=== PATIENT | female | born 1940 | race Caucasian/White ===

== ENCOUNTER 2017-11-27 08:20 | Day surgery (SDC) | payer MEDICARE, OTHER, SELFPAY ==
[2017-11-27 09:03] VITALS: BP 125/68; PULSE 68; RESP 16; TEMP 36.3; O2SAT 97
[2017-11-27] MEDS: PROPARACAINE 0.5% OPHTH SOL 2 DROPS EYE-OP (09:10)
[2017-11-27] MEDS: CATARACT EYE COMPOUND (10 DROPS/SYRINGE) 3 DROPS EYE-OP (09:11)
[2017-11-27 09:17] VITALS: BMI 23.1
--- NOTE | 2017-11-27 10:09 | PM.PREOP ---
Pre-operative Note Interval Note Pre-op Check: History & Physical Reviewed by Physician
[2017-11-27] MEDS: TRIAMCINOLONE 50 MG/5 ML VIAL INJ (10:21)
[2017-11-27] MEDS: CHONDROIDTIN/SOD HYALURONATE 1.05 ML SYRINGE INTRAOCULA (10:21)
[2017-11-27] MEDS: MOXIFLOXACIN OPHTH DROPS 3 ML BOTTLE 2 DROPS INJ (10:21)
[2017-11-27] MEDS: TETRACAINE 0.5% OPHTH DROPS 15 ML 2 DROPS EYE-LEFT (10:22)
[2017-11-27] MEDS: PHENYLEPHRINE/LIDOCAINE 3ML VIAL (OR) EYE-OP (10:23)
[2017-11-27] MEDS: LIDOCAINE JELLY 2% 5 ML 1 APPLIC TOP (10:23)
[2017-11-27] MEDS: BALANCED SALT IRRIG SOLN NO.2 500 ML, EPINEPHrine 1 MG IRR (10:24)
--- NOTE | 2017-11-27 10:30 | P.OP_ITS ---
Operative Date/Time/Diagnoses - Pre-op diagnosis: Cataract Left eye Post-op diagnosis: same Procedure & Clinicians Surgeon: Emir Michelle Anesthesia Type: MAC +/- and Sedation Operative Notes Procedure in detail: Patient brought to the operating suite. Tetracaine drops placed in the left eye. Patient was prepped and draped in sterile manner. Wire lid speculum was placed in the eye. Betadine drops were placed on the eye. This was irrigated. Lidocaine jelly was placed on the eye. A paracentesis port was created with a side-port blade. 0.1 mL 1% preservative free lidocaine was injected into the anterior chamber. The anterior chamber was deepened with viscoelastic. 2.6 mm keratome was used to create a temporal clear corneal incision. Cystotome and Utrata forceps were used to create continuous tear capsulorrhexis. Balanced salt solution was used to hydro dissect the nucleus. The phacoemulsification handpiece was inserted and the nucleus was removed using the stop and chop technique. The irrigation aspiration handpiece was inserted and the remaining cortex was removed. Anterior chamber was deepened with viscoelastic. An Wiely ZCB00 intraocular lens with a power of 18.0 was injected into the capsular bag. Irrigation aspiration handpiece was inserted and the remaining viscoelastic was removed. Incision was hydrated with balanced salt solution and found to be leak free with pressure with Weck- Teri sponges. 0.1 mL Vigamox injected anterior chamber. 0.3 mL Kenalog 10 mg was injected subconjunctivally. Lid speculum was removed. The patient left the operating room in excellent condition. Complications: none Condition: stable Disposition: same day surgery
[2017-11-27 10:42] VITALS: BP 125/68; PULSE 68; RESP 16; TEMP 36.3; O2SAT 98
--- NOTE | 2017-11-27 10:47 | SUR.PHASEII ---
pt very sleepy, moved to stretcher, friend at bedside.
[2017-11-27 11:02] VITALS: BP 141/78; PULSE 64; RESP 16; TEMP 36.7; O2SAT 97
--- NOTE | 2017-11-27 11:03 | SUR.PHASEII ---
pt more awake, conversing with friend at bedside. d/c instructions discussed,voiced being ready to go home.
== END 2017-11-27 11:16 | disposition home or self-care (01) ==
PROVIDERS: Family Provider Internal Medicine; PCP Internal Medicine; Visit Provider Ophthalmology
DX: H25.12 Age-related nuclear cataract, left eye (principal); F41.9 Anxiety disorder, unspecified
CPT/HCPCS: J0171; J2250; J3010; J3301

== ENCOUNTER 2018-02-12 09:49 | Day surgery (SDC) | payer MEDICARE, OTHER, SELFPAY ==
[2018-02-12 10:46] VITALS: BP 119/69; PULSE 69; RESP 16; TEMP 36.6; O2SAT 100; O2SAT 95; BMI 22.6; BMI 22.7
[2018-02-12] MEDS: PROPARACAINE 0.5% OPHTH SOL 2 DROPS EYE-RIGHT (10:55)
[2018-02-12] MEDS: CATARACT EYE COMPOUND (10 DROPS/SYRINGE) 3 DROPS EYE-OP (11:00)
--- NOTE | 2018-02-12 11:53 | P.OP.PRE_ITS ---
Pre-operative Note Interval Note Changes: No
--- NOTE | 2018-02-12 11:54 | P.OP_ITS ---
Operative Date/Time/Diagnoses Pre-op diagnosis: Cataract Right eye Post-op diagnosis: same Procedure & Clinicians Procedure: Cataract Surgery Same procedure as scheduled: Yes Surgeon: Emir Michelle Anesthesia Type: MAC +/- and Sedation Operative Notes Procedure in detail: Patient brought to the operating suite. Tetracaine drops placed in the right eye. Patient was prepped and draped in sterile manner. Wire lid speculum was placed in the eye. Betadine drops were placed on the eye. This was irrigated. Lidocaine jelly was placed on the eye. A paracentesis port was created with a side-port blade. 0.1 mL 1% preservative free lidocaine was injected into the anterior chamber. The anterior chamber was deepened with viscoelastic. 2.6 mm keratome was used to create a temporal clear corneal incision. Cystotome and Utrata forceps were used to create continuous tear capsulorrhexis. Balanced salt solution was used to hydro dissect the nucleus. The phacoemulsification handpiece was inserted and the nucleus was removed using the stop and chop technique. The irrigation aspiration handpiece was inserted and the remaining cortex was removed. Anterior chamber was deepened with viscoelastic. An Wiley ZCB00 intraocular lens with a power of 19.0 was injected into the capsular bag. Irrigation aspiration handpiece was inserted and the remaining viscoelastic was removed. Incision was hydrated with balanced salt solution and found to be leak free with pressure with Weck- Teri sponges. 0.1 mL Vigamox injected anterior chamber. 0.3 mL Kenalog 10 mg was injected subconjunctivally. Lid speculum was removed. The patient left the operating room in excellent condition. Complications: none Condition: stable Disposition: same day surgery
[2018-02-12] MEDS: LIDOCAINE JELLY 2% 5 ML 1 APPLIC TOP (12:12)
[2018-02-12] MEDS: MOXIFLOXACIN OPHTH DROPS 3 ML BOTTLE 2 DROPS INJ (12:12)
[2018-02-12] MEDS: CHONDROIDTIN/SOD HYALURONATE 1.05 ML SYRINGE INTRAOCULA (12:12)
[2018-02-12] MEDS: PHENYLEPHRINE/LIDOCAINE VIAL (OR) 0.2 ML EYE-OP (12:12)
[2018-02-12] MEDS: TRIAMCINOLONE 50 MG/5 ML VIAL INJ (12:13)
[2018-02-12] MEDS: TETRACAINE 0.5% OPHTH DROPS 15 ML 2 DROPS EYE-RIGHT (12:13)
[2018-02-12] MEDS: BALANCED SALT IRRIG SOLN NO.2 500 ML, EPINEPHrine 1 MG IRR (12:13)
[2018-02-12 12:25] VITALS: BP 101/60; PULSE 65; RESP 18; TEMP 36.4; O2SAT 97
== END 2018-02-12 12:40 | disposition home or self-care (01) ==
PROVIDERS: PCP Internal Medicine; Visit Provider Ophthalmology
DX: H25.11 Age-related nuclear cataract, right eye (principal); F41.9 Anxiety disorder, unspecified
CPT/HCPCS: J0171; J2250; J3010; J3301

== ENCOUNTER → 2018-04-30 14:06 | Outpatient (CLI) | payer MEDICARE, OTHER, SELFPAY ==
--- NOTE | 2018-04-30 | DI.RAD.S_ITS ---
PROCEDURE: XR LUMBAR SPINE 2-3V INDICATIONS: Low back pain TECHNIQUE: 3 views of the lumbar spine were acquired. COMPARISON: [facility], CT, ABDOMEN/PELVIS WITH CONTRAST, 07/14/2016, 9:09. [facility], MR, L-SPINE WITHOUT CONTRAST, 01/24/2012, 17:51. FINDINGS: Bones: 5 ary-bic-zsoqydd vertebrae are present. There is dextroconvex scoliotic curvature with apex at L2-3. There is trace retrolisthesis of L1 on L2, L2-L3, L3 on L4. Superior endplate deformity is present at L1, unchanged compared to 2017. Multilevel moderate disc space narrowing is present. Foraminal narrowing is noted throughout the lumbar spine most significant at L5-S1. No vertebral body compression fractures. No suspicious bony lesions. Soft tissues: Overlying bowel gas pattern is normal. No suspicious soft tissue calcifications. IMPRESSION: Multilevel degenerative changes as above most severe at L5-S1. Dictated by: Susan Khan M.D. on 04/30/2018 at 16:07 Approved by: Susan Khan M.D. on 04/30/2018 at 16:08
== END ==
PROVIDERS: PCP Internal Medicine; Visit Provider Internal Medicine
DX: M54.5 Low back pain (principal); M51.36 Other intervertebral disc degeneration, lumbar region; M51.37 Other intervertebral disc degeneration, lumbosacral region
CPT/HCPCS: 72100

== ENCOUNTER → 2018-05-29 10:27 | Outpatient (CLI) | payer MEDICARE, OTHER, SELFPAY ==
--- NOTE | 2018-05-29 | DI.MG.S_ITS ---
BILATERAL DIGITAL SCREENING MAMMOGRAM 3D/2D WITH CAD: 05/29/2018 CLINICAL: Routine screening. Comparison is made to exams dated: 05/01/2016 mammogram, 12/08/2014 mammogram, and 10/28/2012 mammogram - [facility]. The tissue of both breasts is heterogeneously dense. This may lower the sensitivity of mammography. Current study was also evaluated with a Computer Aided Detection (CAD) system. No significant masses, calcifications, or other findings are seen in either breast. There has been no significant interval change. IMPRESSION: NEGATIVE There is no mammographic evidence of malignancy. A 1 year screening mammogram is recommended. This exam was interpreted at Station ID: [id number]. NOTE: For mammograms, a report in lay terms will be sent to the patient. Approximately 15% of breast malignancies will not be visualized mammographically. In the management of a palpable breast mass, a negative mammogram must not discourage biopsy of a clinically suspicious lesion. Electronically Signed By: Verónica nova/rodrick:05/29/2018 16:38:35 letter sent: Normal Exam ACR BI-RADS Category 1: Negative [id number]
== END ==
PROVIDERS: PCP Internal Medicine; Visit Provider Internal Medicine
DX: Z12.31 Encounter for screening mammogram for malignant neoplasm of breast (principal)
CPT/HCPCS: 77063; 77067

== ENCOUNTER → 2018-07-10 07:46 | Outpatient (CLI) | payer MEDICARE, BC, SELFPAY ==
--- NOTE | 2018-07-10 | DI.MRI.S_ITS ---
PROCEDURE: MR ELBOW RT WO CON INDICATIONS: FLUID IN RIGHT ELBOW TECHNIQUE: Noncontrast coronal proton density fast spin echo and T2 fast spin echo with fat saturation, axial and sagittal T1 spin echo and T2 fast spin echo with fat saturation through the elbow. COMPARISON: None. FINDINGS: Image quality: Diagnostic. Lateral structures: The lateral ulnar collateral ligament and radial collateral ligament both appear intact. The annular ligament also appears intact. The overlying common extensor tendon demonstrates tendinopathy proximally but appears intact. Medial structures: The ulnar collateral ligament appears intact. The overlying common flexor tendon demonstrates tendinopathy proximally with peritendinous edema and minimal partial tearing at its origin. The ulnar nerve appears normal in size and signal within the cubital tunnel. Anterior structures: The biceps and brachialis tendons both appear intact as they insert onto the proximal radius and ulna, respectively. No bicipitoradial bursal fluid. The median and radial neurovascular bundles appear normal; no focal muscle atrophy to suggest nerve impingement. Posterior structures: The conjoint triceps tendon from the long and lateral heads appears intact. The medial head of the triceps tendon also appears normal, with direct muscle insertion onto the olecranon. No olecranon bursal fluid. Bone and cartilage: No bone marrow contusions or fractures. No osteochondral injuries. No elbow joint effusion. IMPRESSION: 1. Tendinopathy of the common flexor tendon with peritendinous edema and minimal partial tearing at its origin. Findings are compatible with medial epicondylitis. 2. Mild tendinopathy of the common extensor tendon laterally. Dictated by: Ilia Mac M.D. on 07/10/2018 at 11:03 Approved by: Ilia Mac M.D. on 07/10/2018 at 11:10
== END ==
PROVIDERS: PCP Internal Medicine; Visit Provider Internal Medicine
DX: M25.521 Pain in right elbow (principal); M77.01 Medial epicondylitis, right elbow
CPT/HCPCS: 73221

== ENCOUNTER 2018-11-16 06:42 | Inpatient (IN) | payer MEDICARE, BC, SELFPAY ==
[2018-11-16] VITALS (8 sets, daily range): BP systolic 125–175; BP diastolic 59–79; PULSE 67–83; RESP 16–27; TEMP 36.1–36.8; O2SAT 95–97; BMI 23.9
--- NOTE | 2018-11-16 | DI.RAD.S_ITS ---
PROCEDURE: XR ABDOMEN MIN 2V INDICATIONS: Small bowel obstruction TECHNIQUE: 2 views of the abdomen were acquired. COMPARISON: [facility], CT, CT ABDOMEN PELVIS W CON, 11/16/2018, 7:44. [facility], CR, XR LUMBAR SPINE 2-3V, 04/30/2018, 14:14. [facility], CT, ABDOMEN/PELVIS WITH CONTRAST, 07/14/2016, 9:09. FINDINGS: Surgical changes and devices: None. Bowel: Dilated loops of small bowel are again seen, which measure up to 3.2 cm. Moderate stool can be seen within the colon. On the upright image, no pathologic air-fluid levels are seen. Soft tissues: No masses; visualized solid organ contours appear normal in size. No suspicious abdominal calcifications. Excreting contrast can be seen within the renal collecting systems and within the bladder. Bones: No suspicious bony abnormalities. Mild dextroconvex scoliotic curvature is seen. Age-appropriate bony degenerative changes are seen. IMPRESSION: Dilated loops of small bowel are again seen. While small bowel obstruction is possible, the recent CT appearance is most consistent with ileus and constipation. Please consider a followup CT with oral contrast, with a long dwell time. Dictated by: Abhay Joseph M.D. on 11/16/2018 at 9:39 Approved by: Abhay Joseph M.D. on 11/16/2018 at 9:41
--- NOTE | 2018-11-16 06:51 | DI.CT.S_ITS ---
PROCEDURE: CT ABDOMEN PELVIS W CON INDICATIONS: Generalized abdominal pain TECHNIQUE: After the administration of intravenous contrast, 5 mm thick sections acquired from the diaphragm to the symphysis. 5 mm coronal and sagittal reformats were acquired. For radiation dose reduction, the following was used: automated exposure control, adjustment of mA and/or kV according to patient size. COMPARISON: [facility], CT, ABDOMEN/PELVIS WITH CONTRAST, 08/23/2008, 16:07. [facility], CT, ABDOMEN/PELVIS WITH CONTRAST, 12/16/2010, 8:52. [facility], CT, ABDOMEN/PELVIS WITH CONTRAST, 01/11/2015, 12:25. [facility], CT, ABDOMEN/PELVIS WITH CONTRAST, 07/14/2016, 9:09. FINDINGS: Image quality: Excellent. ABDOMEN: Lung bases: Mild dependent atelectasis versus scarring can be seen. A 4 mm subpleural left lower lobe nodule is again seen, as on series 3 image 5. Heart size is normal. A small hiatal hernia is incidentally noted. Solid organs: Liver is normal in size and enhancement. A subcentimeter right inferior liver cyst versus hemangioma can again be seen. Gallbladder wall is not thickened. Biliary system is non dilated. Pancreas enhances normally. Spleen is normal in size and enhancement. No adrenal nodules. Kidneys demonstrate normal size and enhancement, without hydronephrosis. Peritoneum and bowel: Abnormally prominent fluid filled loops of small bowel are seen, which measure up to 3 cm. There is abnormal fluid seen along the leaves of the mesentery within the right lower quadrant. The prominent loops of bowel are seen within the mid to distal small bowel, with the proximal small bowel loops demonstrate normal caliber. The distal most small bowel loops demonstrate normal caliber, although they demonstrate forming stool within them. A rectal anastomotic staple line can be seen. There is a moderate amount of stool seen within the colon. No free air is seen. No loculated abscess collection can be seen. Nodes and vessels: No retroperitoneal or mesenteric adenopathy by size criteria. Aorta and inferior vena cava are normal in size. Atherosclerotic calcification is noted. Miscellaneous: No ventral hernias. PELVIS: Genitourinary: Bladder wall thickness is normal. A mildly hyperenhancing uterine fibroid can be seen. Miscellaneous: No inguinal hernias or adenopathy. Bones: No suspicious bony lesions. No vertebral body compression fractures. Moderate dextroconvex scoliotic curvature is seen. Age-appropriate bony degenerative changes are seen. IMPRESSION: Abnormal bowel pattern, with mid to distal small bowel loops abnormally prominent and fluid-filled. The distal most small bowel loops demonstrate normal caliber, yet they demonstrate forming stool within them. There is a moderate amount of stool within the colon, which is attributed to constipation. The overall appearance is most consistent with poor mobility/ileus. If clinically appropriate, a repeat examination with oral contrast with a long dwell time could be considered for further evaluation. 4 mm left lower lobe pulmonary nodule. Given its stability, this is regarded to be benign. Incidental note is made of: Small hiatal hernia Moderate dextroconvex scoliosis Enhancing uterine fibroid Dictated by: Abhay Joseph M.D. on 11/16/2018 at 7:48 Approved by: Abhay Joseph M.D. on 11/16/2018 at 8:00
[2018-11-16] MEDS: ONDANSETRON 4 MG/2 ML INJ IV ×2 (07:07→12:14)
[2018-11-16] MEDS: SODIUM CHLORIDE 0.9% 1,000 ML 1000 ML IV (07:07)
[2018-11-16] MEDS: MORPHINE 4 MG/ML INJ IV (07:07)
[2018-11-16 07:12] LABS: Add Manual Diff / Slide Review NO; Basophils Absolute Auto 0 /uL (0-100); Basophils Percent Auto 0.5 % (0-2); Eosinophils Absolute Auto 100 /uL (0-450); Eosinophils Percent Auto 1.3 % (2-4); Hematocrit 43.3 % (36-46); Hemoglobin 14.5 g/dL (12.0-16.0); Lymphocytes Absolute Auto 1500 /uL (1100-4500); Lymphocytes Percent Auto 21.1 % (25-40); Mean Corpuscular HGB Conc 33.5 % (30-36); Mean Corpuscular Hemoglobin 31.6 PG (26-34); Mean Corpuscular Volume 94.5 fL (80-100); Monocytes Absolute Auto 400 /uL (0-900); Monocytes Percent Auto 5.8 % (3-14); Neutrophils Absolute Auto 5100 /uL (1500-7000); Neutrophils Percent Auto 71.3 % (50-75); Platelet Count 184 X10^3/uL (150-400); Red Blood Cell Count 4.58 X10^6/uL (4.0-5.2); Red Cell Distribution Width 13.1 % (11.6-14.8); White Blood Cell Count 7.1 X10^3/uL (4.5-11.0)
[2018-11-16 07:14] LABS: Lactate (Lactic Acid) 1.5 mmol/L (0.7-2.1)
[2018-11-16 07:15] LABS: Alanine Aminotransferase 22 IU/L (9-52); Albumin 4.1 g/dL (3.5-5.0); Albumin Globulin Ratio 1.6 (1.0-2.8); Alkaline Phosphatase 59 U/L (38-126); Aspartate Aminotransferase 24 IU/L (14-36); BUN Creatinine Ratio 16.3 (6-22); Bilirubin Total 0.2 mg/dL (0.2-1.3); Blood Urea Nitrogen 13 mg/dL (7-17); Calcium 9.7 mg/dL (8.4-10.2); Carbon Dioxide 29 mmol/L (22-32); Chloride 103 mmol/L (98-107); Estimated Glomerular Filt Rate > 60.0 mL/min (>60); Globulin 2.6 g/dL (1.7-4.1); Glucose 118 mg/dL (80-110); HEMOLYSIS < 15 (0-50); Lipase 40 U/L (23-300); Sodium 139 mmol/L (137-145); Total Protein 6.7 g/dL (6.3-8.2)
--- NOTE | 2018-11-16 07:58 | ED_ITS ---
HPI - Abdominal Pain General Chief Complaint: Abdominal Pain Stated Complaint: abdominal pain Time Seen by Provider: 11/16/18 06:45 Source: patient and family Mode of arrival: ambulatory Limitations: no limitations History of Present Illness HPI narrative: 78-year-old female nonsmoker with history of high cholesterol presents with a chief complaint of severe epigastric abdominal pain which is radiating down. She denies much in the way of provocation or palliation. She has associated nausea but no vomiting. She denies fever or chills. She denies chest pain or shortness of breath. She is not dizzy nor weak or lightheaded. She denies any history of the same. She does have a surgical history including bowel resection many years ago. She has been NPO since dinnertime last night MD complaint: abdominal pain Onset (ago): minute(s) Pain Consistency: intermittent Location: epigastric Severity: severe Quality: cramping and sharp Radiation: RLQ and suprapubic Relieving factors: nothing Exacerbating factors: nothing Associated symptoms: nausea Related Data Home Medications Medication Instructions Recorded Confirmed alprazolam 0.5 mg PO PRN PRN #0 07/14/16 11/16/18 pravastatin 40 mg PO DAILY 11/16/18 11/16/18 Allergies Allergy/AdvReac Type Severity Reaction Status Date / Time No Known Drug Allergies Allergy Verified 02/14/18 10:20 Review of Systems Constitutional Denies chills, Denies fever(s), Denies lethargy and Denies weakness Eyes Denies change in vision, Denies eye discharge, Denies irritation and Denies loss of vision ENT Ears, Nose, Mouth, and Throat: Denies change in voice, Denies neck pain and Denies sore throat Cardiovascular Denies chest pain, Denies irregular heart rhythm, Denies lightheadedness, Denies palpitations, Denies dyspnea, Denies dyspnea on exertion and Denies orthopnea Respiratory Denies cough, Denies dyspnea, Denies dyspnea on exertion and Denies wheezing Gastrointestinal Gastrointestinal: Reports abdominal pain, Denies change in bowel habits, Denies diarrhea, Reports nausea and Denies vomiting Genitourinary Denies hematuria, Denies flank pain, Denies urinary incontinence and Denies urinary urgency Musculoskeletal Denies neck pain Integumentary/Breasts Denies pruritus, Denies erythema, Denies rash and Denies wounds Neurologic Denies confusion, Denies loss of vision and Denies weakness Psychiatric Denies anxiety, Denies confusion, Denies depression, Denies homicidal ideation and Denies suicidal ideation Endocrine Denies palpitations Hematologic/Lymphatic Denies easy bruising Allergic/Immunologic Denies wheezing [facility] Surgical History Status post surgery (09/28/08) Social History (System 02/14/18 @ 10:20 by Milton Mcfadden) household members: none Smoking Status: Never smoker Social History household members: none Smoking Status: Never smoker Exam Narrative Exam Narrative: GENERAL: 78-year-old female, appears stated age, clearly uncomfortable, massaging her abdomen holding an emesis bag HEAD: Atraumatic. Normocephalic. No temporal or scalp tenderness. EYES: Pupils equal round and reactive. Extraocular motions intact. No scleral icterus. No injection or drainage. ENT: Nose without bleeding, purulent drainage or septal hematoma. Throat without erythema, tonsillar hypertrophy or exudate. Uvula midline. Airway patent. NECK: Trachea midline. No JVD or lymphadenopathy. Supple, nontender, no meningeal signs. CARDIOVASCULAR: Regular rate and rhythm without murmurs, gallops, or rubs. RESPIRATORY: Clear to auscultation. Breath sounds equal bilaterally. No wheezes, rales, or rhonchi. GASTROINTESTINAL: Abdomen soft, generally tender, though more in the RLQ. Decreased bowel sounds EXTREMITIES: No clubbing, cyanosis, or edema. No joint tenderness, effusion, or edema noted. BACK: Nontender without deformity or crepitance. No flank tenderness. NEURO: AOx3. SKIN: No rash or erythema. Initial Vital Signs Initial Vital Signs: Vital Signs Temperature 97.9 F 11/16/18 06:49 Pulse Rate 67 11/16/18 06:49 Respiratory Rate 18 11/16/18 06:49 Blood Pressure 155/67 H 11/16/18 06:49 Pulse Oximetry 96 11/16/18 06:49 Course Orders Ordered: ED Orders 11/16/18 06:45 Complete Blood Count AUTO DIFF Stat Comprehensive Metabolic Panel Stat Lactate (Lactic Acid) Stat Lipase Stat 11/16/18 06:51 CT abdomen pelvis w con Stat 11/17/18 05:00 Complete Blood Count AUTO DIFF Routine Comprehensive Metabolic Panel Routine Discontinued Medications Sodium Chloride (Normal Saline 0.9%) 1,000 mls @ 1,000 mls/hr IV BOLUS ONE Stop: 11/16/18 07:49 Last Infusion: 11/16/18 08:11 Dose: 0 mls/hr Admin: 11/16/18 07:07 Dose: 1,000 mls/hr Morphine Sulfate (Morphine) 4 mg IV NOW ONE Stop: 11/16/18 06:51 Last Admin: 11/16/18 07:07 Dose: 4 mg Morphine Sulfate (Morphine) 2 mg IV NOW ONE Stop: 11/16/18 07:44 Last Admin: 11/16/18 08:02 Dose: 2 mg Ondansetron HCl (Zofran) 4 mg IV NOW ONE Stop: 11/16/18 06:46 Last Admin: 11/16/18 07:07 Dose: 4 mg Vital Signs - 8 hr 11/16/18 06:49 11/16/18 07:30 11/16/18 09:19 Temperature 97.9 F Pulse Rate 67 74 74 Respiratory Rate 18 27 H 19 Blood Pressure 155/67 H Blood Pressure [Left Arm] 175/74 H 144/65 H Pulse Oximetry 96 97 95 MDM - Abdominal Pain Medical Records Attestation: I reviewed the patient's medical records. Lab Data Attestation: I reviewed the patient's lab results. Result diagrams: 11/16/18 06:45 11/16/18 06:45 Lab Results 11/16/18 11/16/18 11/16/18 Range/Units 06:45 06:45 06:45 WBC 7.1 (4.5-11.0) X10^3/uL RBC 4.58 (4.0-5.2) X10^6/uL Hgb 14.5 (12.0-16.0) g/dL Hct 43.3 (36-46) % MCV 94.5 (80-100) fL MCH 31.6 (26-34) PG MCHC 33.5 (30-36) % RDW 13.1 (11.6-14.8) % Plt Count 184 (150-400) X10^3/uL Neut % (Auto) 71.3 (50-75) % Lymph % (Auto) 21.1 L (25-40) % [place] % (Auto) 5.8 (3-14) % Eos % (Auto) 1.3 L (2-4) % Baso % (Auto) 0.5 (0-2) % Neut # (Auto) 5100 (3508-8812) /uL Lymph # (Auto) 1500 (7381-5758) /uL [place] # (Auto) 400 (0-900) /uL Eos # (Auto) 100 (0-450) /uL Baso # (Auto) 0 (0-100) /uL Sodium 139 (137-145) mmol/L Potassium 4.0 (3.4-5.1) mmol/L Chloride 103 (98-107) mmol/L Carbon Dioxide 29 (22-32) mmol/L BUN 13 (7-17) mg/dL Creatinine 0.80 (0.52-1.04) mg/dL Estimated GFR > 60.0 (>60) mL/min BUN/Creatinine Ratio 16.3 (6-22) Glucose 118 H (80-110) mg/dL Lactate 1.5 (0.7-2.1) mmol/L Calcium 9.7 (8.4-10.2) mg/dL Total Bilirubin 0.2 (0.2-1.3) mg/dL AST 24 (14-36) IU/L ALT 22 (9-52) IU/L Alkaline Phosphatase 59 (38-126) U/L Total Protein 6.7 (6.3-8.2) g/dL Albumin 4.1 (3.5-5.0) g/dL Globulin 2.6 (1.7-4.1) g/dL Albumin/Globulin Ratio 1.6 (1.0-2.8) Lipase 40 (23-300) U/L Point of care testing: Urine Dip Bedside Urine Glucose Negative Bedside Urine Bilirubin - Negative Bedside Urine Ketone - Negative Urine Specific [place] 1.015 Bedside Urine Occult Blood - Negative Bedside Urine pH 7.0 Bedside Urine Protein - Negative Bedside Urine Urobilinogen - Negative Bedside Urine Nitrite - Negative Bedside Urine Leukocytes - Negative Esterase Imaging Data CT scan - abdomen: Radiologist's impression: [address] [address] [address] Scan Report Signed Patient: Greta Hernandez LMR#: [id number] : [id number]:[id number] Age/Sex: 78 / FDate of Service: 11/16/18 Loc: ED Accession Number: [id number] Procedure: CT abdomen pelvis w con Ordering Provider: Tra Varner D.O. PROCEDURE: CT ABDOMEN PELVIS W CON INDICATIONS: Generalized abdominal pain TECHNIQUE: After the administration of intravenous contrast, 5 mm thick sections acquired from the diaphragm to the symphysis. 5 mm coronal and sagittal reformats were acquired. For radiation dose reduction, the following was used: automated exposure control, adjustment of mA and/or kV according to patient size. COMPARISON: [facility], CT, ABDOMEN/PELVIS WITH CONTRAST, 08/23/2008, 16:07. [facility], CT, ABDOMEN/PELVIS WITH CONTRAST, 12/16/2010, 8:52. [facility], CT, ABDOMEN/PELVIS WITH CONTRAST, 01/11/2015, 12:25. [facility], CT, ABDOMEN/PELVIS WITH CONTRAST, 07/14/2016, 9:09. FINDINGS: Image quality: Excellent. ABDOMEN: Lung bases: Mild dependent atelectasis versus scarring can be seen. A 4 mm subpleural left lower lobe nodule is again seen, as on series 3 image 5. Heart size is normal. A small hiatal hernia is incidentally noted. Solid organs: Liver is normal in size and enhancement. A subcentimeter right inferior liver cyst versus hemangioma can again be seen. Gallbladder wall is not thickened. Biliary system is non dilated. Pancreas enhances normally. Spleen is normal in size and enhancement. No adrenal nodules. Kidneys demonstrate normal size and enhancement, without hydronephrosis. Peritoneum and bowel: Abnormally prominent fluid filled loops of small bowel are seen, which measure up to 3 cm. There is abnormal fluid seen along the leaves of the mesentery within the right lower quadrant. The prominent loops of bowel are seen within the mid to distal small bowel, with the proximal small bowel loops demonstrate normal caliber. The distal most small bowel loops demonstrate normal caliber, although they demonstrate forming stool within them. A rectal anastomotic staple line can be seen. There is a moderate amount of stool seen within the colon. No free air is seen. No loculated abscess collection can be seen. Nodes and vessels: No retroperitoneal or mesenteric adenopathy by size criteria. Aorta and inferior vena cava are normal in size. Atherosclerotic calcification is noted. Miscellaneous: No ventral hernias. PELVIS: Genitourinary: Bladder wall thickness is normal. A mildly hyperenhancing uterine fibroid can be seen. Miscellaneous: No inguinal hernias or adenopathy. Bones: No suspicious bony lesions. No vertebral body compression fractures. Moderate dextroconvex scoliotic curvature is seen. Age-appropriate bony degenerative changes are seen. IMPRESSION: Abnormal bowel pattern, with mid to distal small bowel loops abnormally prominent and fluid-filled. The distal most small bowel loops demonstrate normal caliber, yet they demonstrate forming stool within them. There is a moderate amount of stool within the colon, which is attributed to constipation. The overall appearance is most consistent with poor mobility/ileus. If clinically appropriate, a repeat examination with oral contrast with a long dwell time could be considered for further evaluation. 4 mm left lower lobe pulmonary nodule. Given its stability, this is regarded to be benign. Incidental note is made of: Small hiatal hernia Moderate dextroconvex scoliosis Enhancing uterine fibroid Dictated by: Abhay Joseph M.D. on 11/16/2018 at 7:48 Approved by: Abhay Joseph M.D. on 11/16/2018 at 8:00 MDM Narrative Medical decision making narrative: 78F with gradually worsening, severe abdominal pain and nausea. No fever or chills. Hx of diverticulits and subseque nt resection. Decreased BM. Requires multiple doses of pain meds and antiemetics. CT notes fluid levels in multiple bowel loops but no obvious obstruction. No cardiac history, normal lactate/WBC, considered ischemia but thought unlikely. Suspect early SBO. Call to Gen Surg, he is happy to consult [facility] requests admit to hospitalist Discharge Plan Departure Patient Disposition: Admitted as Observation Clinical Impression: Adynamic ileus Abdominal pain Qualifiers: Abdominal location: generalized Qualified Code(s): R10.84 - Generalized abdominal pain Referrals: Daysi Baltazar MD [Primary Care Provider] - Admit Date/Time: 11/16/18 10:03 Admit Provider: Ian Gonzales
[2018-11-16] MEDS: MORPHINE 2 MG/ML INJ IV (08:02)
--- NOTE | 2018-11-16 10:12 | PC.NURSE ---
Takes a medication from [place] called Salpride. Its a dont yell at your family medication
--- NOTE | 2018-11-16 10:17 | P.HP_ITS ---
History of Present Illness Date Patient Seen: 11/16/18 Time Patient Seen: 10:16 Chief complaint: abdominal pain Narrative: This is a 78-year-old female with no prior history of bowel obstruct ion who presents with sudden onset of epigastric pain at 3:15 a.m. today. This pain woke her up and produced dry retching/nausea but no vomiting. She had no diarrhea, fever, chest pain, coughing, shortness of breath. She drinks 2 glasses of wine per day. She has had prior abdominal surgery for an ectopic . Her lipase and liver enzymes are normal. On my exam she is tender over the right upper quadrant. A gallbladder ultrasound will be added at this time. Her CT scan shows evidence of air-fluid levels suggestive of ileus or early small bowel obstruction. This was discussed with General surgery and a bowel rest admission with IV fluid support was recommended and accepted by the patient. The CT report is: IMPRESSION: Abnormal bowel pattern, with mid to distal small bowel loops abnormally prominent and fluid-filled. The distal most small bowel loops demonstrate normal caliber, yet they demonstrate forming stool within them. There is a moderate amount of stool within the colon, which is attributed to constipation. The overall appearance is most consistent with poor mobility/ileus.If clinically appropriate, a repeat examination with oral cont rast with a long dwell time could be considered for further evaluation. 4 mm left lower lobe pulmonary nodule. Given its stability, this is regarded to be benign. Incidental note is made of: Small hiatal hernia Moderate dextroconvex scoliosis Enhancing uterine fibroid Patient History Medical History (Updated 11/16/18 @ 11:51 by Ian Gonzales MD) History of ectopic (Acute) Hyperlipidemia (Acute) Surgical History (Updated 11/16/18 @ 11:48 by Ian Gonzales MD) History of laparotomy (Acute) Status post surgery (09/28/08) Family History (Updated 11/16/18 @ 11:50 by Ian Gonzales MD) Father MVA (motor vehicle accident) Mother Congestive heart failure Social History household members: significant other Smoking Status: Never smoker Family & Social History Family History (Updated 11/16/18 @ 11:50 by Ian Gonzales MD) Father MVA (motor vehicle accident) Mother Congestive heart failure Social History: household members none Tobacco & Substance use: Smoking Status Never smoker Substance Use Type does not use Comment: Her backup decision maker is her daughter Mikael Carvajal She lives in [place] is in her own home with her partner, who is with her today. She drinks 2 glasses of wine per day. She denies drugs, THC, smoking. Meds Home Medications Medication Instructions Recorded Confirmed Type alprazolam 0.5 mg PO PRN PRN #0 07/14/16 11/16/18 History pravastatin 40 mg PO DAILY 11/16/18 11/16/18 History Allergies Allergy/AdvReac Type Severity Reaction Status Date / Time No Known Drug Allergies Allergy Verified 02/14/18 10:20 Review of Systems Review of Systems Positive for nausea, dry retching, abdominal pain. Negative for fevers, chills, sweats, coughing, chest pain, palpitations, bleeding, rash, diarrhea, joint pain, seizures, new allergies, difficulty walking, difficulty talking, hearing loss. All systems reviewed & are unremarkable except as noted in HPI and below Exam Vital Signs (past 8 hours): - 11/16/18 06:49 11/16/18 07:30 11/16/18 09:19 Temperature 97.9 F Pulse Rate 67 74 74 Respiratory Rate 18 27 H 19 Blood Pressure 155/67 H Blood Pressure [Left Arm] 175/74 H 144/65 H Pulse Oximetry 96 97 95 Oxygen Delivery Method Room Air Narrative Exam Narrative: Alert and oriented x3. No apparent distress. Pupils are equally round and reactive to light and accommodation. Extraocular muscles are intact. Sclera are pink and not icteric. No lymph nodes are felt head, neck, supraclavicular area. There is no thyromegaly. JVD is less than 6 cm. No carotid bruits are heard. Heart is regular rate and rhythm without murmur. Lungs are clear to auscultation bilaterally. Abdomen is soft, no organomegaly, bowel sounds active, with significant right upper quadrant tenderness. Extremities have no ankle edema. Neuro exam. Cranial nerves 2-12 tested intact. Motor function is 5/5 throughout. DTR is symmetric. Balance is adequate. Skin has no rash or jaundice. Objective Labs Result Diagrams: 11/16/18 06:45 11/16/18 06:45 Labs: Laboratory Results - last 24 hr 11/16/18 11/16/18 11/16/18 06:45 06:45 06:45 WBC 7.1 RBC 4.58 Hgb 14.5 Hct 43.3 MCV 94.5 MCH 31.6 MCHC 33.5 RDW 13.1 Plt Count 184 Neut % (Auto) 71.3 Lymph % (Auto) 21.1 L [place] % (Auto) 5.8 Eos % (Auto) 1.3 L Baso % (Auto) 0.5 Neut # (Auto) 5100 Lymph # (Auto) 1500 [place] # (Auto) 400 Eos # (Auto) 100 Baso # (Auto) 0 Sodium 139 Potassium 4.0 Chloride 103 Carbon Dioxide 29 BUN 13 Creatinine 0.80 Estimated GFR > 60.0 BUN/Creatinine Ratio 16.3 Glucose 118 H Lactate 1.5 Calcium 9.7 Total Bilirubin 0.2 AST 24 ALT 22 Alkaline Phosphatase 59 Total Protein 6.7 Albumin 4.1 Globulin 2.6 Albumin/Globulin Ratio 1.6 Lipase 40 Assessment & Plan Assessment & Plan narrative: Abdominal pain -abdominal ultrasound ordered due to tenderness localizing to the right upper quadrant. -pancreatitis ruled out with normal CT pancreas appearance and normal lipase. -begin IV Pepcid for possible gastritis/duodenitis. -bowel rest, IV fluids, IV Dilaudid for probable early bowel obstruction. -general surgery is aware of her admission and is available if her conditions change or she does not improve. -consider repeat imaging tomorrow. -EKG pending Early bowel obstruction -general surgery is aware of her admission and is available if her conditions change or she does not improve -consider repeat imaging tomorrow -continue bowel rest and IV fluid support Hyperlipidemia -hold pravastatin while NPO
[2018-11-16] MEDS: DEXTROSE 5%-0.9% NS 1,000 ML 100 ML IV ×3 (10:52→21:08)
--- NOTE | 2018-11-16 11:47 | DI.US.S_ITS ---
PROCEDURE: US ABDOMEN LIMITED INDICATIONS: RIGHT UPPER QUADRANT TENDERNESS TECHNIQUE: Real-time focused scanning was performed of the abdomen, with image documentation. COMPARISON: [facility], CR, XR ABDOMEN MIN 2V, 11/16/2018, 10:24. [facility], CT, CT ABDOMEN PELVIS W CON, 11/16/2018, 7:44. FINDINGS: The liver demonstrates normal size and demonstrates no focal ultrasound abnormality. The visualized pancreas is unremarkable. No findings of gallstones or sludge are seen. The gallbladder wall is not thickened, measuring 3 mm or less. No specific pericholecystic fluid is seen. The sonographic Ramos sign is negative. There is no biliary dilatation, the common bile duct measures 6 mm. IMPRESSION: The gallbladder demonstrates a normal sonographic appearance. No biliary dilatation is seen. Dictated by: Abhay Joseph M.D. on 11/16/2018 at 12:37 Approved by: Abhay Joseph M.D. on 11/16/2018 at 12:38
[2018-11-16] MEDS: HYDROMORPHONE 1 MG INJ IV ×5 (12:06→23:23)
[2018-11-16] MEDS: FAMOTIDINE 20 MG/50 ML PIGGYBACK 200 MG IV (12:42)
[2018-11-17] VITALS (17 sets, daily range): BP systolic 99–157; BP diastolic 45–93; PULSE 66–89; RESP 11–49; TEMP 36.2–37.7; O2SAT 91–98
[2018-11-17] MEDS: HYDROMORPHONE 1 MG INJ IV ×3 (01:16→05:26)
[2018-11-17] MEDS: ONDANSETRON 4 MG/2 ML INJ IV ×2 (03:15→13:12)
[2018-11-17] MEDS: DEXTROSE 5%-0.9% NS 1,000 ML 100 ML IV (05:26)
[2018-11-17 06:03] LABS: Add Manual Diff / Slide Review NO; Basophils Absolute Auto 0 /uL (0-100); Basophils Percent Auto 0.2 % (0-2); Eosinophils Absolute Auto 0 /uL (0-450); Eosinophils Percent Auto 0.1 % (2-4); Hematocrit 43.9 % (36-46); Hemoglobin 14.4 g/dL (12.0-16.0); Lymphocytes Absolute Auto 900 /uL (1100-4500); Lymphocytes Percent Auto 9.6 % (25-40); Mean Corpuscular HGB Conc 32.9 % (30-36); Mean Corpuscular Hemoglobin 31.2 PG (26-34); Monocytes Absolute Auto 600 /uL (0-900); Monocytes Percent Auto 5.8 % (3-14); Neutrophils Absolute Auto 8000 /uL (1500-7000); Neutrophils Percent Auto 84.3 % (50-75); Platelet Count 175 X10^3/uL (150-400); Red Blood Cell Count 4.62 X10^6/uL (4.0-5.2); Red Cell Distribution Width 13.7 % (11.6-14.8); White Blood Cell Count 9.5 X10^3/uL (4.5-11.0)
[2018-11-17 06:06] LABS: Alanine Aminotransferase 20 IU/L (9-52); Albumin 3.6 g/dL (3.5-5.0); Albumin Globulin Ratio 1.3 (1.0-2.8); Alkaline Phosphatase 55 U/L (38-126); Aspartate Aminotransferase 18 IU/L (14-36); BUN Creatinine Ratio 13.3 (6-22); Bilirubin Total 0.3 mg/dL (0.2-1.3); Blood Urea Nitrogen 8 mg/dL (7-17); Calcium 8.6 mg/dL (8.4-10.2); Carbon Dioxide 26 mmol/L (22-32); Chloride 108 mmol/L (98-107); Estimated Glomerular Filt Rate > 60.0 mL/min (>60); Globulin 2.7 g/dL (1.7-4.1); Glucose 150 mg/dL (80-110); HEMOLYSIS < 15 (0-50); Potassium 4.1 mmol/L (3.4-5.1); Sodium 139 mmol/L (137-145); Total Protein 6.3 g/dL (6.3-8.2)
[2018-11-17] MEDS: KETOROLAC 30 MG/ML VIAL IV (07:01)
--- NOTE | 2018-11-17 07:12 | DI.CT.S_ITS ---
PROCEDURE: CT ABDOMEN PELVIS W CON INDICATIONS: worsening abd pain, nausea, illeus vs ischemia TECHNIQUE: After the administration of intravenous contrast, 5 mm thick sections acquired from the diaphragm to the symphysis. 5 mm coronal and sagittal reformats were acquired. For radiation dose reduction, the following was used: automated exposure control, adjustment of mA and/or kV according to patient size. COMPARISON: [facility], CT, ABDOMEN/PELVIS WITH CONTRAST, 01/11/2015, 12:25. [facility], CT, ABDOMEN/PELVIS WITH CONTRAST, 07/14/2016, 9:09. [facility], CT, CT ABDOMEN PELVIS W CON, 11/16/2018, 7:44. FINDINGS: Image quality: Excellent. ABDOMEN: Lung bases: There is a small right effusion, which is new. There are bibasilar atelectasis. 4 mm left lower lobe nodule is unchanged. Mild right basilar infiltrate may be present. Heart size is normal. Solid organs: A 6 mm indeterminate hepatic hypodensity in the right hepatic lobe appears unchanged. Liver is normal in size and enhancement. Gallbladder contains excreted IV contrast from prior contrast enhanced CT study. Biliary system is non dilated. Pancreas enhances normally. Spleen is normal in size and enhancement. No adrenal nodules. Kidneys demonstrate normal size and enhancement, without hydronephrosis. Peritoneum and bowel: Stomach is nondistended. There are fluid-filled distended small bowel loops in the mid to lower abdomen measuring up to 4.1 cm in diameter, which is increased compared to the last exam. Proximal and distal small bowels are decompressed. The findings are concerning for closed loop small bowel obstruction. There is short segment thickening of small bowel in the right lower quadrant. There is a small moderate amount of free fluid, which is new. No free air. There is moderate amount of stool in colon. A few colonic diverticula are present, but no active diverticulitis. Nodes and vessels: No retroperitoneal or mesenteric adenopathy by size criteria. Aorta and inferior vena cava are normal in size. Moderate atherosclerosis. Miscellaneous: No ventral hernias. PELVIS: Genitourinary: Bladder wall thickness is normal. There is a hazy nodular uterus consistent with a uterine fibroid. A small amount of free fluid is present in the cul-de-sac. Miscellaneous: No inguinal hernias or adenopathy. Bones: No suspicious bony lesions. Mild vertebral body compression fracture of L1. Degenerative changes in lumbar spine. IMPRESSION: 1. There are fluid-filled, distended small bowel loops in the mid to lower abdomen measuring up to 4.1 cm in diameter, which is increased compared to the last exam. Proximal and distal small bowels are decompressed. The findings are suspicious for closed loop small bowel obstruction. There is short segment thickening of small bowel in the right lower quadrant, which may be secondary to infection/inflammation, ischemia or neoplasm. Recommend clinical and imaging followup. 2. Small to moderate amount of free fluid in peritoneal cavity, which is new. 3. Small new right pleural effusion with right basilar atelectasis. Result was discussed with Dr. Gonzales on 11/17/2018 at 0758 hours. Dictated by: Josh Thomas M.D. on 11/17/2018 at 8:03 Approved by: Josh Thomas M.D. on 11/17/2018 at 8:34
--- NOTE | 2018-11-17 09:12 | P.PN_ITS ---
Subjective Date Patient Seen: 11/17/18 Time Patient Seen: 09:12 Interval history: She is seen in her room today to follow-up her bowel obstruction and related symptoms. Overnight she became more uncomfortable, experiencing more pain and so a repeat CT scan was arranged that shows a closed loop obstruction with new intra-abdominal ascites. There is also suggestion of atelectasis. General surgery has been consulted and will be operating on her today. Exam Vital Signs (past 8 hours): - 11/17/18 03:19 11/17/18 07:49 Temperature 97.8 F 98.6 F Pulse Rate 82 83 Respiratory Rate 18 16 Blood Pressure 149/72 H 157/93 H Pulse Oximetry 93 93 Oxygen Delivery Method Room Air Oxygen Flow Rate 0 Narrative Exam Narrative: Alert and oriented x3. She appears to be in moderate abdominal pain distress. Heart is regular rate and rhythm without murmur. Lungs are clear to auscultation bilaterally. Abdomen is diffusely tender and mildly distended. Bowel sounds are not heard. Extremities have no ankle edema. Objective Labs Result Diagrams: 11/17/18 05:50 11/17/18 05:50 Labs: Laboratory Results - last 24 hr 11/17/18 11/17/18 05:50 05:50 WBC 9.5 RBC 4.62 Hgb 14.4 Hct 43.9 MCV 95.0 MCH 31.2 MCHC 32.9 RDW 13.7 Plt Count 175 Neut % (Auto) 84.3 H Lymph % (Auto) 9.6 L [place] % (Auto) 5.8 Eos % (Auto) 0.1 L Baso % (Auto) 0.2 Neut # (Auto) 8000 H Lymph # (Auto) 900 L [place] # (Auto) 600 Eos # (Auto) 0 Baso # (Auto) 0 Sodium 139 Potassium 4.1 Chloride 108 H Carbon Dioxide 26 BUN 8 Creatinine 0.60 Estimated GFR > 60.0 BUN/Creatinine Ratio 13.3 Glucose 150 H Calcium 8.6 Total Bilirubin 0.3 AST 18 ALT 20 Alkaline Phosphatase 55 Total Protein 6.3 Albumin 3.6 Globulin 2.7 Albumin/Globulin Ratio 1.3 Assessment & Plan Assessment & Plan narrative: Abdominal pain -abdominal ultrasound showed a normal gallbladder and liver -pancreatitis ruled out with normal CT pancreas appearance and normal lipase. -IV Pepcid for possible gastritis/duodenitis. -bowel rest, IV fluids, IV Dilaudid used overnight until the pain worsened and CT shows an acute emergency abdomen. -general surgery is notified of the CT scan results and will be taking her for surgery immediately. Closed loop bowel obstruction -she remains NPO and will be going for surgery today. Hyperlipidemia -hold pravastatin while NPO Right Pleural Effusion/Atelectasis -this appears to be reactive, related to the abdominal condition. -no signs of pneumonia. White blood count is normal at 9.5. Hyperglycemia -blood sugar has risen to 150. This will need to be followed postoperatively.
--- NOTE | 2018-11-17 09:15 | PM.CN ---
History of Present Illness Date Patient Seen: 11/17/18 Time Patient Seen: 09:18 Chief complaint: abdominal pain Reason for consult: Closed loop small bowel obstruction Narrative: 78-year-old white female patient comes to the hospital yesterday with sudden onset of mid abdominal pain nausea but no vomiting came the emergency room where she had a normal white count normal lactic acid of 1.5 CT scan of the abdomen revealing what appeared to be an adynamic ileus. Pain has increased overnight with no vomiting she is not able to pass flatus or stool. Repeat CT scan of the abdomen now reveals what appears to be a closed loop small-bowel obstruction. this is a surgical emergency which I have explained to the patient and her significant other and we will proceed with urgent exploratory laparotomy. [facility] Medical History History of ectopic (Acute) Hyperlipidemia (Acute) Surgical History (Updated 11/16/18 @ 11:48 by Ian Gonzales MD) History of laparotomy (Acute) Status post surgery (09/28/08) Family History (Updated 11/16/18 @ 11:50 by Ian Gonzales MD) Father MVA (motor vehicle accident) Mother Congestive heart failure Social History household members: significant other Smoking Status: Never smoker Social History household members: significant other Smoking Status: Never smoker Meds Home Medications Medication Instructions Recorded Confirmed Type alprazolam 0.5 mg PO PRN PRN #0 07/14/16 11/16/18 History pravastatin 40 mg PO DAILY 11/16/18 11/16/18 History Allergies Allergy/AdvReac Type Severity Reaction Status Date / Time No Known Drug Allergies Allergy Verified 02/14/18 10:20 Review of Systems Review of Systems All systems reviewed & are unremarkable except as noted in HPI and below Exam Vital Signs (past 8 hours): - 11/17/18 03:19 11/17/18 07:49 Temperature 97.8 F 98.6 F Pulse Rate 82 83 Respiratory Rate 18 16 Blood Pressure 149/72 H 157/93 H Pulse Oximetry 93 93 Oxygen Delivery Method Room Air Oxygen Flow Rate 0 Narrative Exam Narrative: Patient is alert and oriented she is afebrile She is not complaining of vomiting but she is quite nauseated. She has had considerable mid abdominal pain this morning. Lungs are clear with no rales or wheezes Heart regular rhythm no murmur Abdomen is distended tympanitic and tender in all 4 quadrants. I do not palpate any masses nor do I identify any hernias. Objective Labs Result Diagrams: 11/17/18 05:50 11/17/18 05:50 Labs: Laboratory Results - last 24 hr 11/17/18 11/17/18 05:50 05:50 WBC 9.5 RBC 4.62 Hgb 14.4 Hct 43.9 MCV 95.0 MCH 31.2 MCHC 32.9 RDW 13.7 Plt Count 175 Neut % (Auto) 84.3 H Lymph % (Auto) 9.6 L [place] % (Auto) 5.8 Eos % (Auto) 0.1 L Baso % (Auto) 0.2 Neut # (Auto) 8000 H Lymph # (Auto) 900 L [place] # (Auto) 600 Eos # (Auto) 0 Baso # (Auto) 0 Sodium 139 Potassium 4.1 Chloride 108 H Carbon Dioxide 26 BUN 8 Creatinine 0.60 Estimated GFR > 60.0 BUN/Creatinine Ratio 13.3 Glucose 150 H Calcium 8.6 Total Bilirubin 0.3 AST 18 ALT 20 Alkaline Phosphatase 55 Total Protein 6.3 Albumin 3.6 Globulin 2.7 Albumin/Globulin Ratio 1.3 Assessment & Plan Assessment & Plan narrative: Patient has a small-bowel obstruction which may well be a closed loop obstruction. as this represents a surgical emergency she is prepared for urgent laparotomy. Patient understands the nature of the problem and the solution with urgent surgery and agrees and has no further questions
--- NOTE | 2018-11-17 09:22 | P.CONS_ITS ---
History of Present Illness Date Patient Seen: 11/17/18 Time Patient Seen: 09:18 Chief complaint: abdominal pain Reason for consult: Closed loop small bowel obstruction Narrative: 78-year-old white female patient comes to the hospital yesterday with sudden onset of mid abdominal pain nausea but no vomiting came the emergency room where she had a normal white count normal lactic acid of 1.5 CT scan of the abdomen revealing what appeared to be an adynamic ileus. Pain has increased overnight with no vomiting she is not able to pass flatus or stool. Repeat CT scan of the abdomen now reveals what appears to be a closed loop small-bowel obstruction. this is a surgical emergency which I have explained to the patient and her significant other and we will proceed with urgent exploratory laparotomy. [facility] Medical History History of ectopic (Acute) Hyperlipidemia (Acute) Surgical History (Updated 11/16/18 @ 11:48 by Ian Gonzales MD) History of laparotomy (Acute) Status post surgery (09/28/08) Family History (Updated 11/16/18 @ 11:50 by Ian Gonzales MD) Father MVA (motor vehicle accident) Mother Congestive heart failure Social History household members: significant other Smoking Status: Never smoker Social History household members: significant other Smoking Status: Never smoker Meds Home Medications Medication Instructions Recorded Confirmed Type alprazolam 0.5 mg PO PRN PRN #0 07/14/16 11/16/18 History pravastatin 40 mg PO DAILY 11/16/18 11/16/18 History Allergies Allergy/AdvReac Type Severity Reaction Status Date / Time No Known Drug Allergies Allergy Verified 02/14/18 10:20 Review of Systems Review of Systems All systems reviewed & are unremarkable except as noted in HPI and below Exam Vital Signs (past 8 hours): - 11/17/18 03:19 11/17/18 07:49 Temperature 97.8 F 98.6 F Pulse Rate 82 83 Respiratory Rate 18 16 Blood Pressure 149/72 H 157/93 H Pulse Oximetry 93 93 Oxygen Delivery Method Room Air Oxygen Flow Rate 0 Narrative Exam Narrative: Patient is alert and oriented she is afebrile She is not complaining of vomiting but she is quite nauseated. She has had considerable mid abdominal pain this morning. Lungs are clear with no rales or wheezes Heart regular rhythm no murmur Abdomen is distended tympanitic and tender in all 4 quadrants. I do not palpate any masses nor do I identify any hernias. Objective Labs Result Diagrams: 11/17/18 05:50 11/17/18 05:50 Labs: Laboratory Results - last 24 hr 11/17/18 11/17/18 05:50 05:50 WBC 9.5 RBC 4.62 Hgb 14.4 Hct 43.9 MCV 95.0 MCH 31.2 MCHC 32.9 RDW 13.7 Plt Count 175 Neut % (Auto) 84.3 H Lymph % (Auto) 9.6 L [place] % (Auto) 5.8 Eos % (Auto) 0.1 L Baso % (Auto) 0.2 Neut # (Auto) 8000 H Lymph # (Auto) 900 L [place] # (Auto) 600 Eos # (Auto) 0 Baso # (Auto) 0 Sodium 139 Potassium 4.1 Chloride 108 H Carbon Dioxide 26 BUN 8 Creatinine 0.60 Estimated GFR > 60.0 BUN/Creatinine Ratio 13.3 Glucose 150 H Calcium 8.6 Total Bilirubin 0.3 AST 18 ALT 20 Alkaline Phosphatase 55 Total Protein 6.3 Albumin 3.6 Globulin 2.7 Albumin/Globulin Ratio 1.3 Assessment & Plan Assessment & Plan narrative: Patient has a small-bowel obstruction which may well be a closed loop obstruction. as this represents a surgical emergency she is prepared for urgent laparotomy. Patient understands the nature of the problem and the solution with urgent surgery and agrees and has no further questions
[2018-11-17] MEDS: CEFOTETAN 1 GM/50 ML PIGGYBACK IV (09:33)
[2018-11-17] MEDS: BACITRACIN 50,000 UNIT VIAL 50000 UNIT IRR (10:33)
--- NOTE | 2018-11-17 10:51 | PM.OP.1 ---
Operative Date/Time/Diagnoses Date of procedure: 11/17/18 Time of procedure: 10:51 Pre-op diagnosis: Closed loop small bowel obstruction Post-op diagnosis: same Procedure & Clinicians Procedure: Exploratory laparotomy enterolysis release of closed loop small-bowel obstruction Same procedure as scheduled: Yes Indications: Small-bowel obstruction Surgeon: Arpit Richmond Click Yes if Unassisted: Yes Anesthesia Type: General and Epidural Operative Notes Findings: Patient had high-grade small-bowel obstruction closed loop with very ischemic small bowel. Closure Type: primary Applied: catheter Estimated Blood Loss (mL): 50 Blood products transfused: none Procedure in detail: The patient was properly identified during surgical pause prepped and draped in sterile fashion with exposure of the mid abdomen under general endotracheal anesthesia midline incisions made the abdomen explored patient had massive distention of the small bowel with a complete closed loop small bowel obstruction. identified the point of obstruction where there was a single adhesive band crossing the torsion of the mesentery. the bowel was very cyanotic. Upon dividing the adhesive band the bowel immediately was reperfused and became pink. I observed this segment of bowel for some time initially covering it with a warm saline soaked towel. On final inspection the bowel was well perfused and had peristalsis throughout the previously ischemic segment. The abdomen is irrigated with bacitracin saline aspirating the all the fluid. Bowel was returned to its anatomic position. I had completely inspected the bowel from ligament of Treitz to ileocecal valve finding no other abnormalities. fascia closed with 1. [place]. Subcu irrigated with bacitracin saline aspirated dry there was no bleeding skin korey sterile dressings applied procedure was very well tolerated. Patient had an epidural catheter placed prior to the institution of the procedure for postoperative pain control. Complications: none Condition: stable Disposition: ICU
--- NOTE | 2018-11-17 11:04 | PM.PROC.1 ---
Procedures Date/Time Date of procedure: 11/17/18 Time of procedure: 09:35 General Procedure description: Thoracic epidural for post ex-lap pain control. Risks and benefits of procedure were discussed with patient prior to surgery. Need for ICU bed post-op for epidural nursing management. Procedure performed in the OR in sitting position with ASA monitoring and sedation, 50mcg fentanyl and 2mg versed. Skin was prepped with chlorhexindine. 1% lidocaine used for skin anesthesia. Using an 18 ga Barb needle and ROSINA saline syringe, the T9-10 interspace was accessed. ROSINA occured at 6cm from skin. Epidural catheter was threaded to 11cm. After negative aspiration a 3ml test dose was given, 1.5% lidocaine with epinephrine. No test dose reaction. Dressing with large Tegaderm and medipore tape. Plan to order 0.125% bupivicaine + 2mcg/ml fentanyl solution to run at 7ml/hr for post-op pain control. Patient may have hydromorphone 0.2/6 standard dosing for breakthrough pain. No complications during epidural placement.
[2018-11-17] MEDS: DEXTROSE 5%-0.45% NS 1,000 ML 75 ML IV (14:52)
--- NOTE | 2018-11-17 14:53 | CM.DANOTE ---
Addendum entered by Sandra Ramos 11/19/18 15:35: Patient reports that she does reside with [facility] ph# [phone]. Original Note: DCP/Assessment: Reviewed chart. Patient is a 78yr old female admitted to [facility] with abdominal pain. PCP is Dr. Daysi Baltazar. Primary payor is 1)Medicare 2)[place]. Attempted to meet patient today. Unfortunately resting comfortably after surgery in room# 106. Spoke with RN whom reports patient currently with epidural. Met with patient's friend/significant other [facility] ph# [phone] at bedside. He reports that he and patient are very good friends. Per [facility], patient resides alone, completely I in ADL's. At this time d/c needs unknown? Name/number of CM team left on whiteboard plan to follow up when patient awake. P: CM team to follow closely for d/c planning needs. HUSSEIN Albert Discharge Planning/Care Management CM Discharge Assessment Start: 11/17/18 14:51 Freq: Status: Active Protocol: Document 11/17/18 14:51 KJS (Rec: 11/17/18 14:53 KJS [id number]) Discharge Planning Assessment Assigned Cyber Threat Analyst HUSSEIN Albert Contact Information Nile Alena (daughter) [phone] Advance Directives? No Advance Directives on File No History Provided By Patient Significant Other Prior Living Arrangements House Household Members none Type of transporation used prior to Drives own vehicle admit Independent with ADL's Yes Is patient alert and oriented? Yes Caregiver for Another No Comment Pending outcome of hospitalization. Discharge Plan Home Transportation Arrangement Family/friend to provide transport. Whiteboard Updated in Patient Room with Yes name and ext. # of Cyber Threat Analyst Review Status In Process Next Review Type Continued Stay Review
[2018-11-17] MEDS: FENT 2MCG/BUPIV 0.125% EPI 2 MCG/100 ML PLAST..BAG 7 MCG EPIDURAL (14:54)
[2018-11-17] MEDS: ACETAMINOPHEN 325 MG TABLET 650 MG PO (20:05)
[2018-11-18] VITALS (10 sets, daily range): BP systolic 111–145; BP diastolic 55–79; PULSE 71–82; RESP 15–18; TEMP 36.8–37.3; O2SAT 91–96
[2018-11-18] MEDS: FENT 2MCG/BUPIV 0.125% EPI 2 MCG/100 ML PLAST..BAG 7 MCG EPIDURAL ×2 (00:01→13:13)
[2018-11-18] MEDS: DEXTROSE 5%-0.45% NS 1,000 ML 75 ML IV ×2 (04:15→17:54)
[2018-11-18 05:18] LABS: Add Manual Diff / Slide Review NO; Basophils Absolute Auto 0 /uL (0-100); Basophils Percent Auto 0.1 % (0-2); Eosinophils Absolute Auto 0 /uL (0-450); Eosinophils Percent Auto 0.1 % (2-4); Hematocrit 37.5 % (36-46); Hemoglobin 12.5 g/dL (12.0-16.0); Lymphocytes Absolute Auto 800 /uL (1100-4500); Lymphocytes Percent Auto 11.5 % (25-40); Mean Corpuscular HGB Conc 33.2 % (30-36); Mean Corpuscular Hemoglobin 31.6 PG (26-34); Mean Corpuscular Volume 95.3 fL (80-100); Monocytes Absolute Auto 700 /uL (0-900); Monocytes Percent Auto 10.6 % (3-14); Neutrophils Absolute Auto 5200 /uL (1500-7000); Neutrophils Percent Auto 77.7 % (50-75); Platelet Count 151 X10^3/uL (150-400); Red Blood Cell Count 3.94 X10^6/uL (4.0-5.2); Red Cell Distribution Width 13.3 % (11.6-14.8); White Blood Cell Count 6.7 X10^3/uL (4.5-11.0)
[2018-11-18 06:25] LABS: BUN Creatinine Ratio 17.1 (6-22); Blood Urea Nitrogen 12 mg/dL (7-17); Calcium 8.7 mg/dL (8.4-10.2); Carbon Dioxide 27 mmol/L (22-32); Chloride 104 mmol/L (98-107); Estimated Glomerular Filt Rate > 60.0 mL/min (>60); Glucose 116 mg/dL (80-110); HEMOLYSIS 41 (0-50); Potassium 4.2 mmol/L (3.4-5.1); Sodium 135 mmol/L (137-145)
[2018-11-18 07:56] LABS: Magnesium 2.1 mg/dL (1.6-2.3)
--- NOTE | 2018-11-18 08:09 | P.PN_ITS ---
Subjective Date Patient Seen: 11/18/18 Time Patient Seen: 08:05 Interval history: Feeling well, no pain at all Not yet hungery, tolerating clears No flatus or BM In ICU for epidural Exam Vital Signs (past 8 hours): - 11/18/18 03:35 11/18/18 03:59 Temperature 98.4 F Pulse Rate 76 Respiratory Rate 18 Blood Pressure 121/79 Pulse Oximetry 92 92 Oxygen Delivery Method Room Air Oxygen Flow Rate 0 Narrative Exam Narrative: NAD, appears comfortable breathing easily on RA RRR strong radial pulse Abd - moderately distended, + tympanitic, dressings dry, minimally tender periphery warm Objective Labs Result Diagrams: 11/18/18 04:55 11/18/18 04:55 Labs: Laboratory Results - last 24 hr 11/17/18 11/18/18 11/18/18 11:15 04:55 04:55 WBC 6.7 RBC 3.94 L Hgb 12.5 Hct 37.5 MCV 95.3 MCH 31.6 MCHC 33.2 RDW 13.3 Plt Count 151 Neut % (Auto) 77.7 H Lymph % (Auto) 11.5 L [place] % (Auto) 10.6 Eos % (Auto) 0.1 L Baso % (Auto) 0.1 Neut # (Auto) 5200 Lymph # (Auto) 800 L [place] # (Auto) 700 Eos # (Auto) 0 Baso # (Auto) 0 Sodium 135 L Potassium 4.2 Chloride 104 Carbon Dioxide 27 BUN 12 Creatinine 0.70 Estimated GFR > 60.0 BUN/Creatinine Ratio 17.1 Glucose 116 H Calcium 8.7 Magnesium Nasal Screen MRSA (PCR) Negative for mrsa 11/18/18 04:55 WBC RBC Hgb Hct MCV MCH MCHC RDW Plt Count Neut % (Auto) Lymph % (Auto) [place] % (Auto) Eos % (Auto) Baso % (Auto) Neut # (Auto) Lymph # (Auto) [place] # (Auto) Eos # (Auto) Baso # (Auto) Sodium Potassium Chloride Carbon Dioxide BUN Creatinine Estimated GFR BUN/Creatinine Ratio Glucose Calcium Magnesium 2.1 Nasal Screen MRSA (PCR) Assessment & Plan Assessment & Plan narrative: 78 yo woman POD1 s/p exlap and ALDEN of single adhesive band for closed loop obstruction with large amount of compromised bowel - found to be viable after lysis. No resection. Now well with nml WBC. Has expected ileus. Plan: Pain control v effective with epidural - will continue today, APAP, gabapentin No further abx Ambulate Up in chair DVT proph switched to heparin SQ to facilitate epidural removal in day or two. Will keep mag above 2, K above 4
[2018-11-18] MEDS: POLYETHYLENE GLYCOL 3350 17 GM POWD.PACK PO ×2 (10:08→22:19)
--- NOTE | 2018-11-18 10:59 | PM.PN.1 ---
Subjective Date Patient Seen: 11/18/18 Interval history: Greta Hernandez is a 78-year-old female with a past medical history significant for hyperlipidemia who presented with abrupt onset epigastric pain and was found to have strangulated bowel now status post lysis of adhesion. The patient is resting in bed comfortably. She reports mild nausea this morning that is now resolved. She is advancing diet as tolerated. She has not had a bowel movement since her surgery but is passing flatus. She denies headache, shortness of breath, chest pain, abdominal pain, nausea, vomiting, fever, chills, diarrhea or constipation. She is voiding via burger catheter. She is in bed due to epidural in place. Exam Vital Signs (past 8 hours): - 11/18/18 03:35 11/18/18 03:59 11/18/18 08:00 Temperature 98.4 F 98.5 F Pulse Rate 76 81 Respiratory Rate 18 16 Blood Pressure 121/79 117/66 Pulse Oximetry 92 92 91 11/18/18 08:55 Temperature Pulse Rate Respiratory Rate Blood Pressure Pulse Oximetry 96 Oxygen Delivery Method Room Air Oxygen Flow Rate 0 Narrative Exam Narrative: General: Elderly female lying in bed and in no acute distress, appears comfortable, well-developed, well-nourished, appropriately interactive. HEENT: Normocephalic, atraumatic. External ears without defect. Pupils equal, round, and reactive to light. Anicteric sclerae, moist conjunctivae, and no lid lag. Neck: Supple with full range of motion. No lymphadenopathy or thyromegaly. Cardiovascular: Regular rate and rhythm without murmurs, rubs, or gallops appreciated Pulmonary: Clear to auscultation bilaterally without crackles, wheezes, or rhonchi. Normal respiratory effort with no use of accessory muscles. Abdomen: Soft, hypoactive bowel sounds, nontender, nondistended. Large abdominal dressing in place C/D/I. Extremities: No clubbing, cyanosis, or edema. Skin: Normal temperature, turgor, and texture; no rash, ulcers, or subcutaneous nodules appreciated. Epidural in place posterior spine. Neurological: Cranial nerves grossly intact. Psychiatric: Normal mood and affect. Alert and oriented to person, place, and time. Objective Labs Result Diagrams: 11/18/18 04:55 11/18/18 04:55 Labs: Laboratory Results - last 24 hr 11/17/18 11/18/18 11/18/18 11:15 04:55 04:55 WBC 6.7 RBC 3.94 L Hgb 12.5 Hct 37.5 MCV 95.3 MCH 31.6 MCHC 33.2 RDW 13.3 Plt Count 151 Neut % (Auto) 77.7 H Lymph % (Auto) 11.5 L [place] % (Auto) 10.6 Eos % (Auto) 0.1 L Baso % (Auto) 0.1 Neut # (Auto) 5200 Lymph # (Auto) 800 L [place] # (Auto) 700 Eos # (Auto) 0 Baso # (Auto) 0 Sodium 135 L Potassium 4.2 Chloride 104 Carbon Dioxide 27 BUN 12 Creatinine 0.70 Estimated GFR > 60.0 BUN/Creatinine Ratio 17.1 Glucose 116 H Calcium 8.7 Magnesium Nasal Screen MRSA (PCR) Negative for mrsa 11/18/18 04:55 WBC RBC Hgb Hct MCV MCH MCHC RDW Plt Count Neut % (Auto) Lymph % (Auto) [place] % (Auto) Eos % (Auto) Baso % (Auto) Neut # (Auto) Lymph # (Auto) [place] # (Auto) Eos # (Auto) Baso # (Auto) Sodium Potassium Chloride Carbon Dioxide BUN Creatinine Estimated GFR BUN/Creatinine Ratio Glucose Calcium Magnesium 2.1 Nasal Screen MRSA (PCR) Assessment & Plan Assessment & Plan narrative: Greta Hernandez is a 78-year-old female with a past medical history significant for hyperlipidemia who presented with abrupt onset epigastric pain and was found to have strangulated small bowel now status post lysis of adhesion. 1. Small bowel obstruction, status post lysis of adhesions, present on admission. Resolved. -Patient presented with abrupt onset epigastric abdominal pain with nausea and vomiting. -Abdominal ultrasound demonstrated normal gallbladder and liver. -Pancreatitis ruled out with normal appearance of pancreas on CT abdomen and pelvis with contrast and normal lipase. -Initial CT abdomen and pelvis with contrast demonstrated ileus. Repeat CT abdomen and pelvis demonstrated close loop small-bowel obstruction with possible ischemic changes. -General surgery was consulted and took the patient emergently to the OR and performed exploratory laparotomy with lysis of adhesions and resolution of small-bowel obstruction/ischemic small bowel. Continue postoperative in pain management per surgery. 2. Right pleural effusion and atelectasis, present on admission. Stable. -Likely reactive and related to the abdominal condition. -No signs of pneumonia. White blood count is normal at 9.5. 3. Acute hyperglycemia, likely reactive to SBO, present on admission. -Blood glucose elevated up to 150. Continue to monitor closely postoperatively. 4. Hyperlipidemia, chronic, present on admission. Stable. -Held pravastatin until diet is advanced and then may be restarted. Discussed patient with General surgery. Patient requiring little medical management and will sign off at this time. Please feel free to consult us if any further needs arise.
[2018-11-18] MEDS: HEPARIN 5,000 UNIT/ML VIAL 5000 UNIT SUBCUT ×2 (14:35→22:19)
[2018-11-18] MEDS: PRAVASTATIN 20 MG TABLET 40 MG PO (22:19)
--- NOTE | 2018-11-18 23:51 | PC.NURSE ---
shaun note up ambulating independently. Denies pain. Good sensation to legs.
[2018-11-19] VITALS (11 sets, daily range): BP systolic 130–157; BP diastolic 56–84; PULSE 76–82; RESP 15–18; TEMP 36.4–37.3; O2SAT 90–98
[2018-11-19] MEDS: FENT 2MCG/ML BUPIV 0.125% EPI 200 MCG/100 ML PLAST..BAG 7 MCG EPIDURAL (02:02)
[2018-11-19 05:58] LABS: BUN Creatinine Ratio 16.7 (6-22); Blood Urea Nitrogen 10 mg/dL (7-17); Calcium 8.2 mg/dL (8.4-10.2); Carbon Dioxide 30 mmol/L (22-32); Chloride 104 mmol/L (98-107); Estimated Glomerular Filt Rate > 60.0 mL/min (>60); Glucose 117 mg/dL (80-110); HEMOLYSIS < 15 (0-50); Potassium 3.4 mmol/L (3.4-5.1); Sodium 137 mmol/L (137-145)
[2018-11-19] MEDS: DEXTROSE 5%-0.45% NS 1,000 ML 75 ML IV (07:39)
[2018-11-19] MEDS: POLYETHYLENE GLYCOL 3350 17 GM POWD.PACK PO ×2 (07:41→21:21)
--- NOTE | 2018-11-19 08:51 | PC.NURSE ---
Addendum entered by Mine Carrera R.N. 11/19/18 15:44: Received this patient into room 210 from ICU. Report received from EGG BUYER Michael. Patient resting in bed, IVF per orders. Agrees to call with needs/concerns. Light in reach. Addendum entered by Michael Badillo R.N. 11/19/18 14:54: Pt transferred to acute care room 210 via w/c with all belongings. Report given to JAMAAL Blount. Pt states her s/o is on his way in and to direct him to 210 upon arrival. Declines any other family notification of room change. Addendum entered by Michael Badillo R.N. 11/19/18 09:37: Dr. Sherman rounded 0930. Clarification requested for heparin dosing with potential to pull epidural today. Reported 0600 heparin dosing held today. Reported next dose due at 1400. Dr. Sherman states ok to give heparin 5000 units sub cutaneously [address] removal. Dr. Sherman removed abd dsg and instructed to leave MOLDING FITTER/ok to shower tomorrow. Plan to continue clear liquid diet and potentially advance later on today. Original Note: Spoke with Dr. Chris via telephone. Discussed assessment findings- pt denies pain, SBA for mobility, not requiring PRN meds for pain, pt hopeful to have epidural removed today. TORB to stop epidural infusion, monitor pain level, and remove epidural at 1300 if pain is well controlled or restart epidural at current ordered dose/rate for uncontrolled pain. Updated pt on plan of care and stopped epidural infusion at 0850. Educated pt to pain scale/pain med regimen. Instructed pt to notify for increased pain level.
[2018-11-19] MEDS: GABAPENTIN 300 MG CAPSULE PO ×2 (09:34→21:19)
[2018-11-19] MEDS: METHOCARBAMOL 500 MG TABLET 750 MG PO ×2 (09:35→12:53)
[2018-11-19] MEDS: ACETAMINOPHEN 325 MG TABLET 650 MG PO ×2 (10:11→14:35)
[2018-11-19] MEDS: OXYCODONE IR 5 MG TABLET PO ×3 (10:58→21:19)
[2018-11-19] MEDS: POTASSIUM CHLORIDE 20 MEQ TAB 40 MEQ PO (12:52)
[2018-11-19] MEDS: HEPARIN 5,000 UNIT/ML VIAL 5000 UNIT SUBCUT ×2 (14:33→21:41)
--- NOTE | 2018-11-19 15:30 | CM.DPC ---
DCP/continued: Reviewed chart. Patient had epidural removed today and moved to room# 210. Met with patient explained CM/SW role. Patient much more alert today. First time LEAD PROJECT MANAGER saw patient it was day of surgery. Patient reports that she plans to d/c home when medically stable. Patient does report that Liban lives with her in [place]. He is retired physician. Patient feels that she will be in very capable hands. Patient has not been out of bed much due to epidural/surgery. Might be helpful to obtain PT evaluation prior to d/c to determine if there are any needs. P: CM team to follow closely. Recommend PT evaluation if patient not up on her own. Prior to admit patient was I in ADL's. HUSSEIN Albert
[2018-11-19] MEDS: OXYCODONE IR 5 MG TABLET 10 MG PO ×2 (15:38→18:13)
--- NOTE | 2018-11-19 19:55 | PC.NURSE ---
Addendum entered by Xiomy Mendoza R.N. 11/19/18 21:58: 2045- New orders from Dr Wilburn, oxycodone 5mg PO Q-2hr PRN, DC'd oxycodone 5mg Q-3hr PRN. Pt reports nausea, 10mg oxy too much. Ambulated in hallway. Original Note: Pt A/O x4, 92% RA, LS clear, denies SOB. Using I.S. to 1999. Midline incision well approximated with korey, no drainage noted, no S/SS infection, afebrile, 98.3. BT+, flatus+, mild distention, soft, tender. Encouraged to ambulate, but has not yet. tolerating fulls diet. LAC D5 1/2 NS @ 25. SBA FWW to BRP. Hx HTN. percolone 5-10mg for pain. Pt has refused all medications that are not perscribed by PCP; ie fish oil, melatonin... Bed alarm on for safety.
--- NOTE | 2018-11-19 20:07 | PM.PN.1 ---
Subjective Date Patient Seen: 11/19/18 Time Patient Seen: 09:00 Interval history: Well today Passing flatus, tolerating clears NO nausea epidural removed, transfered from ICU Exam Vital Signs (past 8 hours): - 11/19/18 12:27 11/19/18 14:51 11/19/18 15:51 Temperature 99.1 F 98.3 F Pulse Rate 80 78 78 Respiratory Rate 17 18 18 Blood Pressure 139/66 145/78 H 145/78 H Pulse Oximetry 92 91 91 11/19/18 16:00 Temperature Pulse Rate Respiratory Rate Blood Pressure Pulse Oximetry 92 Oxygen Delivery Method Room Air Oxygen Flow Rate 0 Narrative Exam Narrative: well breathing comfortably RRR abd soft minimally tender Wounds cdi periphery warm Objective Labs Result Diagrams: 11/18/18 04:55 11/19/18 04:59 Labs: Laboratory Results - last 24 hr 11/19/18 04:59 Sodium 137 Potassium 3.4 Chloride 104 Carbon Dioxide 30 BUN 10 Creatinine 0.60 Estimated GFR > 60.0 BUN/Creatinine Ratio 16.7 Glucose 117 H Calcium 8.2 L Magnesium 2.0 Assessment & Plan Assessment & Plan narrative: Assessment & Plan narrative: 78 yo woman POD2 s/p exlap and ALDEN of single adhesive band for closed loop obstruction with large amount of compromised bowel - found to be viable after lysis. No resection. Now recovering from expected ileus Plan: APAP, gabapentin, oxy No further abx Ambulate DVT proph heparin Awaiting return of bowel function
[2018-11-19] MEDS: PRAVASTATIN 20 MG TABLET 40 MG PO (21:22)
[2018-11-19] MEDS: ONDANSETRON 4 MG/2 ML INJ IV (21:36)
[2018-11-20] VITALS (7 sets, daily range): BP systolic 142–156; BP diastolic 70–87; PULSE 76–91; RESP 15–18; TEMP 36.3–37.4; O2SAT 91–95
--- NOTE | 2018-11-20 02:29 | PC.NURSE ---
Addendum entered and electronically signed by Nataly Hess R.N. 11/20/18 06:37: Pt feeling full, passing flatus, but no BM. Gave Pt GI coctail at 0600, Pt is requesting that we talk to the doctor today about the possibility for a suppository, Ibuprofen and shower. Original Note: Pt is AxOx3, VSS, except some low O2 in the shaun while sleeping, pt has been 92% w/ continual pulse ox on room air, lung sounds are clear bilaterally. Pt has soft, tender but distended abdomen. Midline incision intact w/ korey open to air, no signs of infection. Bowel tones positive in all quadrants, CMS intact. Pt is wearing SCD's.
[2018-11-20] MEDS: ACETAMINOPHEN 325 MG TABLET 650 MG PO (03:16)
[2018-11-20] MEDS: HEPARIN 5,000 UNIT/ML VIAL 5000 UNIT SUBCUT ×3 (05:38→20:42)
[2018-11-20 05:45] LABS: Blood Urea Nitrogen 6 mg/dL (7-17); Calcium 9.1 mg/dL (8.4-10.2); Carbon Dioxide 31 mmol/L (22-32); Chloride 103 mmol/L (98-107); Estimated Glomerular Filt Rate > 60.0 mL/min (>60); Glucose 111 mg/dL (80-110); HEMOLYSIS < 15 (0-50); Potassium 3.9 mmol/L (3.4-5.1); Sodium 136 mmol/L (137-145)
[2018-11-20] MEDS: POTASSIUM CHLORIDE 20 MEQ/15 ML UDC PO (09:02)
[2018-11-20] MEDS: GABAPENTIN 300 MG CAPSULE PO ×2 (09:03→20:41)
[2018-11-20] MEDS: METHOCARBAMOL 500 MG TABLET 750 MG PO ×4 (09:04→20:42)
[2018-11-20] MEDS: CELECOXIB 100 MG CAPSULE PO ×2 (09:16→20:41)
--- NOTE | 2018-11-20 11:26 | PC.NURSE ---
Addendum entered by Yuni Barnes R.N. 11/20/18 14:40: Pt given a suppository. She has not had a bowel movement yet. Pt showering now. Voices no complaints of pain. Original Note: Pts incision wnl and open to air. No redness noted around incision. Up ambulating in the halls several times this morning. BT+x4. Will give patient a suppository at her request. States that she did not eat much at breakfast. Pt is drinking some fluids, visiting with friend now.
[2018-11-20] MEDS: BISACODYL 10 MG SUPP PR (13:49)
--- NOTE | 2018-11-20 18:00 | PC.NURSE ---
Pt reports comfortable, midline incision SIERRA, well approximated with korey, no drainage noted, nos/ss infection noted, afebrile, 97.3. BT+, mild distention, soft, and tender, denies nausea. LAC D5 1/2 NS @ 25. 1PA FWW to ambulate in hallways and to BRP. 95%RA, LS clear denies SOB. Bed alarm on for safety.
[2018-11-20] MEDS: PRAVASTATIN 20 MG TABLET 40 MG PO (20:42)
[2018-11-21] VITALS (7 sets, daily range): BP systolic 128–151; BP diastolic 72–97; PULSE 78–94; RESP 16–18; TEMP 36.6–36.9; O2SAT 93–97
[2018-11-21] MEDS: PANTOPRAZOLE 40 MG VIAL IV (00:32)
[2018-11-21] MEDS: HEPARIN 5,000 UNIT/ML VIAL 5000 UNIT SUBCUT (06:17)
[2018-11-21] MEDS: GABAPENTIN 300 MG CAPSULE PO (09:07)
[2018-11-21] MEDS: METHOCARBAMOL 500 MG TABLET 750 MG PO ×3 (09:07→16:37)
[2018-11-21] MEDS: POLYETHYLENE GLYCOL 3350 17 GM POWD.PACK PO (09:07)
[2018-11-21] MEDS: CELECOXIB 100 MG CAPSULE PO (09:07)
--- NOTE | 2018-11-21 17:21 | PC.NURSE ---
1700-Patient is very unhappy at having to wait so long to be discharged. Patient is requesting that she be allowed to leave without the DrSuri discharge. Dr. Cowan is in procedure. The PACU nurse gave a message to him regarding the patient stating that she will leave AMA. Patient advised that leaving without official discharge can cause insurance problems. Patient verbalized understanding.
--- NOTE | 2018-11-21 17:32 | P.DS_ITS ---
History of Present Illness Date Patient Seen: 11/21/18 Time Patient Seen: 17:32 Chief complaint: abdominal pain Narrative: 78 yo woman presented with obstruction and abdominal pain. She was f ound to have large distended bowel and taken to the OR where a single adhesive band was lysed. the bowel was viable and no SBR occured. She went on to develop a somewhat prolonged ileus. This eventually resolved and pt was able to discharged home without pain, mobilizing well, and tolerating a regular diet. Discharge Providers Date of admission: 11/16/18 10:03 Discharge Date: 11/21/18 Primary care physician: Daysi Baltazar MD Consults: 11/17/18 08:17 Consult to General Surgery Routine Comment: Consulting Provider: Arpit Richmond Reason for consultation: Closed Loop Obstruction Has provider been notified: Yes 11/17/18 11:09 Consult to Discharge Planning Routine Comment: Discharge provider: Coleman Sherman Summary Discharge Diagnosis: Small bowel obstruction from adhessive disease Hospital Course: As above. Status at Discharge Cognitive/behavioral status at discharge: oriented Functional status at discharge: independent ambulation Overall status at discharge: patient is back to baseline Time Spent with Patient Less than 30 minutes Exam Vital Signs (past 8 hours): - 11/21/18 09:40 11/21/18 11:47 11/21/18 15:00 Temperature 98.4 F 98.0 F Pulse Rate 89 94 H Respiratory Rate 18 17 Blood Pressure 128/91 H 143/97 H Pulse Oximetry 94 95 94 11/21/18 16:00 Temperature Pulse Rate Respiratory Rate Blood Pressure Pulse Oximetry 93 Oxygen Delivery Method Room Air Oxygen Flow Rate 0 Const General: cooperative and healthy appearing Nutritional Appearance: well nourished Other: Well appering, abdomen soft, minimally tender, wound CDI Objective Labs Result Diagrams: 11/18/18 04:55 11/20/18 05:28 Discharge Plan Discharge Plan Patient Disposition: Home Discharge Med Rec/Prescriptions Prescriptions: New oxycodone 5 mg Tablet 5 mg PO .every 4hrs PRN (Reason: Pain, Moderate (4-6)) Qty: 10 RF: 0 acetaminophen 650 mg/20.3 mL solution 650 mg PO Q4HR PRN (Reason: As Needed For Fever/Mild Pain) Qty: 40 RF: 0 Continued alprazolam 0.5 MG tablet 0.5 mg PO PRN PRN (Reason: Sleep) Qty: 0 RF: 0 pravastatin 40 mg tablet 40 mg PO DAILY RF: 0 Follow up/Referrals: Coleman Sherman MD [Physician] - (call for follow up in 2 weeks) Daysi Baltazar MD [Primary Care Provider] - Provider Discharge Instructions Diet: Diet as Tolerated Activity: light activity for 1 week. No lifting over 15lbs for 6 weeks OK to shower, OK to bath in 2 weeks Skin/Wound/Dressing Care Report to your healthcare provider any signs of infection, such as:: chills, fever and increased pain Visit Report/Discharge Packet Stand Alone Forms: Surgery Discharge Discharge Data Primary Care Provider: Daysi Baltazar Attending Provider: Cloeman Sherman Admit Date/Time: 11/16/18 10:03 Discharges patient from system. Discharge Date/Time: 11/21/18 18:15
== END 2018-11-21 18:15 | disposition home or self-care (01) | DRG 336 ==
LOC: ED 09:35 → ICU 11-17 11:08 → AC 11-17 11:50
PROVIDERS: Emergency Medicine; Surgery; Admitting Provider Family Medicine; Emergency Provider Emergency Medicine; PCP Internal Medicine; Visit Provider Surgery
PROC: 0DN80ZZ Release Small Intestine, Open Approach (ICD-10-PCS; CPT 49000; principal; 2018-11-17 09:10)
DX: K56.50 Intestinal adhesions [bands], unspecified as to partial versus complete obstruction (principal); J90 Pleural effusion, not elsewhere classified; J98.11 Atelectasis; E78.5 Hyperlipidemia, unspecified; R73.9 Hyperglycemia, unspecified; K56.7 Ileus, unspecified
CPT/HCPCS: 36415; 36591; 44005; 74019; 74177; 76705; 80048; 80053; 81003; 83605; 83690; 83735; 85025; 87797; 93005; 96361; 96374; 96375; 96376; 99232; 99283; 99285; C9113; J0330; J1100; J1170; J1644; J1885; J2250; J2270; J2405; J2704; J3010; Q9967

== ENCOUNTER → 2018-12-13 12:10 | Outpatient (CLI) | payer MEDICARE, SELFPAY ==
[2018-11-16 10:39] VITALS: BMI 23.9
== END ==
PROVIDERS: PCP Internal Medicine; Visit Provider Internal Medicine Gastroenterology
DX: Z01.84 Encounter for antibody response examination (principal)
CPT/HCPCS: 86677

== ENCOUNTER → 2019-02-06 08:16 | Outpatient (CLI) | payer MEDICARE, SELFPAY ==
[2018-11-16 10:39] VITALS: BMI 23.9
[2019-02-06 09:56] LABS: Alanine Aminotransferase 16 IU/L (9-52); Aspartate Aminotransferase 20 IU/L (14-36); Cholesterol 195 mg/dL (140-199); HDL Cholesterol 48 mg/dL (40-60); LDL Cholesterol Calculated 125 mg/dL (<100); Triglycerides 109 mg/dL (35-150)
== END ==
PROVIDERS: PCP Internal Medicine; Visit Provider Internal Medicine
DX: E78.00 Pure hypercholesterolemia, unspecified (principal)
CPT/HCPCS: 36415; 80061; 84450; 84460

== ENCOUNTER → 2019-02-07 10:02 | Outpatient (CLI) | payer MEDICARE, OTHER, SELFPAY ==
[2018-11-16 10:39] VITALS: BMI 23.9
[2019-02-07 10:10] LABS: Bacteria Urine None Seen; RBC Urine None Seen (0-5/HPF); WBC Urine None Seen (0-5/HPF)
[2019-02-07 12:27] LABS: Appearance Urine UA CLEAR; Bilirubin Urine UA NEGATIVE (NEGATIVE); Color Urine UA YELLOW; Glucose Urine UA NEGATIVE (Negative); Ketones Urine UA NEGATIVE (NEGATIVE); Leukocyte Esterase Urine UA NEGATIVE (NEGATIVE); Nitrite Urine UA NEGATIVE (Negative); Occult Blood Urine UA NEGATIVE (Negative); Protein Urine UA NEGATIVE (Negative); Specific Gravity Urine UA 1.015 (1.000-1.035); Urobilinogen Urine UA 0.2 E.U./dL (0.2); pH Urine UA 6.5 (4.5-8.0)
[2019-02-07 12:30] LABS: Culture Indicated Urine Cult Not Indicated; Urine Comments Microscopic Normal
== END ==
PROVIDERS: PCP Internal Medicine; Visit Provider Internal Medicine
DX: R30.0 Dysuria (principal)
CPT/HCPCS: 81001; 87086

== ENCOUNTER → 2019-05-01 10:04 | Outpatient (CLI) | payer MEDICARE, OTHER, SELFPAY ==
[2018-11-16 10:39] VITALS: BMI 23.9
[2019-05-01 11:38] LABS: Alanine Aminotransferase 19 IU/L (<35); Aspartate Aminotransferase 20 IU/L (14-36); BUN Creatinine Ratio 23.8 (6-22); Blood Urea Nitrogen 19 mg/dL (7-17); Calcium 9.9 mg/dL (8.4-10.2); Carbon Dioxide 30 mmol/L (22-32); Chloride 104 mmol/L (98-107); Cholesterol 235 mg/dL (140-199); Estimated Glomerular Filt Rate > 60.0 mL/min (>60); Glucose 94 mg/dL (80-110); HDL Cholesterol 53 mg/dL (40-60); HEMOLYSIS < 15 (0-50); LDL Cholesterol Calculated 152 mg/dL (<100); Potassium 5.2 mmol/L (3.4-5.1); Sodium 138 mmol/L (137-145); Triglycerides 151 mg/dL (35-150)
== END ==
PROVIDERS: PCP Internal Medicine; Visit Provider Internal Medicine
DX: M81.0 Age-related osteoporosis without current pathological fracture (principal); E78.00 Pure hypercholesterolemia, unspecified
CPT/HCPCS: 36415; 80048; 80061; 82306; 84450; 84460

== ENCOUNTER 2019-07-18 09:48 | Day surgery (SDC) | payer MEDICARE, BC, SELFPAY ==
[2018-11-16 10:39] VITALS: BMI 23.9
[2019-07-18 10:00] VITALS: BP 126/72; PULSE 78; RESP 16; TEMP 36.2; O2SAT 97
[2019-07-18] MEDS: SODIUM CHLORIDE 0.9% 1,000 ML 200 ML IV (10:25)
--- NOTE | 2019-07-18 11:19 | PM.HP.1 ---
History of Present Illness History of Present Illness Date Patient Seen: 07/18/19 Time Patient Seen: 11:19 Chief complaint: [id number] Narrative: This is a 79-year-old woman with history of colon resection for diverticulitis, small bowel resection for obstruction 6 months ago, and no personal history of melena, hematochezia, or personal or family history of colon polyps or colon cancers. She has had chronic diarrhea since her small-bowel resection. And she feels that her abdominal core is weaker after having had her abdominal incision. She has also displeased with the appearance of the scar on her abdominal wall. Otherwise she is doing quite well. ROS: Positive for UTIs, and lower back pain, Thirteen system review is otherwise negative other than as mentioned below and in HPI. PE: GENERAL: Well groomed and cooperative. Appears stated age. Answers questions promptly and appropriately. Vital signs noted. HENT: Normocephalic, atraumatic. Hearing intact. Oral mucosa is pink and moist. EYES: Conjunctiva pink, sclera white, no periorbital swelling. CARDIOVASCULAR: Regular rate. No pedal edema. RESPIRATORY: Non-tachypneic, breathing comfortably on room air. GASTROINTESTINAL: Abdomen soft and non-distended, well-healed midline incisional scar GENITALURINARY: No flank tenderness. MUSCULOSKELETAL: Equal tone and mass bilaterally. SKIN: Warm, dry, soft, appropriate color for ethnicity. No other lesions, rashes, or wounds. NEURO: Alert and Oriented X 3. No gross sensory deficits, or cognitive issues. PSYCH: Appropriate affect and mood. Patient History Medical History H/O vaginal delivery (Acute) History of ectopic (Acute) Hyperlipidemia (Acute) Surgical History History of laparotomy (Acute) Status post surgery (09/28/08) Family & Social History Family History Father MVA (motor vehicle accident) Mother Congestive heart failure Social History: household members none Tobacco & Substance use: Smoking Status Never smoker alcohol intake never Substance Use Type does not use Meds Home Medications and Allergies Home Medications Medication Instructions Recorded Confirmed Type alprazolam 0.5 mg PO PRN PRN #0 07/14/16 06/24/19 History acetaminophen 650 mg PO Q4HR PRN #40 ml 11/21/18 06/24/19 Rx conjugated estrogens 0.625 mg 0.625 mg PO DAILY #8 tab 06/24/19 06/24/19 Rx tablet ranitidine HCl 150 mg capsule 150 mg PO DAILY 06/24/19 06/24/19 History atorvastatin 10 mg PO DAILY 07/18/19 07/18/19 History Allergies Allergy/AdvReac Type Severity Reaction Status Date / Time No Known Drug Allergies Allergy Verified 07/18/19 10:00 Exam Vital Signs (past 8 hours): - 07/18/19 10:00 Temperature 97.2 F L Pulse Rate 78 Respiratory Rate 16 Blood Pressure 126/72 Pulse Oximetry 97 Oxygen Delivery Method Room Air Assessment & Plan Assessment and plan (1) History of diverticulitis: Current visit: Yes Status: Acute (2) History of colon resection: Current visit: Yes Status: Acute (3) At average risk for colon cancer: Current visit: Yes Status: Acute Assessment & Plan narrative: Risks and benefits of screening colonoscopy and possible polypectomy were discussed with the patient including risk of bleeding, perforation, need for additional procedures, risks of anesthesia. The patient desires to proceed with the colonoscopy procedure. Time Spent With Patient Time with patient: 25 - 35 minutes Quality VTE Deep Vein Thrombosis/Pulmonary Embolism Present on Admission: No
--- NOTE | 2019-07-18 11:22 | PM.OP.ENDO ---
Operative Date/Time/Diagnoses Date of procedure: 07/18/19 Time of procedure: 11:38 Pre-op diagnosis: History of diverticulosis, history of colon resection for diverticulitis Post-op diagnosis: same Procedure & Clinicians Study performed: Screening colonoscopy Same procedure as scheduled: Yes Indications: History of diverticulosis, history of diverticulitis, no history of colon cancers or colon polyps Surgeon: Martina Davis Procedure Notes SCOAP/Timeout: Performed Procedure in detail: The patient was brought to the room and placed in left lateral decubitus position with all bony prominences padded. A time-out was performed and then the patient was given procedural sedation starting with 2 mg of Versed and [100] mcg of fentanyl. A total of 3 mg of Versed and 150 micro g of fentanyl were given for the entire procedure. Vitals were monitored throughout the procedure and remained stable. Once adequately sedated the procedure was begun. A rectal exam was performed revealing [no abnormalities]. The colonoscope was then introduced to the rectum and advanced to the cecum in the usual fashion. []The cecum was identified by the appendiceal orifice, the mucosal tri-fold, and the ileocecal valve. The scope was then retracted while rotating side to side and examining each mucosal fold. [] A few scattered diverticula were seen throughout the descending and sigmoid colon. The sigmoid anastomosis was widely patent without any stenosis. At the conclusion of the procedure retroflexion was performed and [small grade 1-2 internal hemorrhoids without stigmata of bleeding were seen]. The scope was then withdrawn from the rectum the procedure was concluded. The patient tolerated the procedure well and was transferred to the PACU in stable condition. Scope withdrawal time: 8 Sedation minutes: 14 Findings: diverticulosis Specimen(s): none sent Complications: none Impression: Low-grade diverticulosis Post-procedure Recommendations: Colonscopy in 10 years (If patient is healthy enough for colonoscopy at that time) and Other recommendation (Follow-up in the office to discuss other concerns such as abdominal wall discomfort, back pain, and core muscle laxity) Follow up: weeks Disposition: PACU
[2019-07-18] MEDS: MIDAZOLAM 5 MG/5 ML VIAL IV (11:40)
[2019-07-18] MEDS: fentaNYL 250 MCG/5 ML INJ IV (11:40)
[2019-07-18 11:45] VITALS: BP 104/55; PULSE 63; RESP 16; TEMP 36.6; O2SAT 97
[2019-07-18 11:50] VITALS: BP 106/53; PULSE 65; RESP 18; O2SAT 97
[2019-07-18 11:55] VITALS: BP 109/56; PULSE 63; RESP 18; O2SAT 98
[2019-07-18 12:00] VITALS: BP 140/72; PULSE 66; RESP 17; TEMP 36.6; O2SAT 97
[2019-07-18 12:50] VITALS: BP 136/70; PULSE 65; RESP 16; TEMP 36.2; O2SAT 99
== END 2019-07-18 12:50 | disposition home or self-care (01) ==
PROVIDERS: PCP Internal Medicine; Referring Provider Surgery; Visit Provider Surgery
PROC: 0DJD8ZZ Inspection of Lower Intestinal Tract, Via Natural or Artificial Opening Endoscopic (ICD-10-PCS; CPT 45378; principal; 2019-07-18 10:45)
DX: Z12.11 Encounter for screening for malignant neoplasm of colon (principal); Z90.49 Acquired absence of other specified parts of digestive tract; Z87.19 Personal history of other diseases of the digestive system; K57.30 Diverticulosis of large intestine without perforation or abscess without bleeding; K64.0 First degree hemorrhoids
CPT/HCPCS: G0105; 99152; J2250; J3010

== ENCOUNTER → 2019-08-25 09:12 | Outpatient (CLI) | payer MEDICARE, BC, SELFPAY ==
[2018-11-16 10:39] VITALS: BMI 23.9
[2019-08-25 10:02] LABS: Alanine Aminotransferase 21 IU/L (<35); Aspartate Aminotransferase 23 IU/L (14-36); Cholesterol 180 mg/dL (140-199); HDL Cholesterol 38 mg/dL (40-60); LDL Cholesterol Calculated 123 mg/dL (<100); Triglycerides 93 mg/dL (35-150)
== END ==
PROVIDERS: PCP Internal Medicine; Referring Provider Internal Medicine; Visit Provider Internal Medicine
DX: E78.00 Pure hypercholesterolemia, unspecified (principal)
CPT/HCPCS: 36415; 80061; 84450; 84460

== ENCOUNTER → 2019-11-20 11:47 | Outpatient (CLI) | payer MEDICARE, BC, SELFPAY ==
[2018-11-16 10:39] VITALS: BMI 23.9
--- NOTE | 2019-11-20 | DI.MRI.S_ITS ---
PROCEDURE: MR LUMBAR SPINE WO CON INDICATIONS: Spinal stenosis, lumbar region TECHNIQUE: Noncontrast sagittal T1 spin echo and T2 fast echo, sagittal STIR, axial T1 and T2 fast spin echo through the lumbar spine. In cases with scoliosis, additional coronal T2 fast spin echo may be performed. COMPARISON: [facility], MR, L-SPINE WITHOUT CONTRAST, 01/24/2012, 17:51. FINDINGS: Image quality: Excellent. Alignment and Curvature: Trace degenerative retrolisthesis of L2 on L3. Bone Marrow: Marrow is of normal overall signal. No acute vertebral body compression fractures. Chronic mild to moderate superior endplate L1 compression, not present in 2012. Spinal Cord: Conus medullaris terminates at the L1 level. Visualized cord demonstrates normal signal and size. Paraspinous Soft Tissues: No paravertebral masses. T11-T12: No canal stenosis or foraminal stenosis. T12-L1: No canal stenosis or foraminal stenosis. L1-L2: Minimal disc bulge. Mild facet hypertrophy. No canal stenosis. Mild bilateral foraminal stenosis. L2-L3: The development of [id number] disc height loss. Disc bulge and facet hypertrophy. Progression of canal stenosis, now moderate, underestimated on axial slice plane. Mild to moderate right foraminal stenosis. Moderate left foraminal stenosis with flattening deformity of the exiting left L2 nerve root. L3-L4: Disc bulge. Facet and ligament hypertrophy. Interval progression of canal stenosis, mild to moderate. Bilateral foraminal narrowing with mild flattening deformity in the exiting bilateral L3 nerve roots. L4-L5: Disc bulge, facet and ligament hypertrophy. Progression of canal stenosis, now moderate. Moderate bilateral foraminal narrowing with mild flattening deformity of the exiting bilateral L4 nerve roots. L5-S1: Disc bulge. Progression of facet and ligament hypertrophy. Mild canal stenosis. Mild bilateral foraminal stenosis. IMPRESSION: 1. Progressive multilevel canal stenosis, now moderate at L2-L3, [id number] at L3-L4, moderate at L4-L5, and mild at L5-S1. 2. Multilevel facet arthropathy. 3. Multilevel foraminal narrowing as described above. Dictated by: Lester Joshi M.D. on 11/20/2019 at 13:47 Approved by: Lester Joshi M.D. on 11/20/2019 at 13:59
== END ==
PROVIDERS: PCP Internal Medicine; Referring Provider Physical Medicine & Rehabilitation Pain Medicine; Visit Provider Physical Medicine & Rehabilitation Pain Medicine
DX: M48.062 Spinal stenosis, lumbar region with neurogenic claudication (principal); M48.07 Spinal stenosis, lumbosacral region; M47.816 Spondylosis without myelopathy or radiculopathy, lumbar region; M47.817 Spondylosis without myelopathy or radiculopathy, lumbosacral region
CPT/HCPCS: 72148

== ENCOUNTER 2020-03-02 17:55 | Emergency (ER) | payer MEDICARE, BC, SELFPAY ==
[2018-11-16 10:39] VITALS: BMI 23.9
[2020-03-02 18:00] VITALS: BP 175/77; PULSE 75; RESP 14; TEMP 36.6; O2SAT 98; BMI 23.1
--- NOTE | 2020-03-02 18:03 | DI.RAD.S_ITS ---
PROCEDURE: XR FINGER LT MIN 2V INDICATIONS: needle in finger TECHNIQUE: AP hand, 2 views of the left 2nd finger(s) acquired. COMPARISON: None. FINDINGS: Bones: No fractures or dislocations. No suspicious bony lesions. Soft tissues: No suspicious soft tissue calcifications. Metallic density medial imbedded in the soft tissues of the distal left finger. IMPRESSION: Metallic needle in the soft tissues of the distal left femur. No fracture identified. Dictated by: Chen Gibson MD, PhD on 03/02/2020 at 18:41 Approved by: Chen Gibson MD, PhD on 03/02/2020 at 18:42
--- NOTE | 2020-03-02 18:50 | ED.UPPEXIN ---
HPI - Extremity Injury (Upper) General Chief Complaint: Extremity Injury, Upper Stated Complaint: Needle Through Finger on Left Hand Time Seen by Provider: 03/02/20 18:05 Source: patient Mode of arrival: Ambulatory Limitations: no limitations History of Present Illness HPI narrative: 79F non smoker with non contributory medical history presents with friend and chief complaint of accidental puncture injury to left index finger. She was using a sewing machine when the needle punctured the finger nail of her left index finger and went through her finger. She denies other injury. She has pain and minimal bleeding. Her tetanus will need to be updated. She denies numbness, weakness, or tingling. complaint: injury to: left Onset (ago): minute(s) Other Extremity Injury: Left: fingers Other injuries: none Handedness: right Place: home Severity: moderate Relieving factors: rest Exacerbating factors: movement of extremity Context: other Associated symptoms: denies other symptoms Treatments prior to arrival: bandage Related Data Home Medications Medication Instructions Recorded Confirmed alprazolam 0.5 mg PO PRN PRN #0 07/14/16 08/15/19 ranitidine HCl 150 mg capsule 150 mg PO DAILY 06/24/19 08/15/19 atorvastatin 10 mg PO DAILY 07/18/19 08/15/19 Previous Rx's Medication Instructions Recorded acetaminophen 650 mg PO Q4HR PRN #40 ml 11/21/18 conjugated estrogens 0.625 mg 0.625 mg PO DAILY #8 tab 06/24/19 tablet cephalexin [Keflex] 500 mg PO QID 7 Days #28 cap 03/02/20 Allergies Allergy/AdvReac Type Severity Reaction Status Date / Time No Known Drug Allergies Allergy Verified 03/02/20 18:00 Review of Systems Constitutional Constitutional: Denies chills, Denies fatigue, Denies fever(s), Denies frequent falls, Denies lethargy and Denies weakness Eyes Eyes: Denies change in vision, Denies eye discharge, Denies irritation and Denies loss of vision ENT Ears, Nose, Mouth, and Throat: Denies change in voice, Denies dizziness, Denies neck pain, Denies sore throat and Denies throat swelling Cardiovascular Cardiovascular: Denies chest pain, Denies irregular heart rhythm, Denies lightheadedness, Denies palpitations, Denies dyspnea, Denies dyspnea on exertion and Denies orthopnea Respiratory Respiratory: Denies cough, Denies dyspnea, Denies dyspnea on exertion and Denies wheezing Gastrointestinal Gastrointestinal: Denies abdominal pain, Denies change in bowel habits, Denies diarrhea, Denies nausea and Denies vomiting Musculoskeletal Musculoskeletal: Denies neck pain and Denies numbness Integumentary/Breasts Skin/Breast: Denies pruritus, Denies erythema, Denies rash and Reports wounds Neurologic Neurologic: Denies behavioral changes, Denies confusion, Denies dizziness, Denies frequent falls, Denies loss of vision, Denies numbness and Denies weakness Psychiatric Psychiatric: Denies anxiety, Denies behavioral changes, Denies confusion, Denies depression, Denies homicidal ideation and Denies suicidal ideation Endocrine Endocrine: Denies fatigue, Denies flushing and Denies palpitations Hematologic/Lymphatic Hematologic/Lymphatic: Denies easy bruising Allergic/Immunologic Allergic/Immunologic: Denies urticaria, Denies throat swelling and Denies wheezing Patient History Medical History H/O vaginal delivery (Acute) History of ectopic (Acute) Hyperlipidemia (Acute) Surgical History History of laparotomy (Acute) Status post surgery (09/28/08) Family History Father MVA (motor vehicle accident) Mother Congestive heart failure Social History household members: none Smoking Status: Never smoker alcohol intake: never Smoking Status: Never smoker alcohol intake frequency: holidays/special occasions only Substance Use Type: does not use Exam Narrative Exam Narrative: GEN: AOx3 and in mild distress EYES: Pupils are equal, round, and reactive to light and accommodation. Extraoccular muscles are intact bilaterally. There is no subconjunctival hemorrhage or exudate. CHEST: Lungs are clear to auscultation bilaterally and free of wheezes, rales, or rhonchi. Heart rate is regular rhythm, there are no murmurs, clicks, rubs, or gallops. There is no chest wall tenderness. ABD: Abdomen is soft and nontender. There is no guarding or rebound. Bowel sounds are normal in all 4 quadrants. There is no mass or organomegaly. EXT: Sewing machine needle (with thread attached) punctured midline through finger nail of left index finger and out the other side. Minimal bleeding. Quite painful to palpate. SKIN: Warm, pink, and dry. No erythema or rash Initial Vital Signs Initial Vital Signs: Vital Signs Temperature 97.9 F 03/02/20 18:00 Pulse Rate 75 03/02/20 18:00 Respiratory Rate 14 03/02/20 18:00 Blood Pressure 175/77 H 03/02/20 18:00 Pulse Oximetry 98 03/02/20 18:00 Procedures Nerve Block Nerve Block 1: Time out performed: Yes Local Anesthetic: lidocaine 1% and with bicarb Amount of anesthesia used (mL): 4 Side: left Nerve Blocks: digital Procedure Successful: Yes Patient Tolerated Procedure: Well Complications: none Additional Comments: once adequate anesthesia needle grasped with pliers and removed easily, but required fair amount of force. Though Xray suggests no bony involvement, this would suggest otherwise. Course Orders Ordered: ED Orders 03/02/20 18:03 XR finger LT min 2V Stat Discontinued Medications Diphtheria/Tetanus/Acell Pertussis (Adacel) 0.5 ml IM .ONCE ONE Stop: 03/02/20 19:00 Last Admin: 03/02/20 19:20 Dose: 0.5 ml Documented by: CHAYITO Lidocaine/Sodium Bicarbonate (Buffered Lidocaine 10 Ml Syr) 10 ml INJ NOW ONE Stop: 03/02/20 19:00 Last Admin: 03/02/20 19:21 Dose: 10 ml Documented by: CHAYITO Consultations Consultation #1: call to discuss case with Dr. Riley (orthopedics) who agress with plan to soak in betadine, administer ABX, tube gauze and follow up with PCP. Vital Signs Vital signs: Vital Signs - 8 hr 03/02/20 18:00 03/02/20 20:12 Temperature 97.9 F Pulse Rate 75 66 Respiratory Rate 14 Blood Pressure 175/77 H 164/77 H Pulse Oximetry 98 97 MDM - Extremity Injury (Upper) Imaging Data Extremity x-ray #1: Radiologist's Impression: [address] [address] XRay Report Addendum Patient: Greta Hernandez LMR#: [id number] : 1940cct:[id number] Age/Sex: 79 / FDate of Service: 03/02/20 Loc: ED Accession Number: [id number] Procedure: XR finger LT min 2V Ordering Provider: Sara Ramos MD ADDENDUM CORRECTION Corrected on: 03/02/2020; PROCEDURE: XR FINGER LT MIN 2V INDICATIONS: needle in finger TECHNIQUE: AP hand, 2 views of the left 2nd finger(s) acquired. COMPARISON: None. FINDINGS: Bones: No fractures or dislocations. No suspicious bony lesions. Soft tissues: No suspicious soft tissue calcifications. Metallic density medial imbedded in the soft tissues of the distal left finger. IMPRESSION: Metallic needle in the soft tissues of the distal left 2nd finger. No fracture identified. Dictated by: Chen Gibson MD, PhD on 03/02/2020 at 18:41 Approved by: Chen Gibson MD, PhD on 03/02/2020 at 18:42 Dictated by: Chen Gibson MD, PhD on 03/02/2020 at 18:55 Approved by: Chen Gibson MD, PhD on 03/02/2020 at 18:55 MDM Narrative Medical decision making narrative: Patient given extensive return precautions, she understands and demonstrates this by repeating the instructions back. She has had all of her questions answered to her apparent satisfaction. Discharge Plan Departure Patient Disposition: Home Clinical Impression: Puncture wound of finger of left hand Qualifiers: Encounter type: initial encounter Qualified Code(s): S61.239A - Puncture wound without foreign body of unspecified finger without damage to nail, initial encounter Discharge Date/Time: 03/02/20 20:12 Instructions: DI for Puncture Wound Activity Restrictions/Additional Instructions: *You have been diagnosed with [foreign body status post removal with puncture through bone of the tip of your left index finger] *What to do: *Take medications as directed: Prescription was sent to [facility] at your request *Follow up with your primary care provider in 2-3 days, call for an appointment. Let them know you were seen in the Emergency Department and that we ask that you be seen in follow up *Return to ER if you should have any new, worsening or concerning symptoms, such as [increasing pain, swelling, numbness, purulence drainage or other bothersome symptoms] Prescriptions: New cephalexin [Keflex] 500 mg capsule 500 mg PO QID 7 Days Qty: 28 RF: 0 No Action alprazolam 0.5 MG tablet 0.5 mg PO PRN PRN (Reason: Sleep) Qty: 0 RF: 0 ranitidine HCl 150 mg capsule 150 mg PO DAILY RF: 0 Premarin 0.625 mg tablet 0.625 mg PO DAILY Qty: 8 RF: 6 atorvastatin 10 mg Tablet 10 mg PO DAILY RF: 0 acetaminophen 650 mg/20.3 mL solution 650 mg PO Q4HR PRN (Reason: As Needed For Fever/Mild Pain) Qty: 40 RF: 0 Referrals: Jose Francisco Dubon MD [Physician] - Isael Kay MD [Physician] - Daysi Baltazar MD [Primary Care Provider] -
[2020-03-02] MEDS: TET,DIPH,PERTUSS(ACELL),VAC/PF 0.5 ML SYRINGE IM (19:20)
[2020-03-02] MEDS: LIDO 1%/SOD BICARB 8.4% (10ML) 10 ML SYRINGE INJ (19:21)
--- NOTE | 2020-03-02 20:10 | PC.NURSE ---
Pt soaked in iodine water. then placed non adherent gauze with tube gauze.
[2020-03-02 20:12] VITALS: BP 164/77; PULSE 66; O2SAT 97
== END 2020-03-02 20:12 | disposition home or self-care (01) ==
PROVIDERS: Emergency Provider Emergency Medicine; PCP Internal Medicine
DX: S61.239A Puncture wound without foreign body of unspecified finger without damage to nail, initial encounter (principal); W26.8XXA Contact with other sharp object(s), not elsewhere classified, initial encounter; Z23 Encounter for immunization
CPT/HCPCS: 73140; 90471; 99283; 99284; 90715

== ENCOUNTER → 2020-03-26 09:08 | Outpatient (CLI) | payer MEDICARE, BC, SELFPAY ==
[2018-11-16 10:39] VITALS: BMI 23.9
[2020-03-26 10:18] LABS: Alanine Aminotransferase 24 IU/L (<35); Albumin 3.8 g/dL (3.5-5.0); Albumin Globulin Ratio 1.6 (1.0-2.8); Alkaline Phosphatase 70 U/L (38-126); Aspartate Aminotransferase 23 IU/L (14-36); BUN Creatinine Ratio 19.3 (6-22); Bilirubin Total 0.6 mg/dL (0.2-1.3); Blood Urea Nitrogen 17 mg/dL (7-17); Calcium 9.4 mg/dL (8.4-10.2); Carbon Dioxide 31 mmol/L (22-32); Chloride 105 mmol/L (98-107); Cholesterol 171 mg/dL (140-199); Estimated Glomerular Filt Rate > 60.0 mL/min (>60); Globulin 2.4 g/dL (1.7-4.1); Glucose 89 mg/dL (80-110); HDL Cholesterol 47 mg/dL (40-60); HEMOLYSIS < 15 (0-50); LDL Cholesterol Calculated 97 mg/dL (<100); Potassium 4.6 mmol/L (3.4-5.1); Sodium 139 mmol/L (137-145); Total Protein 6.2 g/dL (6.3-8.2); Triglycerides 137 mg/dL (35-150)
== END ==
PROVIDERS: PCP Internal Medicine; Referring Provider Internal Medicine; Visit Provider Internal Medicine
DX: E78.5 Hyperlipidemia, unspecified (principal)
CPT/HCPCS: 36415; 80053; 80061

== ENCOUNTER → 2020-05-24 17:04 | Outpatient (CLI) | payer MEDICARE, BC, SELFPAY ==
[2018-11-16 10:39] VITALS: BMI 23.9
--- NOTE | 2020-05-24 | DI.MG.S_ITS ---
BILATERAL DIGITAL SCREENING MAMMOGRAM 3D/2D WITH CAD: 05/24/2020 CLINICAL: Routine screening. Comparison is made to exams dated: 05/29/2018 mammogram, 05/01/2016 mammogram, and 12/08/2014 mammogram - [facility]. The tissue of both breasts is heterogeneously dense. This may lower the sensitivity of mammography. Current study was also evaluated with a Computer Aided Detection (CAD) system. No significant masses, calcifications, or other findings are seen in either breast. There has been no significant interval change. IMPRESSION: NEGATIVE There is no mammographic evidence of malignancy. A 1 year screening mammogram is recommended. This exam was interpreted at Station ID: [id number]. NOTE: For mammograms, a report in lay terms will be sent to the patient. Approximately 15% of breast malignancies will not be visualized mammographically. In the management of a palpable breast mass, a negative mammogram must not discourage biopsy of a clinically suspicious lesion. Electronically Signed By: Ilia bobby/rodrick:05/25/2020 08:23:50 letter sent: Normal Exam ACR BI-RADS Category 1: Negative [id number]
== END ==
PROVIDERS: PCP Internal Medicine; Referring Provider Internal Medicine; Visit Provider Internal Medicine
DX: Z12.31 Encounter for screening mammogram for malignant neoplasm of breast (principal)
CPT/HCPCS: 77063; 77067

== ENCOUNTER 2020-05-29 04:59 | Emergency (ER) | payer MEDICARE, BC, SELFPAY ==
[2018-11-16 10:39] VITALS: BMI 23.9
[2020-05-29] VITALS (9 sets, daily range): BP systolic 135–162; BP diastolic 70–81; PULSE 67–82; RESP 18; TEMP 36.9; O2SAT 91–97
--- NOTE | 2020-05-29 05:26 | DI.RAD.S_ITS ---
PROCEDURE: XR ABDOMEN MIN 2V INDICATIONS: abdomen pain, no bowel movement, history of obstruction TECHNIQUE: 2 views of the abdomen were acquired. COMPARISON: [facility], CT, CT ABDOMEN PELVIS W CON, 05/29/2020, 5:58. [facility], CR, XR ABDOMEN MIN 2V, 11/16/2018, 10:24. FINDINGS: Surgical changes and devices: Suture material in the pelvis likely due to rectosigmoid colon anastomosis. Bowel: No pneumoperitoneum. Scattered small bowel and colonic gas. No dilated loops of bowel identified. Stool burden appears to be within normal limits. Soft tissues: No masses; visualized solid organ contours appear normal in size. No suspicious abdominal calcifications. Bones: No suspicious bony abnormalities. Scoliosis. No pleural effusion. IMPRESSION: Nonobstructive bowel gas pattern. This report is concordant with the overnight preliminary interpretation. Dictated by: Maxx Camejo M.D. on 05/29/2020 at 7:14 Approved by: Maxx Camejo M.D. on 05/29/2020 at 7:17
--- NOTE | 2020-05-29 05:28 | ED.ABDPAIN ---
HPI - Abdominal Pain General Chief Complaint: Abdominal Pain Stated Complaint: Severe Left lower quadrant pain Time Seen by Provider: 05/29/20 05:00 Source: patient Mode of arrival: Ambulatory Limitations: no limitations History of Present Illness HPI narrative: 80-year-old female nonsmoker with history of insomnia, hyperlipidemia, prior episodes of diverticulitis and bowel obstruction presents with her significant other and a chief complaint of a severe left lower quadrant pain that woke her up this morning. She states that she has not had a bowel movement in the past few days but is still passing gas. She states that her pain is very intense and does not seem to have any obvious provocation, palliation or radiation. She denies any nausea or vomiting. She denies any dysuria, frequency or urgency. MD complaint: abdominal pain Related Data Home Medications Medication Instructions Recorded Confirmed OTC Acid Tractor Mechanic 1 tab PO BEDTIME 03/05/20 04/16/20 tramadol 50 mg tablet 50 mg PO DAILY PRN tab 03/05/20 04/16/20 Calicum 375mg 1 tab PO DAILY 04/16/20 cholecalciferol (vitamin D3) 25 25 mcg PO DAILY 04/16/20 04/16/20 mcg (1,000 unit) capsule magnesium 250 mg tablet 250 mg PO DAILY 04/16/20 04/16/20 Previous Rx's Medication Instructions Recorded alprazolam 0.25 mg tablet 0.25 mg PO BEDTIME #30 tab 04/12/20 atorvastatin 40 mg tablet 40 mg PO DAILY #90 tab 04/12/20 amoxicillin-pot clavulanate 1 tab PO BID #28 tab 05/29/20 [Augmentin] Allergies Allergy/AdvReac Type Severity Reaction Status Date / Time No Known Drug Allergies Allergy Verified 04/16/20 13:19 Review of Systems Constitutional Constitutional: Denies chills, Denies fatigue, Denies fever(s), Denies frequent falls, Denies lethargy and Denies weakness Eyes Eyes: Denies change in vision, Denies eye discharge, Denies irritation and Denies loss of vision ENT Ears, Nose, Mouth, and Throat: Denies change in voice, Denies dizziness, Denies neck pain, Denies sore throat and Denies throat swelling Cardiovascular Cardiovascular: Denies chest pain, Denies irregular heart rhythm, Denies lightheadedness, Denies palpitations, Denies dyspnea, Denies dyspnea on exertion and Denies orthopnea Respiratory Respiratory: Denies cough, Denies dyspnea, Denies dyspnea on exertion and Denies wheezing Gastrointestinal Gastrointestinal: Reports abdominal pain, Denies change in bowel habits, Reports constipation, Denies diarrhea, Denies nausea and Denies vomiting Musculoskeletal Musculoskeletal: Denies neck pain and Denies numbness Integumentary/Breasts Skin/Breast: Denies pruritus, Denies erythema, Denies rash and Denies wounds Neurologic Neurologic: Denies behavioral changes, Denies confusion, Denies dizziness, Denies frequent falls, Denies loss of vision, Denies numbness and Denies weakness Psychiatric Psychiatric: Denies anxiety, Denies behavioral changes, Denies confusion, Denies depression, Denies homicidal ideation and Denies suicidal ideation Endocrine Endocrine: Denies fatigue, Denies flushing and Denies palpitations Hematologic/Lymphatic Hematologic/Lymphatic: Denies easy bruising Allergic/Immunologic Allergic/Immunologic: Denies urticaria, Denies throat swelling and Denies wheezing Patient History Medical History (Updated 05/29/20 @ 07:17 by James Pruitt DO) Cataracts, bilateral (~2018) Cervical spine disease (~2018) Diverticular disease of colon H/O vaginal delivery Hearing loss (~2009) Hemorrhoid (~2009) Herpes (~1993) History of ectopic History of small bowel obstruction History of urinary incontinence (~2007) Hyperlipidemia Insomnia disorder Osteoporosis (~2007) Tinnitus (~1979) Vision disorder Surgical History Anesthesia History of colon resection (~2010) History of laparotomy Small bowel obstruction (~2018) Status post ectopic (~1966) Status post surgery (09/28/08) Family History Father MVA (motor vehicle accident) Mother Congestive heart failure Hyperlipidemia Grandfather History of heart disease Grandmother History of heart disease Hyperlipidemia Stroke Grandfather History of heart disease Grandmother History of heart disease Social History household members: none Smoking Status: Never smoker alcohol intake: never Smoking Status: Never smoker alcohol intake frequency: holidays/special occasions only Substance Use Type: does not use Exam Narrative Exam Narrative: GENERAL: [80] year old patient appears stated age. Well-nourished, well-developed patient, in mild distress. HEAD: Atraumatic. Normocephalic. EYES: Pupils equal round and reactive. Extraocular motions intact. No scleral icterus. No injection or drainage. ENT: Nose without bleeding, purulent drainage. Throat without erythema, tonsillar hypertrophy or exudate. Airway patent. NECK: Trachea midline. Non tender CARDIOVASCULAR: Regular rate and rhythm without murmurs, gallops, or rubs. RESPIRATORY: Clear to auscultation. Breath sounds equal bilaterally. No wheezes, rales, or rhonchi. GASTROINTESTINAL: Abdomen soft, non-tender, nondistended. Bowel sounds in all 4 quadrants. EXTREMITIES: No edema or joint tenderness. BACK: Nontender without deformity or crepitance. No flank tenderness. NEURO: AOx3. SKIN: No rash or erythema of visible areas Initial Vital Signs Initial Vital Signs: Vital Signs Temperature 98.5 F 05/29/20 05:05 Pulse Rate 82 05/29/20 05:05 Respiratory Rate 18 05/29/20 05:05 Blood Pressure 158/81 H 05/29/20 05:05 Pulse Oximetry 95 05/29/20 05:05 Course Orders Ordered: ED Orders 05/29/20 05:25 Complete Blood Count AUTO DIFF Stat Comprehensive Metabolic Panel Stat Lipase Stat UA Complete [Urinalysis and Microscopic] Stat 05/29/20 05:26 XR abdomen min 2V Stat 05/29/20 05:45 CT abdomen pelvis w con Stat Sodium Chloride (Normal Saline 0.9%) 1,000 mls @ 150 mls/hr IV CONT NAYANA Last Infusion: 05/29/20 06:34 Dose: 0 mls/hr Documented by: Admin: 05/29/20 05:38 Dose: 150 mls/hr Documented by: DEXTER Discontinued Medications Hydrocodone Bitart/Acetaminophen (Hydrocodone/Acet 5/325 Prepack) 1 bottle MISC SEEINSTR ONE Stop: 05/29/20 07:16 Hydromorphone HCl (Hydromorphone 0.5 Mg Inj) 0.25 mg IV NOW ONE Stop: 05/29/20 05:28 Last Admin: 05/29/20 05:38 Dose: 0.25 mg Documented by: DEXTER Vital Signs Vital signs: Vital Signs - 8 hr 05/29/20 05:05 05/29/20 05:06 05/29/20 05:27 Temperature 98.5 F Pulse Rate 82 76 73 Respiratory Rate 18 Blood Pressure 158/81 H 150/78 H Pulse Oximetry 95 95 97 05/29/20 05:30 05/29/20 05:51 05/29/20 06:05 Temperature Pulse Rate 74 74 77 Respiratory Rate Blood Pressure 135/76 162/70 H Pulse Oximetry 97 92 91 05/29/20 06:30 05/29/20 06:38 05/29/20 07:00 Temperature Pulse Rate 67 68 72 Respiratory Rate Blood Pressure 152/72 H Pulse Oximetry 96 97 97 MDM - Abdominal Pain Lab Data Result diagrams: 05/29/20 05:25 05/29/20 05:25 Labs: Lab Results 05/29/20 05/29/20 05/29/20 Range/Units 05:25 05:25 05:25 WBC 8.2 (4.5-11.0) X10^3/uL RBC 4.64 (4.0-5.2) X10^6/uL Hgb 14.3 (12.0-16.0) g/dL Hct 43.4 (36-46) % MCV 93.5 (80-100) fL MCH 30.9 (26-34) PG MCHC 33.1 (30-36) % RDW 13.7 (11.6-14.8) % Plt Count 164 (150-400) X10^3/uL Neut % (Auto) 76.0 H (50-75) % Lymph % (Auto) 14.6 L (25-40) % [place] % (Auto) 7.5 (3-14) % Eos % (Auto) 1.3 L (2-4) % Baso % (Auto) 0.6 (0-2) % Neut # (Auto) 6200 (1180-8123) /uL Lymph # (Auto) 1200 (5561-3538) /uL [place] # (Auto) 600 (0-900) /uL Eos # (Auto) 100 (0-450) /uL Baso # (Auto) 100 (0-100) /uL Sodium 138 (137-145) mmol/L Potassium 4.2 (3.4-5.1) mmol/L Chloride 103 (98-107) mmol/L Carbon Dioxide 33 H (22-32) mmol/L BUN 15 (7-17) mg/dL Creatinine 0.87 (0.52-1.04) mg/dL Estimated GFR > 60.0 (>60) mL/min BUN/Creatinine Ratio 17.2 (6-22) Glucose 106 (80-110) mg/dL Calcium 10.0 (8.4-10.2) mg/dL Total Bilirubin 0.5 (0.2-1.3) mg/dL AST 22 (14-36) IU/L ALT 19 (<35) IU/L Alkaline Phosphatase 79 (38-126) U/L Total Protein 7.0 (6.3-8.2) g/dL Albumin 4.1 (3.5-5.0) g/dL Globulin 2.9 (1.7-4.1) g/dL Albumin/Globulin Ratio 1.4 (1.0-2.8) Lipase 40 (23-300) U/L Urine Color Yellow Urine Appearance Cloudy Urine pH 7.5 (4.5-8.0) Ur Specific [place] 1.015 (1.000-1.035) Urine Protein Negative (Negative) Urine Glucose (UA) Negative (Negative) g/dL Urine Ketones Negative (NEGATIVE) Urine Occult Blood Trace-intact (Negative) Urine Nitrate Negative (Negative) Urine Bilirubin Negative (NEGATIVE) Urine Urobilinogen 0.2 (0.2) E.U./dL Ur Leukocyte Esterase Negative (NEGATIVE) Urine RBC 0-1/hpf (0-5/HPF) Urine WBC None seen (0-5/HPF) Amorphous Sediment 3+ Urine Bacteria Occasional (0-1) (None) Ur Culture Indicated? Cult not indicated Imaging Data Abdominal x-ray: Radiologist's Impression: No obstruction or perforation CT scan - abdomen/pelvis: Radiologist's Impression: Sigmoid colon wall thickening is probably due to diverticulitis No perforation or abscess Discharge Plan Departure Patient Disposition: Home Clinical Impression: Diverticulitis Instructions: DI for Diverticulitis Activity Restrictions/Additional Instructions: *You have been diagnosed with [early, mild diverticulitis] *What to do: *Take medications as directed *Follow up with your primary care provider in 2-3 days, call for an appointment. Let them know you were seen in the Emergency Department and that we ask that you be seen in follow up *Return to ER if you should have any new, worsening or concerning symptoms such as worsening pain, fever greater than 101 F or other bothersome symptoms Prescriptions: New amoxicillin-pot clavulanate [Augmentin] 875-125 mg tablet 1 tab PO BID Qty: 28 RF: 0 No Action alprazolam 0.25 mg tablet 0.25 mg PO BEDTIME Qty: 30 RF: 2 atorvastatin 40 mg tablet 40 mg PO DAILY Qty: 90 RF: 3 tramadol 50 mg tablet 50 mg PO DAILY PRNRF: 0 OTC Acid Tractor Mechanic 1 tab PO BEDTIME RF: 0 cholecalciferol (vitamin D3) 25 mcg (1,000 unit) capsule 25 mcg PO DAILY RF: 0 Calicum 375mg 1 tab PO DAILY RF: 0 magnesium 250 mg tablet 250 mg PO DAILY RF: 0 Referrals: Jose Francisco Dubon MD [Primary Care Provider] -
[2020-05-29 05:34] LABS: WBC Urine None Seen (0-5/HPF)
[2020-05-29 05:36] LABS: Bilirubin Urine UA NEGATIVE (NEGATIVE); Color Urine UA YELLOW; Glucose Urine UA NEGATIVE (Negative); Ketones Urine UA NEGATIVE (NEGATIVE); Leukocyte Esterase Urine UA NEGATIVE (NEGATIVE); Nitrite Urine UA NEGATIVE (Negative); Occult Blood Urine UA TRACE-INTACT (Negative); Protein Urine UA NEGATIVE (Negative); Specific Gravity Urine UA 1.015 (1.000-1.035); Urobilinogen Urine UA 0.2 E.U./dL (0.2)
[2020-05-29 05:37] LABS: Appearance Urine UA Cloudy; pH Urine UA 7.5 (4.5-8.0)
[2020-05-29 05:38] LABS: Add Manual Diff / Slide Review NO; Basophils Absolute Auto 100 /uL (0-100); Basophils Percent Auto 0.6 % (0-2); Eosinophils Absolute Auto 100 /uL (0-450); Eosinophils Percent Auto 1.3 % (2-4); Hematocrit 43.4 % (36-46); Hemoglobin 14.3 g/dL (12.0-16.0); Lymphocytes Absolute Auto 1200 /uL (1100-4500); Lymphocytes Percent Auto 14.6 % (25-40); Mean Corpuscular HGB Conc 33.1 % (30-36); Mean Corpuscular Hemoglobin 30.9 PG (26-34); Mean Corpuscular Volume 93.5 fL (80-100); Monocytes Absolute Auto 600 /uL (0-900); Monocytes Percent Auto 7.5 % (3-14); Neutrophils Absolute Auto 6200 /uL (1500-7000); Platelet Count 164 X10^3/uL (150-400); Red Blood Cell Count 4.64 X10^6/uL (4.0-5.2); Red Cell Distribution Width 13.7 % (11.6-14.8); White Blood Cell Count 8.2 X10^3/uL (4.5-11.0)
[2020-05-29] MEDS: SODIUM CHLORIDE 0.9% 1,000 ML 150 ML IV (05:38)
[2020-05-29] MEDS: HYDROMORPHONE 0.5 MG INJ 0.25 MG IV (05:38)
[2020-05-29 05:44] LABS: Alanine Aminotransferase 19 IU/L (<35); Albumin 4.1 g/dL (3.5-5.0); Albumin Globulin Ratio 1.4 (1.0-2.8); Alkaline Phosphatase 79 U/L (38-126); Aspartate Aminotransferase 22 IU/L (14-36); BUN Creatinine Ratio 17.2 (6-22); Bilirubin Total 0.5 mg/dL (0.2-1.3); Blood Urea Nitrogen 15 mg/dL (7-17); Carbon Dioxide 33 mmol/L (22-32); Chloride 103 mmol/L (98-107); Estimated Glomerular Filt Rate > 60.0 mL/min (>60); Globulin 2.9 g/dL (1.7-4.1); Glucose 106 mg/dL (80-110); HEMOLYSIS < 15 (0-50); Lipase 40 U/L (23-300); Potassium 4.2 mmol/L (3.4-5.1); Sodium 138 mmol/L (137-145)
--- NOTE | 2020-05-29 05:45 | DI.CT.S_ITS ---
PROCEDURE: CT ABDOMEN PELVIS W CON COMPARISON: [facility], CT, CT ABDOMEN PELVIS W CON, 11/17/2018, 7:48. INDICATIONS: severe left lower quadrant pain FINDINGS: Image quality: Excellent. Lung bases: Lung bases are clear. Heart size is normal. Solid organs: Liver: The liver has no mass or intrahepatic biliary ductal dilatation. The portal vein and hepatic veins are patent. Biliary: The gallbladder has no gallstones, pericholecystic fluid, gallbladder wall thickening, or surrounding inflammatory change. Pancreas: The pancreas has no mass or ductal dilatation. There is no surrounding inflammation. Spleen: Normal size. There are no masses. Adrenals: No hypertrophy or nodules. Kidneys: No obstructive calculus or hydronephrosis. No solid mass. No cystic mass. Peritoneum and bowel: The distal esophagus and stomach are normal. The small bowel has a normal caliber and appearance. The terminal ileum is normal. The large bowel has as anastomotic sutures at the rectosigmoid junction. There is short segment wall thickening of the mid to distal sigmoid colon with mild pericolic stranding and diverticula present in the region. No perforation or abscess. The appendix is not definitively visualized; however there are no secondary CT findings to suggest acute appendicitis. No free fluid or air. Nodes and vessels: No retroperitoneal or mesenteric adenopathy by size criteria. Aorta and inferior vena cava are normal in size. The aorta has atherosclerosis with no aneurysmal dilatation. Miscellaneous: No abdominal wall mass or hernia. PELVIS: Genitourinary: The bladder has no wall thickening or mass. No bladder calcifications. A calcified uterine fibroid is suspected. Miscellaneous: No inguinal hernias or adenopathy. Bones: No suspicious bony lesions. Vertebral body height loss of L1 is unchanged. There are multilevel degenerative changes. IMPRESSION: 1. Sigmoid colon wall thickening is probably due to diverticulitis. Adjacent suture line is unremarkable. No perforation or abscess. 2. Additional findings include probable right renal cyst, right hepatic cyst, uterine fibroid, and atherosclerotic changes of the vessels. Dictated by: Ciro Lara M.D. on 05/29/2020 at 8:43 Approved by: Ciro Lara M.D. on 05/29/2020 at 8:52
[2020-05-29 06:06] LABS: RBC Urine 0-1/HPF (0-5/HPF)
[2020-05-29 06:08] LABS: Amorphous Sediment Urine 3+; Bacteria Urine Occasional (0-1); Culture Indicated Urine Cult Not Indicated
[2020-05-29] MEDS: HYDROCODONE/ACET 5/325 PREPACK 1 BOTTLE MISC (07:32)
== END 2020-05-29 07:41 | disposition home or self-care (01) ==
PROVIDERS: Emergency Provider Emergency Medicine; PCP Internal Medicine
DX: K57.92 Diverticulitis of intestine, part unspecified, without perforation or abscess without bleeding (principal); E78.5 Hyperlipidemia, unspecified
CPT/HCPCS: 36415; 74019; 74177; 80053; 81001; 83690; 85025; 96361; 96374; 99283; 99284; J1170; Q9967

== ENCOUNTER → 2020-10-28 08:28 | Outpatient (CLI) | payer OTHER, SELFPAY ==
[2018-11-16 10:39] VITALS: BMI 23.9
[2020-10-28 10:05] LABS: Alanine Aminotransferase 22 IU/L (<35); Albumin Globulin Ratio 1.5 (1.0-2.8); Alkaline Phosphatase 63 U/L (38-126); Aspartate Aminotransferase 27 IU/L (14-36); BUN Creatinine Ratio 18.1 (6-22); Bilirubin Total 0.6 mg/dL (0.2-1.3); Blood Urea Nitrogen 15 mg/dL (7-17); Carbon Dioxide 28 mmol/L (22-32); Chloride 105 mmol/L (98-107); Cholesterol 187 mg/dL (140-199); Estimated Glomerular Filt Rate > 60.0 mL/min (>60); Globulin 2.6 g/dL (1.7-4.1); Glucose 86 mg/dL (80-110); HDL Cholesterol 43 mg/dL (40-60); HEMOLYSIS < 15 (0-50); LDL Cholesterol Calculated 121 mg/dL (<100); Potassium 3.9 mmol/L (3.4-5.1); Sodium 138 mmol/L (137-145); Total Protein 6.6 g/dL (6.3-8.2); Triglycerides 117 mg/dL (35-150)
== END ==
PROVIDERS: PCP Internal Medicine; Referring Provider Internal Medicine; Visit Provider Internal Medicine
DX: E78.5 Hyperlipidemia, unspecified (principal)
CPT/HCPCS: 36415; 80053; 80061

== ENCOUNTER → 2020-10-29 13:16 | Outpatient (CLI) | payer OTHER, SELFPAY ==
[2018-11-16 10:39] VITALS: BMI 23.9
[2020-10-29 14:02] LABS: Appearance Urine UA SL CLOUDY; Bilirubin Urine UA NEGATIVE (NEGATIVE); Color Urine UA YELLOW; Glucose Urine UA NEGATIVE (Negative); Ketones Urine UA NEGATIVE (NEGATIVE); Leukocyte Esterase Urine UA 3+ (NEGATIVE); Nitrite Urine UA POSITIVE (Negative); Occult Blood Urine UA 3+ (Negative); Protein Urine UA NEGATIVE (Negative); Specific Gravity Urine UA 1.015 (1.000-1.035); Urobilinogen Urine UA 0.2 E.U./dL (0.2)
[2020-10-29 14:04] LABS: pH Urine UA 6.5 (4.5-8.0)
[2020-10-29 14:13] LABS: Amorphous Sediment Urine 2+; Bacteria Urine Many (>30); Mucus Urine 1+ (Negative); RBC Urine 5-10/HPF (0-5/HPF); WBC Urine 10-30/HPF (0-5/HPF)
[2020-10-29 14:14] LABS: Culture Indicated Urine Specimen Cultured
== END ==
PROVIDERS: PCP Internal Medicine; Referring Provider Obstetrics & Gynecology; Visit Provider Obstetrics & Gynecology
DX: R39.9 Unspecified symptoms and signs involving the genitourinary system (principal)
CPT/HCPCS: 81001; 87077; 87086; 87186

== ENCOUNTER 2020-12-21 20:01 | Emergency (ER) | payer OTHER, SELFPAY ==
[2018-11-16 10:39] VITALS: BMI 23.9
[2020-12-21 20:48] VITALS: BP 144/75; PULSE 68; RESP 14; TEMP 36.2; O2SAT 99
[2020-12-21] MEDS: ACETAMINOPHEN 325 MG TABLET 650 MG PO (20:53)
--- NOTE | 2020-12-21 22:43 | ED_ITS ---
HPI - Skin/Abscess/Foreign Bdy General Chief complaint: Skin/Abscess/Foreign Body Stated complaint: lt thumb cut Time Seen by Provider: 12/21/20 20:54 Source: patient Mode of arrival: Ambulatory Limitations: no limitations History of Present Illness HPI narrative: 80-year-old female nonsmoker with noncontributory medical history presents with her in the chief complaint of an accidental laceration with a sharp knife of her left thumb just prior to arrival. She was using this knife to pry some [place] off of the lid of a jar. It slipped and she suffered a laceration which is bled significantly. She denies any chance of foreign body, has no numbness or tingling and tetanus is up-to-date. Related Data Home Medications Medication Instructions Recorded Confirmed OTC Acid Hunting And Fishing Guide 1 tab PO BEDTIME 03/05/20 11/29/20 tramadol 50 mg tablet 50 mg PO DAILY PRN tab 03/05/20 11/29/20 Calicum 375mg 1 tab PO DAILY 04/16/20 11/29/20 cholecalciferol (vitamin D3) 25 25 mcg PO DAILY 04/16/20 11/29/20 mcg (1,000 unit) capsule magnesium 250 mg tablet 250 mg PO DAILY 04/16/20 11/29/20 Previous Rx's Medication Instructions Recorded atorvastatin 40 mg tablet 40 mg PO DAILY #90 tab 04/12/20 valacyclovir 1 gram tablet 1,000 mg PO TID PRN #15 tab 10/04/20 alprazolam 0.25 mg tablet 0.25 mg PO BEDTIME #30 tab 10/14/20 Allergies Allergy/AdvReac Type Severity Reaction Status Date / Time No Known Drug Allergies Allergy Verified 12/21/20 20:50 Review of Systems Review of Systems Narrative: GENERAL: Denies chills, fatigue, malaise, fever, sweats. HEENT: Denies sinus pain, ear pain, sore throat, difficulty swallowing, dizziness. RESPIRATORY: Denies dyspnea, cough, wheezing, hemoptysis, sputum. CARDIOVASCULAR: Denies chest pain, palpitations, orthopnea, edema, GASTROINTESTINAL: Denies nausea, vomiting, abdominal pain, diarrhea, constipation, melena. : Denies dysuria, frequency, incontinence, hematuria, urinary retention. MUSCULOSKELETAL: denies weakness, joint pain, or bony pain SKIN: See HPI NEUROLOGIC: Denies weakness, headache, numbness, change in speech, confusion, seizures, incoordination. PSYCHIATRIC: No concerning psychosocial issues. 12 point review of systems is negative except for those stated above Patient History Medical History Cataracts, bilateral (~2018) Cervical spine disease (~2018) Diverticular disease of colon H/O vaginal delivery Hearing loss (~2009) Hemorrhoid (~2009) Herpes (~1993) History of ectopic History of small bowel obstruction History of urinary incontinence (~2007) Hyperlipidemia Insomnia disorder Osteoporosis (~2007) Tinnitus (~1979) Vision disorder Surgical History Anesthesia History of colon resection (~2010) History of laparotomy Small bowel obstruction (~2018) Status post ectopic (~1966) Status post surgery (09/28/08) Family History Father MVA (motor vehicle accident) Mother Congestive heart failure Hyperlipidemia Grandfather History of heart disease Grandmother History of heart disease Hyperlipidemia Stroke Grandfather History of heart disease Grandmother History of heart disease Social History household members: none Smoking Status: Never smoker alcohol intake: never Smoking Status: Never smoker alcohol intake frequency: holidays/special occasions only Substance Use Type: does not use Exam Narrative Exam Narrative: GEN: AOx3 and in mild distress EYES: Pupils are equal, round, and reactive to light and accommodation. Extraoccular muscles are intact bilaterally. There is no subconjunctival hemorrhage or exudate. CHEST: Lungs are clear to auscultation bilaterally and free of wheezes, rales, or rhonchi. Heart rate is regular rhythm, there are no murmurs, clicks, rubs, or gallops. There is no chest wall tenderness. ABD: Abdomen is soft and nontender. There is no guarding or rebound. Bowel sounds are normal in all 4 quadrants. There is no mass or organomegaly. EXT: 1.5 cm laceration on the flexor surface of the tip of left thumb, no nail or nail bed involvement, there is an arterial ?Pumper? which is easily controlled with appropriate pressure, no foreign body noted Full painless ROM of all extremities with no loss of sensation or strength. SKIN: Warm, pink, and dry. No erythema or rash Initial Vital Signs Initial Vital Signs: Vital Signs Temperature 97.1 F L 12/21/20 20:48 Pulse Rate 68 12/21/20 20:48 Respiratory Rate 14 12/21/20 20:48 Blood Pressure 144/75 H 12/21/20 20:48 Pulse Oximetry 99 12/21/20 20:48 Procedures Laceration Repair Laceration 1: Site: hand Side (If applicable): left Size (cm): 1.5 Description: linear Depth: simple, single layer Local Anesthetic: lidocaine 1% and with bicarb Amount of anesthesia used (mL): 3 Pre-repair: wound explored, irrigated extensively and deep structures intact Skin layer closed with: nylon Size (cm): 5-0 Number of sutures: 4 Technique: simple, interrupted Course Orders Ordered: Discontinued Medications Acetaminophen (Acetaminophen 325 Mg Tablet) 650 mg PO NOW ONE Stop: 12/21/20 20:51 Last Admin: 12/21/20 20:53 Dose: 650 mg Documented by: GARRY Lidocaine/Sodium Bicarbonate (Lido 1%/Sod Bicarb 8.4% (10ml) 10 Ml Syringe) 10 ml INJ NOW ONE Stop: 12/21/20 22:44 Vital Signs Vital signs: Vital Signs - 8 hr 12/21/20 20:48 Temperature 97.1 F L Pulse Rate 68 Respiratory Rate 14 Blood Pressure 144/75 H Pulse Oximetry 99 Discharge Plan Departure Patient Disposition: Home Clinical Impression: Laceration of thumb Qualifiers: Encounter type: initial encounter Damage to nail status: without damage Foreign body presence: without foreign body Laterality: left Qualified Code(s): S61.012A - Laceration without foreign body of left thumb without damage to nail, initial encounter Instructions: DI for Laceration Repair Activity Restrictions/Additional Instructions: Please keep the wound clean and dry to the best of your ability. Please monitor for signs of infection such as redness to the skin or increasing pain. Have the sutures removed by your doctor in about 7 days. If you are unable to get into your doctor, we would be happy to remove the sutures in that same timeframe. Prescriptions: No Action atorvastatin 40 mg tablet 40 mg PO DAILY Qty: 90 RF: 3 valacyclovir 1 gram tablet 1,000 mg PO TID PRN (Reason: cold sores) Qty: 15 RF: 5 alprazolam 0.25 mg tablet 0.25 mg PO BEDTIME Qty: 30 RF: 2 tramadol 50 mg tablet 50 mg PO DAILY PRNRF: 0 OTC Acid Hunting And Fishing Guide 1 tab PO BEDTIME RF: 0 cholecalciferol (vitamin D3) 25 mcg (1,000 unit) capsule 25 mcg PO DAILY RF: 0 Calicum 375mg 1 tab PO DAILY RF: 0 magnesium 250 mg tablet 250 mg PO DAILY RF: 0 Referrals: Jose Francisco Dubon MD [Primary Care Provider] -
== END 2020-12-21 23:58 | disposition home or self-care (01) ==
PROVIDERS: Emergency Provider Emergency Medicine; PCP Internal Medicine
DX: S61.012A Laceration without foreign body of left thumb without damage to nail, initial encounter (principal); W26.0XXA Contact with knife, initial encounter
CPT/HCPCS: 12001; 99283

== ENCOUNTER → 2022-04-03 10:19 | Outpatient (CLI) | payer MEDICARE, SELFPAY ==
[2018-11-16 10:39] VITALS: BMI 23.9
[2022-04-03 10:44] LABS: Appearance Urine UA SL CLOUDY; Bilirubin Urine UA NEGATIVE (NEGATIVE); Color Urine UA YELLOW; Glucose Urine UA NEGATIVE (Negative); Ketones Urine UA NEGATIVE (NEGATIVE); Leukocyte Esterase Urine UA 3+ (NEGATIVE); Nitrite Urine UA NEGATIVE (Negative); Occult Blood Urine UA 3+ (Negative); Protein Urine UA 2+ (Negative); Specific Gravity Urine UA <=1.005 (1.000-1.035); Urobilinogen Urine UA 0.2 E.U./dL (0.2)
[2022-04-03 10:47] LABS: pH Urine UA 6.5 (4.5-8.0)
[2022-04-03 10:54] LABS: RBC Urine 5-10/HPF (0-5/HPF)
[2022-04-03 10:55] LABS: Bacteria Urine None Seen; Culture Indicated Urine Specimen Cultured; Squamous Epithelial Cell Urine 1-5 /HPF (0-5/HPF); WBC Urine 30-100/HPF (0-5/HPF)
== END ==
PROVIDERS: PCP Internal Medicine; Referring Provider Internal Medicine; Visit Provider Internal Medicine
DX: R31.9 Hematuria, unspecified (principal)
CPT/HCPCS: 81001; 87086

== ENCOUNTER → 2022-08-10 09:40 | Outpatient (CLI) | payer MEDICARE, SELFPAY ==
[2018-11-16 10:39] VITALS: BMI 23.9
[2022-08-10 11:39] LABS: Hematocrit 41.6 % (36-46); Hemoglobin 13.8 g/dL (12.0-16.0); Mean Corpuscular HGB Conc 33.3 % (30-36); Mean Corpuscular Hemoglobin 31.1 PG (26-34); Mean Corpuscular Volume 93.4 fL (80-100); Platelet Count 174 X10^3/uL (150-400); Red Blood Cell Count 4.45 X10^6/uL (4.0-5.2); Red Cell Distribution Width 13.9 % (11.6-14.8); White Blood Cell Count 4.5 X10^3/uL (4.5-11.0)
[2022-08-10 11:50] LABS: Alanine Aminotransferase 25 IU/L (<35); Albumin Globulin Ratio 1.5 (1.0-2.8); Alkaline Phosphatase 63 U/L (38-126); Aspartate Aminotransferase 26 IU/L (14-36); BUN Creatinine Ratio 23.3 (6-22); Bilirubin Total 0.4 mg/dL (0.2-1.3); Blood Urea Nitrogen 17 mg/dL (7-17); Calcium 9.1 mg/dL (8.4-10.2); Carbon Dioxide 29 mmol/L (22-32); Chloride 103 mmol/L (98-107); Cholesterol 192 mg/dL (140-199); Estimated Glomerular Filt Rate > 60 mL/min (>60); Globulin 2.7 g/dL (1.7-4.1); Glucose 74 mg/dL (80-110); HDL Cholesterol 44 mg/dL (40-60); HEMOLYSIS < 15 (0-50); LDL Cholesterol Calculated 112 mg/dL (<100); Potassium 4.1 mmol/L (3.4-5.1); Sodium 137 mmol/L (137-145); Total Protein 6.7 g/dL (6.3-8.2); Triglycerides 178 mg/dL (35-150)
[2022-08-10 12:15] LABS: Vitamin D 25 Hydroxy (D3) 54.8 ng/mL (30.0-100.0)
[2022-08-10 12:36] LABS: TSH w/ Reflex to FT4 2.49 uIU/mL (0.47-4.68)
== END ==
PROVIDERS: PCP Internal Medicine; Referring Provider Internal Medicine; Visit Provider Internal Medicine
DX: E55.9 Vitamin D deficiency, unspecified (principal); E78.2 Mixed hyperlipidemia; M81.0 Age-related osteoporosis without current pathological fracture; F41.1 Generalized anxiety disorder
CPT/HCPCS: 36415; 80053; 80061; 82306; 84443; 85027

== ENCOUNTER → 2022-08-17 10:28 | Outpatient (CLI) | payer MEDICARE, SELFPAY ==
[2018-11-16 10:39] VITALS: BMI 23.9
--- NOTE | 2022-08-17 11:13 | DI.DEXA.S_ITS ---
Indication: osteopenia; secondary osteoporosis; Referring Provider: SIDNEY PRATT Study: Bone densitometry was performed. Exam Date: August 17, 2022 Accession number: [id number] Bone Density: Region BMD T-score Z-score Classification AP Spine(L1, L2, L3) 0.882 -1.2 1.4 Osteopenia Femoral Neck (Left) 0.664 -1.7 0.7 Osteopenia Total Hip (Left) 0.792 -1.2 0.9 Osteopenia Femoral Neck (Right) 0.636 -1.9 0.4 Osteopenia Total Hip (Right) 0.768 -1.4 0.7 Osteopenia Total Hip Mean 0.780 -1.3 0.8 Osteopenia World Health Organization criteria for BMD impression classify patients as: Normal (T-score at or above -1.0), Osteopenia (T-score between -1.0 and -2.5), or Osteoporosis (T-score at or below -2.5). 10-year Fracture Risk(1): Major Osteoporotic Fracture 15% Hip Fracture 4.3% Reported Risk Factors: [place] (), Neck BMD=0.636, BMI=24.7, secondary osteoporosis (1) FRAX(R) Version 3.08. Fracture probability calculated for an untreated patient. Fracture probability may be lower if the patient has received treatment. Previous Exams: -- Region Exam Age BMD T-score BMD Change BMD Change Date g/cm2 vs Baseline vs Previous -- AP Spine (L1-L3) 08/17/2022 82 0.882 -1.2 0.001 (0.1%)# 0.001 (0.1%)# 06/18/2017 77 0.881 -1.2 Total Hip(Left) 08/17/2022 82 0.792 -1.2 -0.060 (-7.0%)# -0.060 (-7.0%)# 06/18/2017 77 0.851 -0.7 Total Hip(Right) 08/17/2022 82 0.768 -1.4 -0.075 (-8.9%)# -0.075 (-8.9%)06/18/2017 77 0.843 -0.8 -- *Denotes significance at 95% confidence level, LSC for AP Spine = 0.022 g/cm2, LSC for Total Hip = 0.027 g/cm2 # Denotes dissimilar scan types or analysis methods Impression: The patient has low bone mass, based on the Right Femoral Neck T-score. The patient has an estimated ten-year risk of hip fracture of 4.3% and an estimated ten-year risk of major fracture of 15%, based on the WHO FRAX algorithm. No significant bone loss was observed. Discussion: BONE DENSITY IS LOW AT ONE OR MORE SKELETAL SITES. THE PATIENT'S BMD AND CLINICAL RISK FACTORS CONTRIBUTE TO THIS PATIENT'S INCREASED RISK OF FRACTURE. This patient's lowest T-score is low at one or more skeletal sites. It meets the World Health Organization's (WHO) criteria for ?low bone mass? (T-score between -1.0 and -2.5). The patient's 10-year risk of hip fracture as calculated by FRAX exceeds the threshold where pharmacological therapy is recommended by the National Osteoporosis Foundation (NOF). However, all treatment decisions require clinical judgment and consideration of individual patient factors, including patient preferences, comorbidities, previous drug use, risk factors not captured in the FRAX model (e.g., frailty, falls, vitamin D deficiency, increased bone turnover, interval significant decline in bone density) and possible under or overestimation of fracture risk by FRAX. The patient should follow a healthful lifestyle (good nutrition with adequate calcium and vitamin D, and appropriate weight-bearing exercise). Follow-Up: Consider a repeat BMD and Vertebral Fracture Assessment (VFA) exam in 2 years or sooner if medically necessary, to reassess this patient's status. Reported by: Cain Thomas M.D. on 08/17/2022 11:24:00 AM.
== END ==
PROVIDERS: PCP Internal Medicine; Referring Provider Internal Medicine; Visit Provider Internal Medicine
DX: M81.0 Age-related osteoporosis without current pathological fracture (principal); Z78.0 Asymptomatic menopausal state
CPT/HCPCS: 77080

== ENCOUNTER → 2023-08-16 16:59 | Outpatient (CLI) | payer OTHER, SELFPAY ==
[2023-08-08 10:39] VITALS: BMI 23.9
[2023-08-16 18:51] LABS: Aspartate Aminotransferase 25 IU/L (14-36); BUN Creatinine Ratio 28.6 (6-22); Blood Urea Nitrogen 22 mg/dL (7-17); Calcium 9.6 mg/dL (8.4-10.2); Carbon Dioxide 30 mmol/L (22-32); Chloride 108 mmol/L (98-107); Cholesterol 181 mg/dL (140-199); Estimated Glomerular Filt Rate > 60 mL/min (>60); Glucose 113 mg/dL (80-110); HDL Cholesterol 49 mg/dL (40-60); HEMOLYSIS 17 (0-50); LDL Cholesterol Calculated 95 mg/dL (<100); Sodium 139 mmol/L (137-145); Triglycerides 183 mg/dL (35-150)
== END ==
PROVIDERS: PCP Internal Medicine; Referring Provider Internal Medicine; Visit Provider Internal Medicine
DX: E78.2 Mixed hyperlipidemia (principal)
CPT/HCPCS: 36415; 80048; 80061; 84450

== ENCOUNTER → 2023-08-30 13:48 | Outpatient (CLI) | payer MEDICARE, SELFPAY ==
[2023-08-08 10:39] VITALS: BMI 23.9
[2023-08-30 15:22] LABS: Appearance Urine UA CLEAR; Bilirubin Urine UA NEGATIVE (NEGATIVE); Color Urine UA YELLOW; Glucose Urine UA NEGATIVE (Negative); Ketones Urine UA NEGATIVE (NEGATIVE); Leukocyte Esterase Urine UA NEGATIVE (NEGATIVE); Nitrite Urine UA NEGATIVE (Negative); Occult Blood Urine UA NEGATIVE (Negative); Protein Urine UA NEGATIVE (Negative); Urobilinogen Urine UA 0.2 E.U./dL (0.2)
[2023-08-30 15:23] LABS: pH Urine UA 6.5 (4.5-8.0)
[2023-08-30 15:31] LABS: Bacteria Urine None Seen; Culture Indicated Urine Cult Not Indicated; RBC Urine None Seen (0-5/HPF); Squamous Epithelial Cell Urine None Seen (0-5/HPF); Urine Volume 10mL (spun); WBC Urine None Seen (0-5/HPF)
== END ==
PROVIDERS: PCP Internal Medicine; Referring Provider Internal Medicine; Visit Provider Internal Medicine
DX: R32 Unspecified urinary incontinence (principal); N39.0 Urinary tract infection, site not specified
CPT/HCPCS: 81001

== ENCOUNTER 2024-01-28 13:00 | Outpatient (RCR) | payer MEDICARE, SELFPAY ==
[2023-08-30 15:47] VITALS: BMI 23.9
--- NOTE | 2023-11-22 16:08 | PT.OIE ---
Current Diagnoses Dorsalgia, unspecified (11/22/23) Other lack of coordination (11/22/23) Weakness (11/22/23) Past Medical History (Last Reviewed 08/30/23 @ 15:52 by Ritesh Renae MD) Cataracts, bilateral (~2018) Cervical spine disease (~2018) Diverticular disease of colon Do not resuscitate Generalized anxiety disorder Grief reaction H/O vaginal delivery Hearing loss (~2009) Hemorrhoid (~2009) Herpes (~1993) History of ectopic History of small bowel obstruction History of urinary incontinence (~2007) Impulse control disorder Insomnia Mixed hyperlipidemia Osteopenia PTSD (post-traumatic stress disorder) (~10/2021) Tinnitus (~1979) Urinary incontinence Vision disorder Past Surgical History (Last Reviewed 08/30/23 @ 15:52 by Ritesh Renae MD) Anesthesia History of colon resection (~2010) History of laparotomy Small bowel obstruction (~2018) Status post ectopic (~1966) Status post surgery (09/28/08) Visit Care Team Role Provider Type Ritesh Renae MD Attending Provider Physician Family Provider Primary Care Provider Referring Provider Specialty: Internal Medicine Address: [address] [place] [address] Email: [email or web address] Therapy Initial Evaluation PT-OP-A Visit Information Start: 11/22/23 11:17 Freq: Status: Active Protocol: Document 11/22/23 11:18 NM (Rec: 11/22/23 15:49 NM [id number]) Out-Patient Physical Therapy Visit Information Visit Information Visit Type Initial Evaluation Visit Start Time 11:18 Visit Stop Time 12:00 Visit Number 1 Evaluation Information Evaluation Date 11/22/23 Precautions Precautions fall risk, osteoporosis PT-OP-B Current Condition Start: 11/22/23 11:17 Freq: Status: Active Protocol: Document 11/22/23 11:18 NM (Rec: 11/22/23 12:06 NM [id number]) Current Condition History of Current Condition Onset Date September 2023 Current Complaints pain, gait, stairs History of Current Condition Pt visited doctor 1 month ago during walking because of annoying pain in L knee. PCP said biomechanics are wrong. Gave her exercises: knees over toes knee flex, which led to back pain when walking. She now has back pain. Pt reports that she has been walking less , due to busy. States no symptoms. Wants to be able to walk correctly. Has no symptoms currently. States that she thinks has more discomfort when walking up hill. Restarted walking 3 weeks ago, L knee pain. She has less pain as she walks, after 15 minutes. She reports balance is worse. She has knee pain also when going down stairs. Knee pain started gradually 6 months ago, until a month ago when she contacted doctor; denies MARY. In September, she went to [employer]; bought a knee pad, which made no difference. Currently reports that her back pain has resolved. Was lifting sand bags and deck umbrella. Last time she had back pain was 2 weeks ago; started at end of september. Regarding balance: cataract surgery (near>far) which throws off balance; reports no falls but has to walk on uneven surfaces on ground and many stairs. Lives alone. 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 [employer] Baseline Function- Other 2 story home, lives on 1 floor Current Functional Impairments (Reported) Functional Limitations- Mobility/Gait 2 mi [facility] stairs (uses rails to assist up and down, pain with descent ) Functional Limitations- Recreation/ floor transfers, gardening ( Hobbies kneeling ok) PT-OP-C Subjective Start: 11/22/23 11:17 Freq: Status: Active Protocol: Document 11/22/23 11:18 NM (Rec: 11/22/23 12:06 NM [id number]) OP-PT Subjective Patient Comments Patient Comments see hx above Patient Questionnaires Lower Extremity Functional Scale LEFS Score 60/80 Oswestry Low Back Index Oswestry Score 3/50 OP-PT Pain Assessment Location back Pain Location Details bandlike across lower back, equal Intensity 3 Scale Used Numeric (0 - 10) Description Aching Pain Aggravating Factors Lifting Other Pain Aggravating Factors change in activity Pain Alleviating Factors Medication,Inactivity L knee Pain Location Details lateral knee Intensity 4 Scale Used Numeric (0 - 10) Description Sharp Frequency Intermittent Pain Aggravating Factors Walking,Stair Climbing Other Pain Aggravating Factors hills Other Pain Alleviating Factors continue walking, brace PT-OP-D Balance Start: 11/22/23 11:17 Freq: Status: Active Protocol: Document 11/22/23 11:18 NM (Rec: 11/22/23 15:49 NM [id number]) Balance Tests mCTSIB mCTSIB Position 1 EO, stable: 30 sec mCTSIB Position 2 EC, stable: 10 sec mCTSIB Position 3 EO, foam: 12 sec mCTSIB Position 4 EC, foam: 5 sec Single Limb Standing Single Limb- Right 8 sec Single Limb- Left 5 sec Tandem Tandem Standing 3 sec but requires help to step PT-OP-E Functional Tests Start: 11/22/23 11:17 Freq: Status: Active Protocol: Document 11/22/23 11:18 NM (Rec: 11/22/23 12:06 NM [id number]) Functional Tests 30 Second Sit to Stand Test Score 15 Dynamic Gait Index (DGI) Score Five Times Sit to Stand Test Score 8 sec PT-OP-F Manual Assessment Start: 11/22/23 11:17 Freq: Status: Active Protocol: Document 11/22/23 11:18 NM (Rec: 11/22/23 12:06 NM [id number]) Manual Assessments Soft Tissue Assessment Soft Tissue Mobility Assessment Increased hamstring length bilaterally, tight L ITB. Trunk shortness and due to scoliosis Joint Mobility Assessment Joint Mobility Assessment No ligamentous instability of L knee. Hypomobile lumbar spine with P-A springing PT-OP-G Mobility & Gait Start: 11/22/23 11:17 Freq: Status: Active Protocol: Document 11/22/23 11:18 NM (Rec: 11/22/23 12:06 NM [id number]) OP Gait Assessment Gait Distance (Feet) 300 Assistive Devices Assistive Device Gait Belt Gait Deviations General Gait Pattern Antalgic,Decreased Stride Length,Decreased Feet Clearance,Flexed Trunk Factors Limiting Gait Function Factors Limiting Gait Function Decreased Activity Tolerance, Pain Comments Gait Comments Demos B foot ER and trunk has tendency to lean L Stair Climbing Evaluation Comments Stair Climbing Comments rail, ER, pain near paterlla medial PT-OP-J Posture/Palpation/Skin Start: 11/22/23 11:17 Freq: Status: Active Protocol: Document 11/22/23 11:18 NM (Rec: 11/22/23 12:06 NM [id number]) Posture Evaluation Position Standing T-Spine Posture Flexible Scoliosis on (R), Increased Kyphosis Thorax Posture (R) Prominent L-Spine Posture Increased Lordosis,Fixed Scoliosis on (L) Shoulder Posture (L) Elevated Pelvis Posture Anteriorly Tilted,(R) Iliac Crest Superior Weight Distribution Balanced Knee Posture (L) Genu Valgus,(R) Genu Valgus Patellar Posture (L) Superior,(R) Superior,(L) Laterally Tilted Ankle/Foot Posture (L) Pronated,(R) Pronated Comments Posture Comments rib hump Palpation Assessment Location lumbar spine Palpation Details Increased paraspinals tightness Mild tenderness along PSIS/SIJ L knee Palpation Details No tenderness to palpation PT-OP-K Range of Motion Start: 11/22/23 11:17 Freq: Status: Active Protocol: Document 11/22/23 11:18 NM (Rec: 11/22/23 12:06 NM [id number]) Lumbar Spine Range of Motion Lumbar Spine Active Percentage Flexion 100 Extension 100 Lateral Flexion Left 75 Lateral Flexion Right 100 Knee Goniometric Range of Motion Knee Right Flexion Active (degrees) 135 Hyper-Extension Active 2 Comments HS 170 deg Left Flexion Active (degrees) 130 Hyper-Extension Active 2 Comments HS 158 PT-OP-L Special Tests Start: 11/22/23 11:17 Freq: Status: Active Protocol: Document 11/22/23 11:18 NM (Rec: 11/22/23 12:06 NM [id number]) Special Tests Knee Special Tests Tesha's Test Test Results + PT-OP-M Strength Start: 11/22/23 11:17 Freq: Status: Active Protocol: Document 11/22/23 11:18 NM (Rec: 11/22/23 12:06 NM [id number]) Trunk Strength Trunk Manual Muscle Testing Flexion 4 Good Extension 4 Good Rotation Left 4 Good Rotation Right 4 Good Lateral Flexion Left 4 Good Lateral Flexion Right 4 Good Comments pain free Hip Strength Hip Manual Muscle Testing Right Flexion (L2) 4 Good Extension (S1) 4 Good Abduction 4 Good Adduction 4 Good External Rotation 4 Good Internal Rotation 4 Good Left Flexion (L2) 4- Good- Extension (S1) 4- Good- Abduction 4- Good- Adduction 4- Good- External Rotation 4- Good- Internal Rotation 4- Good- Knee Strength Knee Manual Muscle Testing Right Flexion (S2) 4 Good Extension (L3) 4 Good Left Flexion (S2) 4- Good- Extension (L3) 4- Good- PT-OP-T Assessment and Plan Start: 11/22/23 11:17 Freq: Status: Active Protocol: Document 11/22/23 11:18 NM (Rec: 11/22/23 12:06 NM [id number]) Physical Therapy Assessment Rehab Potential Rehabilitation Potential Good Evaluation Complexity Number of Personal Factors/Comorbidities 3 or More Number of Body Systems Impaired 1-2 Clinical Presentation at Evaluation Stable Impairments Impairments Activity Tolerance,Balance, Functional Activities, Functional Mobility,Gait, Integument,Pain,Posture,ROM, Sensation,Soft Tissue Mobility ,Strength,Transfers Goals Four Impairment balance Short Term Goal (STG) Pt will be able to maintain tandem stance at least 10 seconds or single leg stance at least 10 seconds without UE assistance in order to demonstrate improved hip/core strength and balance during gait STG Duration 6 weeks Senior Care Goal (LTG) Pt will be able to maintain tandem stance at least 30 seconds or single leg stance at least 30 seconds without UE assistance in order to demonstrate improved hip/core strength and balance during gait LTG Duration 12 weeks Three Impairment trunk strength Short Term Goal (STG) Pt will be educated on core bracing, hip hinge, and body mechanics when picking up objects or lifting objects to decrease back pain STG Duration 6 weeks Senior Care Goal (LTG) Pt will improve global trunk strength MMT to >4/5 MMT in order to demonstrate improved ability to brace core during functional ADLs, including lifting objects LTG Duration 12 weeks Two Impairment gait Short Term Goal (STG) Pt will report no increase in baseline pain with daily ambulation on flat surfaces in order to demonstrate improved pain management and hip strength STG Duration 6 weeks Senior Care Goal (LTG) Pt will report no pain with ambulation on hills in order to demonstrate improved pain management and hip strength LTG Duration 12 weeks One Impairment stairs Short Term Goal (STG) Pt will be able to perform at least 10 step ups on 6 step without increase in baseline pain in order to demonstrate improved BLE strength, pain management, and household mobility STG Duration 6 weeks Biomedical Service Engineer Goal (LTG) Pt will report no increase in baseline pain with at least 8 stairs with or without rail in order to demonstrate improved BLE strength, pain management , and household mobility LTG Duration 12 weeks Assessment Summary Assessment Pt is an 83 y.o. female presenting with L knee and back pain. Her pain began in August and has been intermittent. Her pain is primarily present when she is ambulating, performing stairs, or when lifting objects. She has impairments in ROM, strength, balance, gait, stairs, ADLs, pain management, and activity tolerance. Pt has slight limitations in L knee flexion ROM, and her L hip/knee strength is reduced compared to her RLE. Her symptoms are consistent with IT band syndrome due to functional pain reproduction, positive tesha's test, and tenderness with palpation. Pt' s trunk ROM is limited in the frontal plane. Her trunk strength is pain free but she has difficulty with stabilizing her trunk against resistance. Her back pain is mainly reproduced with bending and lifting; she would benefit from education regarding core bracing and strengthening in addition to body mechanics training. Pt demonstrates limitations in ability to perform stairs due to pain. Due to poor balance and weakness, she has limitations in balance when her MELISSA is narrowed or requires single leg stance. Pt would benefit from skilled PT for global core and hip strengthening, flexibility and balance training in order to improve pain management, improve activity tolerance, and improve QOL and independence. Physical Therapy Plan Frequency and Duration Frequency of Treatment 1-2x/wk Duration of treatment (weeks) 12 Plan of Care Start Date 11/22/23 Plan of Care End Date 02/15/24 Therapeutic Interventions Therapeutic Interventions Balance Training,Gait Training ,Home Exercise Program,Joint Mobilizations,Manual Therapy, Neuromuscular Re-education, Orthotic/Prosthetic Management ,Patient/Caregiver Education, Self-Care/Home Management,Soft Tissue Mobilization,Taping, Therapeutic Activities, Therapeutic Exercises Modalities Cold Pack/Ice Massage,Electric Stimulation,Hot Packs, Ultrasound Other Therapeutic Interventions No grade IV mobilizations Pelvic realignment Next Visit Focus/Plan Next Note Type Treatment Note Next Visit Plan Flexibility and core strength (flexion bias) Hip strengthening: HS, glutes, LAQ, squats, hip 3 way, glute medius Balance training: SLS with support and decrease support, stable > unstable surface, narrow MELISSA fall risk, osteoporosis
--- NOTE | 2023-11-26 11:25 | PT.OTN ---
Current Diagnoses Dorsalgia, unspecified (11/26/23) Other lack of coordination (11/26/23) Weakness (11/26/23) Physical Therapy Treatment Note PT-OP-A Visit Information Start: 11/22/23 11:17 Freq: Status: Active Protocol: Document 11/26/23 10:36 NM (Rec: 11/26/23 11:25 NM [id number]) Out-Patient Physical Therapy Visit Information Visit Information Visit Type Treatment Note Visit Start Time 10:36 Visit Stop Time 11:15 Visit Number 2 Evaluation Information Evaluation Date 11/22/23 PT-OP-B Current Condition Start: 11/22/23 11:17 Freq: Status: Active Protocol: Document 11/22/23 11:18 NM (Rec: 11/22/23 12:06 NM [id number]) Current Condition History of Current Condition Onset Date September 2023 Current Complaints pain, gait, stairs History of Current Condition Pt visited doctor 1 month ago during walking because of annoying pain in L knee. PCP said biomechanics are wrong. Gave her exercises: knees over toes knee flex, which led to back pain when walking. She now has back pain. Pt reports that she has been walking less , due to busy. States no symptoms. Wants to be able to walk correctly. Has no symptoms currently. States that she thinks has more discomfort when walking up hill. Restarted walking 3 weeks ago, L knee pain. She has less pain as she walks, after 15 minutes. She reports balance is worse. She has knee pain also when going down stairs. Knee pain started gradually 6 months ago, until a month ago when she contacted doctor; stefanie HERNANDEZ. In September, she went to [facility]; bought a knee pad, which made no difference. Currently reports that her back pain has resolved. Was lifting sand bags and deck umbrella. Last time she had back pain was 2 weeks ago; started at end of september. Regarding balance: cataract surgery (near>far) which throws off balance; reports no falls but has to walk on uneven surfaces on ground and many stairs. Lives alone. 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 She takes breaks when her back bother hers. She went birdwatching and walking over the weekend. Pt went to a strength class this morning ( squats, arm exercises push up, planks). PT-OP-D Balance Start: 11/22/23 11:17 Freq: Status: Active Protocol: Document 11/22/23 11:18 NM (Rec: 11/22/23 15:49 NM [id number]) Balance Tests mCTSIB mCTSIB Position 1 EO, stable: 30 sec mCTSIB Position 2 EC, stable: 10 sec mCTSIB Position 3 EO, foam: 12 sec mCTSIB Position 4 EC, foam: 5 sec Single Limb Standing Single Limb- Right 8 sec Single Limb- Left 5 sec Tandem Tandem Standing 3 sec but requires help to step PT-OP-E Functional Tests Start: 11/22/23 11:17 Freq: Status: Active Protocol: Document 11/22/23 11:18 NM (Rec: 11/22/23 12:06 NM [id number]) Functional Tests 30 Second Sit to Stand Test Score 15 Dynamic Gait Index (DGI) Score Five Times Sit to Stand Test Score 8 sec PT-OP-F Manual Assessment Start: 11/22/23 11:17 Freq: Status: Active Protocol: Document 11/22/23 11:18 NM (Rec: 11/22/23 12:06 NM [id number]) Manual Assessments Soft Tissue Assessment Soft Tissue Mobility Assessment Increased hamstring length bilaterally, tight L ITB. Trunk shortness and due to scoliosis Joint Mobility Assessment Joint Mobility Assessment No ligamentous instability of L knee. Hypomobile lumbar spine with P-A springing PT-OP-G Mobility & Gait Start: 11/22/23 11:17 Freq: Status: Active Protocol: Document 11/22/23 11:18 NM (Rec: 11/22/23 12:06 NM [id number]) OP Gait Assessment Gait Distance (Feet) 300 Assistive Devices Assistive Device Gait Belt Gait Deviations General Gait Pattern Antalgic,Decreased Stride Length,Decreased Feet Clearance,Flexed Trunk Factors Limiting Gait Function Factors Limiting Gait Function Decreased Activity Tolerance, Pain Comments Gait Comments Demos B foot ER and trunk has tendency to lean L Stair Climbing Evaluation Comments Stair Climbing Comments rail, ER, pain near paterlla medial PT-OP-J Posture/Palpation/Skin Start: 11/22/23 11:17 Freq: Status: Active Protocol: Document 11/22/23 11:18 NM (Rec: 11/22/23 12:06 NM [id number]) Posture Evaluation Position Standing T-Spine Posture Flexible Scoliosis on (R), Increased Kyphosis Thorax Posture (R) Prominent L-Spine Posture Increased Lordosis,Fixed Scoliosis on (L) Shoulder Posture (L) Elevated Pelvis Posture Anteriorly Tilted,(R) Iliac Crest Superior Weight Distribution Balanced Knee Posture (L) Genu Valgus,(R) Genu Valgus Patellar Posture (L) Superior,(R) Superior,(L) Laterally Tilted Ankle/Foot Posture (L) Pronated,(R) Pronated Comments Posture Comments rib hump Palpation Assessment Location lumbar spine Palpation Details Increased paraspinals tightness Mild tenderness along PSIS/SIJ L knee Palpation Details No tenderness to palpation PT-OP-K Range of Motion Start: 11/22/23 11:17 Freq: Status: Active Protocol: Document 11/22/23 11:18 NM (Rec: 11/22/23 12:06 NM [id number]) Lumbar Spine Range of Motion Lumbar Spine Active Percentage Flexion 100 Extension 100 Lateral Flexion Left 75 Lateral Flexion Right 100 Knee Goniometric Range of Motion Knee Right Flexion Active (degrees) 135 Hyper-Extension Active 2 Comments HS 170 deg Left Flexion Active (degrees) 130 Hyper-Extension Active 2 Comments HS 158 PT-OP-L Special Tests Start: 11/22/23 11:17 Freq: Status: Active Protocol: Document 11/22/23 11:18 NM (Rec: 11/22/23 12:06 NM [id number]) Special Tests Knee Special Tests Tammie's Test Test Results + PT-OP-M Strength Start: 11/22/23 11:17 Freq: Status: Active Protocol: Document 11/22/23 11:18 NM (Rec: 11/22/23 12:06 NM [id number]) Trunk Strength Trunk Manual Muscle Testing Flexion 4 Good Extension 4 Good Rotation Left 4 Good Rotation Right 4 Good Lateral Flexion Left 4 Good Lateral Flexion Right 4 Good Comments pain free Hip Strength Hip Manual Muscle Testing Right Flexion (L2) 4 Good Extension (S1) 4 Good Abduction 4 Good Adduction 4 Good External Rotation 4 Good Internal Rotation 4 Good Left Flexion (L2) 4- Good- Extension (S1) 4- Good- Abduction 4- Good- Adduction 4- Good- External Rotation 4- Good- Internal Rotation 4- Good- Knee Strength Knee Manual Muscle Testing Right Flexion (S2) 4 Good Extension (L3) 4 Good Left Flexion (S2) 4- Good- Extension (L3) 4- Good- PT-OP-Q Treatments Start: 11/22/23 11:17 Freq: Status: Active Protocol: Document 11/26/23 10:36 NM (Rec: 11/26/23 11:25 NM [id number]) Therapeutic Exercises Supine Exercises TrA activation Supine Exercise Name 1. abdominal bracing, 2. LTR, 3. BKFO Reps/Minutes 1. 5 reps, 2. 2x30, 3. 10 ea Comments cued for form, slower BKFO, core brace; edu on ratioanle w / core brace tamara stretch Side bilateral Reps/Minutes 60 Comments feels good, appropriate feedback Sidelying Exercises hip adduction Side bilateral Reps/Minutes 10 with 2 hold Comments pain free, reports good activation hip abduction Side bilateral Reps/Minutes 2x10 Comments reports QL activation, no pain in knee/hip/back; cued for form, no trunk ro Sitting Exercises LAQ Side bilateral Resistance level 2 band around ankles/ foot Reps/Minutes 10x2 hold Comments cued TKE Standing Exercises calf stretch Standing Exercise Name 1. gastroc, 2. soleus Side bilateral Equipment Used staggered stance at wall Reps/Minutes 1x30 ea Comments good feedback with stretch Other Exercises self soft tissue mobilization Other Exercise Name quad, HS, calf, lumbar paraspinals and glutes w/ racquetball Side bilateral Equipment Used rolling pin Reps/Minutes 4 minutes total Comments feels good, edu for use at home for tissue relaxation Self-Care/Home Management Treatment Education Patient Education Home Exercise Program,Pain Management Other Education Educated to start back with strength class 1-2x/wk since concurrent with PT and has not been attending recently in order to prevent overuse and re-injury HEP: LTR, seated LAQ with band (issued band), sidelying hip abduction, G/S stretch PT-OP-T Assessment and Plan Start: 11/22/23 11:17 Freq: Status: Active Protocol: Document 11/26/23 10:36 NM (Rec: 11/26/23 11:25 NM [id number]) Physical Therapy Assessment Goals Four Impairment balance Short Term Goal (STG) Pt will be able to maintain tandem stance at least 10 seconds or single leg stance at least 10 seconds without UE assistance in order to demonstrate improved hip/core strength and balance during gait STG Duration 6 weeks Skilled Nursing Goal (LTG) Pt will be able to maintain tandem stance at least 30 seconds or single leg stance at least 30 seconds without UE assistance in order to demonstrate improved hip/core strength and balance during gait LTG Duration 12 weeks Three Impairment trunk strength Short Term Goal (STG) Pt will be educated on core bracing, hip hinge, and body mechanics when picking up objects or lifting objects to decrease back pain STG Duration 6 weeks Skilled Nursing Goal (LTG) Pt will improve global trunk strength MMT to >4/5 MMT in order to demonstrate improved ability to brace core during functional ADLs, including lifting objects LTG Duration 12 weeks Two Impairment gait Short Term Goal (STG) Pt will report no increase in baseline pain with daily ambulation on flat surfaces in order to demonstrate improved pain management and hip strength STG Duration 6 weeks Skilled Nursing Goal (LTG) Pt will report no pain with ambulation on hills in order to demonstrate improved pain management and hip strength LTG Duration 12 weeks One Impairment stairs Short Term Goal (STG) Pt will be able to perform at least 10 step ups on 6 step without increase in baseline pain in order to demonstrate improved BLE strength, pain management, and household mobility STG Duration 6 weeks Test Clerk Goal (LTG) Pt will report no increase in baseline pain with at least 8 stairs with or without rail in order to demonstrate improved BLE strength, pain management , and household mobility LTG Duration 12 weeks Assessment Summary Assessment Pt tolerated session well. Good response to soft tissue mobilization, stretching. Educated on use of rolling pin and racquetball for self mobilization, muscle relaxation. Initiated core bracing and hip/quad strengthening. Pt has tendency to berman through exercises, so requires moderate cues for control and form, especially to emphasize core bracing and breathing. Pt challenged with maintaining form during sidelying hip abduction, but able to perform pain free with cueing. During LAQ, pt cued to prevent compensations with trunk. Challenging, but gets TKE with good quad activation. Pt would benefit from skilled PT for core/lumbar and hip strengthening in addition to mobility and balance training in order to manage symptoms and improve activity tolerance . Physical Therapy Plan Frequency and Duration Frequency of Treatment 1-2x/wk Duration of treatment (weeks) 12 Plan of Care Start Date 11/22/23 Plan of Care End Date 02/15/24 Therapeutic Interventions Therapeutic Interventions Balance Training,Gait Training ,Home Exercise Program,Joint Mobilizations,Manual Therapy, Neuromuscular Re-education, Orthotic/Prosthetic Management ,Patient/Caregiver Education, Self-Care/Home Management,Soft Tissue Mobilization,Taping, Therapeutic Activities, Therapeutic Exercises Modalities Cold Pack/Ice Massage,Electric Stimulation,Hot Packs, Ultrasound Other Therapeutic Interventions No grade IV mobilizations Pelvic realignment Next Visit Focus/Plan Next Note Type Treatment Note Next Visit Plan Standing hip flexor stretch, supine HS stretch, review s/l hp abd, LAQ, sit to stand with band Flexibility and core strength (flexion bias) Hip strengthening: HS, glutes, LAQ, squats, hip 3 way, glute medius Balance training: SLS with support and decrease support, stable > unstable surface, narrow MELISSA fall risk, osteoporosis
--- NOTE | 2023-11-28 12:11 | PT.OTN ---
Current Diagnoses Dorsalgia, unspecified (11/28/23) Other lack of coordination (11/28/23) Weakness (11/28/23) Physical Therapy Treatment Note PT-OP-A Visit Information Start: 11/22/23 11:17 Freq: Status: Active Protocol: Document 11/28/23 10:33 AB (Rec: 11/28/23 12:11 AB [id number]) Out-Patient Physical Therapy Visit Information Visit Information Visit Type Treatment Note Visit Note Access Code [email or web address] Visit Start Time 10:34 Visit Stop Time 11:17 Visit Number 3 Number of STAVE BLOCK SPLITTER Visits 1 Evaluation Information Evaluation Date 11/22/23 Precautions Precautions fall risk, osteoporosis PT-OP-B Current Condition Start: 11/22/23 11:17 Freq: Status: Active Protocol: Document 11/22/23 11:18 NM (Rec: 11/22/23 12:06 NM [id number]) Current Condition History of Current Condition Onset Date September 2023 Current Complaints pain, gait, stairs History of Current Condition Pt visited doctor 1 month ago during walking because of annoying pain in L knee. PCP said biomechanics are wrong. Gave her exercises: knees over toes knee flex, which led to back pain when walking. She now has back pain. Pt reports that she has been walking less , due to busy. States no symptoms. Wants to be able to walk correctly. Has no symptoms currently. States that she thinks has more discomfort when walking up hill. Restarted walking 3 weeks ago, L knee pain. She has less pain as she walks, after 15 minutes. She reports balance is worse. She has knee pain also when going down stairs. Knee pain started gradually 6 months ago, until a month ago when she contacted doctor; denies MARY. In September, she went to [employer]; bought a knee pad, which made no difference. Currently reports that her back pain has resolved. Was lifting sand bags and deck umbrella. Last time she had back pain was 2 weeks ago; started at end of september. Regarding balance: cataract surgery (near>far) which throws off balance; reports no falls but has to walk on uneven surfaces on ground and many stairs. Lives alone. 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 Patient reports she went to a strength exercise class this morning, did some comfortable exercises. SLS right and left LE without UE use 15 + with LOB post 3 seconds when visual scanning added PT-OP-D Balance Start: 11/22/23 11:17 Freq: Status: Active Protocol: Document 11/22/23 11:18 NM (Rec: 11/22/23 15:49 NM [id number]) Balance Tests mCTSIB mCTSIB Position 1 EO, stable: 30 sec mCTSIB Position 2 EC, stable: 10 sec mCTSIB Position 3 EO, foam: 12 sec mCTSIB Position 4 EC, foam: 5 sec Single Limb Standing Single Limb- Right 8 sec Single Limb- Left 5 sec Tandem Tandem Standing 3 sec but requires help to step PT-OP-E Functional Tests Start: 11/22/23 11:17 Freq: Status: Active Protocol: Document 11/22/23 11:18 NM (Rec: 11/22/23 12:06 NM [id number]) Functional Tests 30 Second Sit to Stand Test Score 15 Dynamic Gait Index (DGI) Score Five Times Sit to Stand Test Score 8 sec PT-OP-F Manual Assessment Start: 11/22/23 11:17 Freq: Status: Active Protocol: Document 11/22/23 11:18 NM (Rec: 11/22/23 12:06 NM [id number]) Manual Assessments Soft Tissue Assessment Soft Tissue Mobility Assessment Increased hamstring length bilaterally, tight L ITB. Trunk shortness and due to scoliosis Joint Mobility Assessment Joint Mobility Assessment No ligamentous instability of L knee. Hypomobile lumbar spine with P-A springing PT-OP-G Mobility & Gait Start: 11/22/23 11:17 Freq: Status: Active Protocol: Document 11/22/23 11:18 NM (Rec: 11/22/23 12:06 NM [id number]) OP Gait Assessment Gait Distance (Feet) 300 Assistive Devices Assistive Device Gait Belt Gait Deviations General Gait Pattern Antalgic,Decreased Stride Length,Decreased Feet Clearance,Flexed Trunk Factors Limiting Gait Function Factors Limiting Gait Function Decreased Activity Tolerance, Pain Comments Gait Comments Demos B foot ER and trunk has tendency to lean L Stair Climbing Evaluation Comments Stair Climbing Comments rail, ER, pain near paterlla medial PT-OP-J Posture/Palpation/Skin Start: 11/22/23 11:17 Freq: Status: Active Protocol: Document 11/22/23 11:18 NM (Rec: 11/22/23 12:06 NM [id number]) Posture Evaluation Position Standing T-Spine Posture Flexible Scoliosis on (R), Increased Kyphosis Thorax Posture (R) Prominent L-Spine Posture Increased Lordosis,Fixed Scoliosis on (L) Shoulder Posture (L) Elevated Pelvis Posture Anteriorly Tilted,(R) Iliac Crest Superior Weight Distribution Balanced Knee Posture (L) Genu Valgus,(R) Genu Valgus Patellar Posture (L) Superior,(R) Superior,(L) Laterally Tilted Ankle/Foot Posture (L) Pronated,(R) Pronated Comments Posture Comments rib hump Palpation Assessment Location lumbar spine Palpation Details Increased paraspinals tightness Mild tenderness along PSIS/SIJ L knee Palpation Details No tenderness to palpation PT-OP-K Range of Motion Start: 11/22/23 11:17 Freq: Status: Active Protocol: Document 11/22/23 11:18 NM (Rec: 11/22/23 12:06 NM [id number]) Lumbar Spine Range of Motion Lumbar Spine Active Percentage Flexion 100 Extension 100 Lateral Flexion Left 75 Lateral Flexion Right 100 Knee Goniometric Range of Motion Knee Right Flexion Active (degrees) 135 Hyper-Extension Active 2 Comments HS 170 deg Left Flexion Active (degrees) 130 Hyper-Extension Active 2 Comments HS 158 PT-OP-L Special Tests Start: 11/22/23 11:17 Freq: Status: Active Protocol: Document 11/22/23 11:18 NM (Rec: 11/22/23 12:06 NM [id number]) Special Tests Knee Special Tests Tammie's Test Test Results + PT-OP-M Strength Start: 11/22/23 11:17 Freq: Status: Active Protocol: Document 11/22/23 11:18 NM (Rec: 11/22/23 12:06 NM [id number]) Trunk Strength Trunk Manual Muscle Testing Flexion 4 Good Extension 4 Good Rotation Left 4 Good Rotation Right 4 Good Lateral Flexion Left 4 Good Lateral Flexion Right 4 Good Comments pain free Hip Strength Hip Manual Muscle Testing Right Flexion (L2) 4 Good Extension (S1) 4 Good Abduction 4 Good Adduction 4 Good External Rotation 4 Good Internal Rotation 4 Good Left Flexion (L2) 4- Good- Extension (S1) 4- Good- Abduction 4- Good- Adduction 4- Good- External Rotation 4- Good- Internal Rotation 4- Good- Knee Strength Knee Manual Muscle Testing Right Flexion (S2) 4 Good Extension (L3) 4 Good Left Flexion (S2) 4- Good- Extension (L3) 4- Good- PT-OP-Q Treatments Start: 11/22/23 11:17 Freq: Status: Active Protocol: Document 11/28/23 10:33 AB (Rec: 11/28/23 12:11 AB [id number]) Gym Equipment Shuttle Balance red Details feet on 4's, stagger, mini squat Comments with head turns and visual scanning during stagger stance and feet on 4-s, CGA Therapeutic Exercises Sitting Exercises seated hip abduction with band Side bilateral Resistance level 3 light green band Reps/Minutes one minute X 1 and 2X 15 Standing Exercises bilateral heel raise Reps/Minutes X10 Comments Pt ed importance of lowering heels to floor slow for controlling FWD moment hip flexor stretch Standing Exercise Name one UE support to HEP Reps/Minutes 60 seconds X 2 each LE Comments Verbal and visual cues and addit verbal cues for UE support squat with band Standing Exercise Name squat 1/3 to chair Reps/Minutes X10 Comments verbal and visual cues, reports no knee pain * Performs in gym class per PT sit to stand with band Standing Exercise Name To HEP Resistance level 3 light green band Reps/Minutes X5 Comments reports medial left knee pain 5th repetition Neuro Re-Education Treatment Balance Activities blue cushion Details with head turns and eyes closed Reps/Duration one minute Comments CGA hands above parallel bars Hurdles Reps/Duration 10 feet X 4 Comments CGA hands above bars SLS Reps/Duration 4 min Comments with visual scanning and head turns CGA hands above parallel bars tandem stepping Details with and without visual scanning, increased emphasist on head mvt Reps/Duration 10 feet X 6 Comments CGA hands above bars PT-OP-T Assessment and Plan Start: 11/22/23 11:17 Freq: Status: Active Protocol: Document 11/28/23 10:33 AB (Rec: 11/28/23 12:11 AB [id number]) Physical Therapy Assessment Goals Four Impairment balance Short Term Goal (STG) Pt will be able to maintain tandem stance at least 10 seconds or single leg stance at least 10 seconds without UE assistance in order to demonstrate improved hip/core strength and balance during gait STG Duration 6 weeks Fpc Goal (LTG) Pt will be able to maintain tandem stance at least 30 seconds or single leg stance at least 30 seconds without UE assistance in order to demonstrate improved hip/core strength and balance during gait LTG Duration 12 weeks Three Impairment trunk strength Short Term Goal (STG) Pt will be educated on core bracing, hip hinge, and body mechanics when picking up objects or lifting objects to decrease back pain STG Duration 6 weeks Fpc Goal (LTG) Pt will improve global trunk strength MMT to >4/5 MMT in order to demonstrate improved ability to brace core during functional ADLs, including lifting objects LTG Duration 12 weeks Two Impairment gait Short Term Goal (STG) Pt will report no increase in baseline pain with daily ambulation on flat surfaces in order to demonstrate improved pain management and hip strength STG Duration 6 weeks Fpc Goal (LTG) Pt will report no pain with ambulation on hills in order to demonstrate improved pain management and hip strength LTG Duration 12 weeks One Impairment stairs Short Term Goal (STG) Pt will be able to perform at least 10 step ups on 6 step without increase in baseline pain in order to demonstrate improved BLE strength, pain management, and household mobility STG Duration 6 weeks Fpc Goal (LTG) Pt will report no increase in baseline pain with at least 8 stairs with or without rail in order to demonstrate improved BLE strength, pain management , and household mobility LTG Duration 12 weeks Assessment Summary Assessment Greta reports having no pain end of session. Increased balance reactions with head turns noted throughout session . Physical Therapy Plan Frequency and Duration Frequency of Treatment 1-2x/wk Duration of treatment (weeks) 12 Plan of Care Start Date 11/22/23 Plan of Care End Date 09/06/24 Next Visit Focus/Plan Next Note Type Treatment Note Next Visit Plan supine HS stretch, review s/l hp abd, LAQ, Flexibility and core strength (flexion bias) Hip strengthening: HS, glutes, LAQ,, hip 3 way, Balance training: SLS with support and decrease support, stable > unstable surface, narrow MELISSA fall risk, osteoporosis
--- NOTE | 2023-12-03 16:23 | PT.OTN ---
Current Diagnoses Dorsalgia, unspecified (12/03/23) Other lack of coordination (12/03/23) Weakness (12/03/23) Physical Therapy Treatment Note PT-OP-A Visit Information Start: 11/22/23 11:17 Freq: Status: Active Protocol: Document 12/03/23 12:54 AB (Rec: 12/03/23 16:23 AB [id number]) Out-Patient Physical Therapy Visit Information Visit Information Visit Type Treatment Note Visit Note Access Code [email or web address] Visit Start Time 14:34 Visit Stop Time 15:18 Visit Number 4 Number of GAS BLENDER Visits 2 Evaluation Information Evaluation Date 11/22/23 Precautions Precautions fall risk, osteoporosis PT-OP-B Current Condition Start: 11/22/23 11:17 Freq: Status: Active Protocol: Document 11/22/23 11:18 NM (Rec: 11/22/23 12:06 NM [id number]) Current Condition History of Current Condition Onset Date September 2023 Current Complaints pain, gait, stairs History of Current Condition Pt visited doctor 1 month ago during walking because of annoying pain in L knee. PCP said biomechanics are wrong. Gave her exercises: knees over toes knee flex, which led to back pain when walking. She now has back pain. Pt reports that she has been walking less , due to busy. States no symptoms. Wants to be able to walk correctly. Has no symptoms currently. States that she thinks has more discomfort when walking up hill. Restarted walking 3 weeks ago, L knee pain. She has less pain as she walks, after 15 minutes. She reports balance is worse. She has knee pain also when going down stairs. Knee pain started gradually 6 months ago, until a month ago when she contacted doctor; denies MARY. In September, she went to [employer]; bought a knee pad, which made no difference. Currently reports that her back pain has resolved. Was lifting sand bags and deck umbrella. Last time she had back pain was 2 weeks ago; started at end of september. Regarding balance: cataract surgery (near>far) which throws off balance; reports no falls but has to walk on uneven surfaces on ground and many stairs. Lives alone. 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 Patient reports she has texted someone who did some pruning for her to hire to help with gardening. PT-OP-D Balance Start: 11/22/23 11:17 Freq: Status: Active Protocol: Document 11/22/23 11:18 NM (Rec: 11/22/23 15:49 NM [id number]) Balance Tests mCTSIB mCTSIB Position 1 EO, stable: 30 sec mCTSIB Position 2 EC, stable: 10 sec mCTSIB Position 3 EO, foam: 12 sec mCTSIB Position 4 EC, foam: 5 sec Single Limb Standing Single Limb- Right 8 sec Single Limb- Left 5 sec Tandem Tandem Standing 3 sec but requires help to step PT-OP-E Functional Tests Start: 11/22/23 11:17 Freq: Status: Active Protocol: Document 11/22/23 11:18 NM (Rec: 11/22/23 12:06 NM [id number]) Functional Tests 30 Second Sit to Stand Test Score 15 Dynamic Gait Index (DGI) Score Five Times Sit to Stand Test Score 8 sec PT-OP-F Manual Assessment Start: 11/22/23 11:17 Freq: Status: Active Protocol: Document 11/22/23 11:18 NM (Rec: 11/22/23 12:06 NM [id number]) Manual Assessments Soft Tissue Assessment Soft Tissue Mobility Assessment Increased hamstring length bilaterally, tight L ITB. Trunk shortness and due to scoliosis Joint Mobility Assessment Joint Mobility Assessment No ligamentous instability of L knee. Hypomobile lumbar spine with P-A springing PT-OP-G Mobility & Gait Start: 11/22/23 11:17 Freq: Status: Active Protocol: Document 11/22/23 11:18 NM (Rec: 11/22/23 12:06 NM [id number]) OP Gait Assessment Gait Distance (Feet) 300 Assistive Devices Assistive Device Gait Belt Gait Deviations General Gait Pattern Antalgic,Decreased Stride Length,Decreased Feet Clearance,Flexed Trunk Factors Limiting Gait Function Factors Limiting Gait Function Decreased Activity Tolerance, Pain Comments Gait Comments Demos B foot ER and trunk has tendency to lean L Stair Climbing Evaluation Comments Stair Climbing Comments rail, ER, pain near paterlla medial PT-OP-J Posture/Palpation/Skin Start: 11/22/23 11:17 Freq: Status: Active Protocol: Document 11/22/23 11:18 NM (Rec: 11/22/23 12:06 NM [id number]) Posture Evaluation Position Standing T-Spine Posture Flexible Scoliosis on (R), Increased Kyphosis Thorax Posture (R) Prominent L-Spine Posture Increased Lordosis,Fixed Scoliosis on (L) Shoulder Posture (L) Elevated Pelvis Posture Anteriorly Tilted,(R) Iliac Crest Superior Weight Distribution Balanced Knee Posture (L) Genu Valgus,(R) Genu Valgus Patellar Posture (L) Superior,(R) Superior,(L) Laterally Tilted Ankle/Foot Posture (L) Pronated,(R) Pronated Comments Posture Comments rib hump Palpation Assessment Location lumbar spine Palpation Details Increased paraspinals tightness Mild tenderness along PSIS/SIJ L knee Palpation Details No tenderness to palpation PT-OP-K Range of Motion Start: 11/22/23 11:17 Freq: Status: Active Protocol: Document 11/22/23 11:18 NM (Rec: 11/22/23 12:06 NM [id number]) Lumbar Spine Range of Motion Lumbar Spine Active Percentage Flexion 100 Extension 100 Lateral Flexion Left 75 Lateral Flexion Right 100 Knee Goniometric Range of Motion Knee Right Flexion Active (degrees) 135 Hyper-Extension Active 2 Comments HS 170 deg Left Flexion Active (degrees) 130 Hyper-Extension Active 2 Comments HS 158 PT-OP-L Special Tests Start: 11/22/23 11:17 Freq: Status: Active Protocol: Document 11/22/23 11:18 NM (Rec: 11/22/23 12:06 NM [id number]) Special Tests Knee Special Tests Tammie's Test Test Results + PT-OP-M Strength Start: 11/22/23 11:17 Freq: Status: Active Protocol: Document 11/22/23 11:18 NM (Rec: 11/22/23 12:06 NM [id number]) Trunk Strength Trunk Manual Muscle Testing Flexion 4 Good Extension 4 Good Rotation Left 4 Good Rotation Right 4 Good Lateral Flexion Left 4 Good Lateral Flexion Right 4 Good Comments pain free Hip Strength Hip Manual Muscle Testing Right Flexion (L2) 4 Good Extension (S1) 4 Good Abduction 4 Good Adduction 4 Good External Rotation 4 Good Internal Rotation 4 Good Left Flexion (L2) 4- Good- Extension (S1) 4- Good- Abduction 4- Good- Adduction 4- Good- External Rotation 4- Good- Internal Rotation 4- Good- Knee Strength Knee Manual Muscle Testing Right Flexion (S2) 4 Good Extension (L3) 4 Good Left Flexion (S2) 4- Good- Extension (L3) 4- Good- PT-OP-Q Treatments Start: 11/22/23 11:17 Freq: Status: Active Protocol: Document 12/03/23 12:54 AB (Rec: 12/03/23 16:23 AB [id number]) Gym Equipment Shuttle Balance red Details feet on 4's, stagger, mini squat Comments with head turns and visual scanning during stagger stance and feet on 4-s, CGA Weight shift without UE use facing bar Therapeutic Exercises Supine Exercises hamstring stretch Supine Exercise Name from hooklying Side bilateral Reps/Minutes one min X 2 each LE TrA activation Supine Exercise Name 1. BKFO 2 heel slide/with alt UE raise Reps/Minutes 2X10 each Comments Verbal cues to brace as LE moves away from core tamara stretch Side bilateral Reps/Minutes 60 Sitting Exercises seated hip abduction with band Side bilateral Resistance level 3 light green band Reps/Minutes one minute X 1 Standing Exercises counter cat cow Standing Exercise Name modified Side bilateral Reps/Minutes X10 Comments VC to decreased head up/ increase lordosis to neutral Neuro Re-Education Treatment Balance Activities therapad step up Details hands above bars CGA Equipment pads doubled Reps/Duration X10 each LE blue cushion Details therapad stagger Reps/Duration 15 seconds Comments CGA hands above parallel bars hands above bars Hurdles Reps/Duration 10 feet X 6 Comments CGA hands above bars PT-OP-T Assessment and Plan Start: 11/22/23 11:17 Freq: Status: Active Protocol: Document 12/03/23 12:54 AB (Rec: 12/03/23 16:23 AB [id number]) Physical Therapy Assessment Goals Four Impairment balance Short Term Goal (STG) Pt will be able to maintain tandem stance at least 10 seconds or single leg stance at least 10 seconds without UE assistance in order to demonstrate improved hip/core strength and balance during gait STG Duration 6 weeks [employer] Goal (LTG) Pt will be able to maintain tandem stance at least 30 seconds or single leg stance at least 30 seconds without UE assistance in order to demonstrate improved hip/core strength and balance during gait LTG Duration 12 weeks Three Impairment trunk strength Short Term Goal (STG) Pt will be educated on core bracing, hip hinge, and body mechanics when picking up objects or lifting objects to decrease back pain STG Duration 6 weeks [facility] Goal (LTG) Pt will improve global trunk strength MMT to >4/5 MMT in order to demonstrate improved ability to brace core during functional ADLs, including lifting objects LTG Duration 12 weeks Two Impairment gait Short Term Goal (STG) Pt will report no increase in baseline pain with daily ambulation on flat surfaces in order to demonstrate improved pain management and hip strength STG Duration 6 weeks [employer] Goal (LTG) Pt will report no pain with ambulation on hills in order to demonstrate improved pain management and hip strength LTG Duration 12 weeks One Impairment stairs Short Term Goal (STG) Pt will be able to perform at least 10 step ups on 6 step without increase in baseline pain in order to demonstrate improved BLE strength, pain management, and household mobility STG Duration 6 weeks [facility] Goal (LTG) Pt will report no increase in baseline pain with at least 8 stairs with or without rail in order to demonstrate improved BLE strength, pain management , and household mobility LTG Duration 12 weeks Assessment Summary Assessment Greta reports having no pain end of session. Greta into session with reports of able to walk 1.5 miles with friends , without pain, but reports increased fatigue. Physical Therapy Plan Frequency and Duration Frequency of Treatment 1-2x/wk Duration of treatment (weeks) 12 Plan of Care Start Date 11/22/23 Plan of Care End Date 02/15/24 Next Visit Focus/Plan Next Note Type Treatment Note Next Visit Plan Possibly add weight to squats, review s/l hp abd, LAQ, Flexibility and core strength (flexion bias) Hip strengthening: HS, glutes, LAQ,, hip 3 way, Balance training: SLS with support and decrease support, stable > unstable surface, narrow MELISSA fall risk, osteoporosis
--- NOTE | 2023-12-05 12:45 | PT.OTN ---
Current Diagnoses Dorsalgia, unspecified (12/05/23) Other lack of coordination (12/05/23) Weakness (12/05/23) Physical Therapy Treatment Note PT-OP-A Visit Information Start: 11/22/23 11:17 Freq: Status: Active Protocol: Document 12/05/23 10:32 NM (Rec: 12/05/23 11:16 NM [id number]) Out-Patient Physical Therapy Visit Information Visit Information Visit Type Treatment Note Visit Start Time 10:33 Visit Stop Time 11:13 Visit Number 5 Evaluation Information Evaluation Date 11/22/23 PT-OP-B Current Condition Start: 11/22/23 11:17 Freq: Status: Active Protocol: Document 11/22/23 11:18 NM (Rec: 11/22/23 12:06 NM [id number]) Current Condition History of Current Condition Onset Date September 2023 Current Complaints pain, gait, stairs History of Current Condition Pt visited doctor 1 month ago during walking because of annoying pain in L knee. PCP said biomechanics are wrong. Gave her exercises: knees over toes knee flex, which led to back pain when walking. She now has back pain. Pt reports that she has been walking less , due to busy. States no symptoms. Wants to be able to walk correctly. Has no symptoms currently. States that she thinks has more discomfort when walking up hill. Restarted walking 3 weeks ago, L knee pain. She has less pain as she walks, after 15 minutes. She reports balance is worse. She has knee pain also when going down stairs. Knee pain started gradually 6 months ago, until a month ago when she contacted doctor; stefanie HERNANDEZ. In September, she went to [facility]; bought a knee pad, which made no difference. Currently reports that her back pain has resolved. Was lifting sand bags and deck umbrella. Last time she had back pain was 2 weeks ago; started at end of september. Regarding balance: cataract surgery (near>far) which throws off balance; reports no falls but has to walk on uneven surfaces on ground and many stairs. Lives alone. 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 [employer] Baseline Function- Other 2 story home, lives on 1 floor Current Functional Impairments (Reported) Functional Limitations- Mobility/Gait 2 mi [facility] stairs (uses rails to assist up and down, pain with descent ) Functional Limitations- Recreation/ floor transfers, gardening ( Hobbies kneeling ok) PT-OP-C Subjective Start: 11/22/23 11:17 Freq: Status: Active Protocol: Document 12/05/23 10:32 NM (Rec: 12/05/23 11:16 NM [id number]) OP-PT Subjective Patient Comments Patient Comments Pt reports that she went walking on Sunday at [facility], no pain in her knee. No back pain. She has been compliant with exercises but sidelying hip abduction is most challenging PT-OP-D Balance Start: 11/22/23 11:17 Freq: Status: Active Protocol: Document 11/22/23 11:18 NM (Rec: 11/22/23 15:49 NM [id number]) Balance Tests mCTSIB mCTSIB Position 1 EO, stable: 30 sec mCTSIB Position 2 EC, stable: 10 sec mCTSIB Position 3 EO, foam: 12 sec mCTSIB Position 4 EC, foam: 5 sec Single Limb Standing Single Limb- Right 8 sec Single Limb- Left 5 sec Tandem Tandem Standing 3 sec but requires help to step PT-OP-E Functional Tests Start: 11/22/23 11:17 Freq: Status: Active Protocol: Document 11/22/23 11:18 NM (Rec: 11/22/23 12:06 NM [id number]) Functional Tests 30 Second Sit to Stand Test Score 15 Dynamic Gait Index (DGI) Score Five Times Sit to Stand Test Score 8 sec PT-OP-F Manual Assessment Start: 11/22/23 11:17 Freq: Status: Active Protocol: Document 11/22/23 11:18 NM (Rec: 11/22/23 12:06 NM [id number]) Manual Assessments Soft Tissue Assessment Soft Tissue Mobility Assessment Increased hamstring length bilaterally, tight L ITB. Trunk shortness and due to scoliosis Joint Mobility Assessment Joint Mobility Assessment No ligamentous instability of L knee. Hypomobile lumbar spine with P-A springing PT-OP-G Mobility & Gait Start: 11/22/23 11:17 Freq: Status: Active Protocol: Document 11/22/23 11:18 NM (Rec: 11/22/23 12:06 NM [id number]) OP Gait Assessment Gait Distance (Feet) 300 Assistive Devices Assistive Device Gait Belt Gait Deviations General Gait Pattern Antalgic,Decreased Stride Length,Decreased Feet Clearance,Flexed Trunk Factors Limiting Gait Function Factors Limiting Gait Function Decreased Activity Tolerance, Pain Comments Gait Comments Demos B foot ER and trunk has tendency to lean L Stair Climbing Evaluation Comments Stair Climbing Comments rail, ER, pain near paterlla medial PT-OP-J Posture/Palpation/Skin Start: 11/22/23 11:17 Freq: Status: Active Protocol: Document 11/22/23 11:18 NM (Rec: 11/22/23 12:06 NM [id number]) Posture Evaluation Position Standing T-Spine Posture Flexible Scoliosis on (R), Increased Kyphosis Thorax Posture (R) Prominent L-Spine Posture Increased Lordosis,Fixed Scoliosis on (L) Shoulder Posture (L) Elevated Pelvis Posture Anteriorly Tilted,(R) Iliac Crest Superior Weight Distribution Balanced Knee Posture (L) Genu Valgus,(R) Genu Valgus Patellar Posture (L) Superior,(R) Superior,(L) Laterally Tilted Ankle/Foot Posture (L) Pronated,(R) Pronated Comments Posture Comments rib hump Palpation Assessment Location lumbar spine Palpation Details Increased paraspinals tightness Mild tenderness along PSIS/SIJ L knee Palpation Details No tenderness to palpation PT-OP-K Range of Motion Start: 11/22/23 11:17 Freq: Status: Active Protocol: Document 11/22/23 11:18 NM (Rec: 11/22/23 12:06 NM [id number]) Lumbar Spine Range of Motion Lumbar Spine Active Percentage Flexion 100 Extension 100 Lateral Flexion Left 75 Lateral Flexion Right 100 Knee Goniometric Range of Motion Knee Right Flexion Active (degrees) 135 Hyper-Extension Active 2 Comments HS 170 deg Left Flexion Active (degrees) 130 Hyper-Extension Active 2 Comments HS 158 PT-OP-L Special Tests Start: 11/22/23 11:17 Freq: Status: Active Protocol: Document 11/22/23 11:18 NM (Rec: 11/22/23 12:06 NM [id number]) Special Tests Knee Special Tests Tammie's Test Test Results + PT-OP-M Strength Start: 11/22/23 11:17 Freq: Status: Active Protocol: Document 11/22/23 11:18 NM (Rec: 11/22/23 12:06 NM [id number]) Trunk Strength Trunk Manual Muscle Testing Flexion 4 Good Extension 4 Good Rotation Left 4 Good Rotation Right 4 Good Lateral Flexion Left 4 Good Lateral Flexion Right 4 Good Comments pain free Hip Strength Hip Manual Muscle Testing Right Flexion (L2) 4 Good Extension (S1) 4 Good Abduction 4 Good Adduction 4 Good External Rotation 4 Good Internal Rotation 4 Good Left Flexion (L2) 4- Good- Extension (S1) 4- Good- Abduction 4- Good- Adduction 4- Good- External Rotation 4- Good- Internal Rotation 4- Good- Knee Strength Knee Manual Muscle Testing Right Flexion (S2) 4 Good Extension (L3) 4 Good Left Flexion (S2) 4- Good- Extension (L3) 4- Good- PT-OP-Q Treatments Start: 11/22/23 11:17 Freq: Status: Active Protocol: Document 12/05/23 10:32 NM (Rec: 12/05/23 11:16 NM [id number]) Gym Equipment Shuttle Recovery squat Details B squat; no knee pain; level 2 band to limit valgus w/ end range flex Resistance 75# (3 navy) Reps/Time 3x12 Therapeutic Exercises Sidelying Exercises hip abduction Sidelying Exercise Name HEP review Side bilateral Reps/Minutes 10 ea Comments cued for form Standing Exercises eccentric step down Standing Exercise Name 4 Side bilateral Reps/Minutes 10 ea Comments cued hip hinge, knee alignment , pain free when knee behind toes lateral touch down Side bilateral Resistance AROM Equipment Used 1 hand support for balance, 4 step Reps/Minutes 2x10 ea, 3 lower and raise ea direction, hand on hip for tactile cue Comments cued for form, improved with verbal cues and tactile form pallof press Standing Exercise Name walkout only Side bilateral Resistance level 1 band Reps/Minutes 2x5 Comments cued for form, alignment; improved with reps side steps Standing Exercise Name trialed in PT Side bilateral Resistance level 1 band around ankles> thighs Reps/Minutes 2x15 ft Comments reports minimal glute med activation without core bracing Other Exercises hip extension Other Exercise Name short kneel > tall kneel at plinth Side bilateral Reps/Minutes 10 Comments cued glute squeeze w/ hip ext PT-OP-T Assessment and Plan Start: 11/22/23 11:17 Freq: Status: Active Protocol: Document 12/05/23 10:32 NM (Rec: 12/05/23 11:16 NM [id number]) Physical Therapy Assessment Goals Four Impairment balance Short Term Goal (STG) Pt will be able to maintain tandem stance at least 10 seconds or single leg stance at least 10 seconds without UE assistance in order to demonstrate improved hip/core strength and balance during gait STG Duration 6 weeks [facility] Goal (LTG) Pt will be able to maintain tandem stance at least 30 seconds or single leg stance at least 30 seconds without UE assistance in order to demonstrate improved hip/core strength and balance during gait LTG Duration 12 weeks Three Impairment trunk strength Short Term Goal (STG) Pt will be educated on core bracing, hip hinge, and body mechanics when picking up objects or lifting objects to decrease back pain STG Duration 6 weeks [employer] Goal (LTG) Pt will improve global trunk strength MMT to >4/5 MMT in order to demonstrate improved ability to brace core during functional ADLs, including lifting objects LTG Duration 12 weeks Two Impairment gait Short Term Goal (STG) Pt will report no increase in baseline pain with daily ambulation on flat surfaces in order to demonstrate improved pain management and hip strength STG Duration 6 weeks [employer] Goal (LTG) Pt will report no pain with ambulation on hills in order to demonstrate improved pain management and hip strength LTG Duration 12 weeks One Impairment stairs Short Term Goal (STG) Pt will be able to perform at least 10 step ups on 6 step without increase in baseline pain in order to demonstrate improved BLE strength, pain management, and household mobility STG Duration 6 weeks [facility] Goal (LTG) Pt will report no increase in baseline pain with at least 8 stairs with or without rail in order to demonstrate improved BLE strength, pain management , and household mobility LTG Duration 12 weeks Assessment Summary Assessment Pt tolerated session well and continues to make progressions with PT. She has good feedback to therapeutic exercise and is pain free in her knee and back. Reviewed sidelying abduction as pt has several questions, which required cueing for form. Trialed side steps as alternative exercise, but she tolerated sidelying better. Initiated pallof press as anti -rotation trunk exercise, improved form with reps but challenging. Progressed to 4 lateral and forward eccentric step downs with hand support. Pt cued moderately for form, has no knee pain if good glute activation and maintains alignment of knee at or behind toes. Pt would benefit from skilled PT for progressive BLE strengthening and balance training in order to improve symptom management and decrease fall risk. Physical Therapy Plan Frequency and Duration Frequency of Treatment 1-2x/wk Duration of treatment (weeks) 12 Plan of Care Start Date 11/22/23 Plan of Care End Date 02/15/24 Therapeutic Interventions Therapeutic Interventions Balance Training,Gait Training ,Home Exercise Program,Joint Mobilizations,Manual Therapy, Neuromuscular Re-education, Orthotic/Prosthetic Management ,Patient/Caregiver Education, Self-Care/Home Management,Soft Tissue Mobilization,Taping, Therapeutic Activities, Therapeutic Exercises Modalities Cold Pack/Ice Massage,Electric Stimulation,Hot Packs, Ultrasound Other Therapeutic Interventions No grade IV mobilizations Pelvic realignment Next Visit Focus/Plan Next Note Type Treatment Note Next Visit Plan Continue with hip and quad strength. Review 4 eccentric and lateral step downs, trial step ups, cont leg press, side steps, pallof, balance Flexibility and core strength (flexion bias) Hip strengthening: HS, glutes, LAQ,, hip 3 way, Balance training: SLS with support and decrease support, stable > unstable surface, narrow MELISSA fall risk, osteoporosis
--- NOTE | 2024-01-07 15:38 | PT.OTN ---
Current Diagnoses Dorsalgia, unspecified (01/07/24) Other lack of coordination (01/07/24) Weakness (01/07/24) Physical Therapy Treatment Note PT-OP-A Visit Information Start: 11/22/23 11:17 Freq: Status: Active Protocol: Document 01/07/24 13:01 NM (Rec: 01/07/24 13:48 NM [id number]) Out-Patient Physical Therapy Visit Information Visit Information Visit Type Progress Note Visit Start Time 13:02 Visit Stop Time 13:42 Visit Number 6 Evaluation Information Evaluation Date 11/22/23 Precautions Precautions fall risk, osteoporosis PT-OP-B Current Condition Start: 11/22/23 11:17 Freq: Status: Active Protocol: Document 11/22/23 11:18 NM (Rec: 11/22/23 12:06 NM [id number]) Current Condition History of Current Condition Onset Date September 2023 Current Complaints pain, gait, stairs History of Current Condition Pt visited doctor 1 month ago during walking because of annoying pain in L knee. PCP said biomechanics are wrong. Gave her exercises: knees over toes knee flex, which led to back pain when walking. She now has back pain. Pt reports that she has been walking less , due to busy. States no symptoms. Wants to be able to walk correctly. Has no symptoms currently. States that she thinks has more discomfort when walking up hill. Restarted walking 3 weeks ago, L knee pain. She has less pain as she walks, after 15 minutes. She reports balance is worse. She has knee pain also when going down stairs. Knee pain started gradually 6 months ago, until a month ago when she contacted doctor; stefanie HERNANDEZ. In September, she went to [facility]; bought a knee pad, which made no difference. Currently reports that her back pain has resolved. Was lifting sand bags and deck umbrella. Last time she had back pain was 2 weeks ago; started at end of september. Regarding balance: cataract surgery (near>far) which throws off balance; reports no falls but has to walk on uneven surfaces on ground and many stairs. Lives alone. 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 She went [place], walked 2-3 mi/day; states no knee pain. She reports that she only feels like she only has issues now with her balance. Patient Reported Progress Improving PT-OP-D Balance Start: 11/22/23 11:17 Freq: Status: Active Protocol: Document 11/22/23 11:18 NM (Rec: 11/22/23 15:49 NM [id number]) Balance Tests mCTSIB mCTSIB Position 1 EO, stable: 30 sec mCTSIB Position 2 EC, stable: 10 sec mCTSIB Position 3 EO, foam: 12 sec mCTSIB Position 4 EC, foam: 5 sec Single Limb Standing Single Limb- Right 8 sec Single Limb- Left 5 sec Tandem Tandem Standing 3 sec but requires help to step PT-OP-E Functional Tests Start: 11/22/23 11:17 Freq: Status: Active Protocol: Document 11/22/23 11:18 NM (Rec: 11/22/23 12:06 NM [id number]) Functional Tests 30 Second Sit to Stand Test Score 15 Dynamic Gait Index (DGI) Score Five Times Sit to Stand Test Score 8 sec PT-OP-F Manual Assessment Start: 11/22/23 11:17 Freq: Status: Active Protocol: Document 11/22/23 11:18 NM (Rec: 11/22/23 12:06 NM [id number]) Manual Assessments Soft Tissue Assessment Soft Tissue Mobility Assessment Increased hamstring length bilaterally, tight L ITB. Trunk shortness and due to scoliosis Joint Mobility Assessment Joint Mobility Assessment No ligamentous instability of L knee. Hypomobile lumbar spine with P-A springing PT-OP-G Mobility & Gait Start: 11/22/23 11:17 Freq: Status: Active Protocol: Document 11/22/23 11:18 NM (Rec: 11/22/23 12:06 NM [id number]) OP Gait Assessment Gait Distance (Feet) 300 Assistive Devices Assistive Device Gait Belt Gait Deviations General Gait Pattern Antalgic,Decreased Stride Length,Decreased Feet Clearance,Flexed Trunk Factors Limiting Gait Function Factors Limiting Gait Function Decreased Activity Tolerance, Pain Comments Gait Comments Demos B foot ER and trunk has tendency to lean L Stair Climbing Evaluation Comments Stair Climbing Comments rail, ER, pain near paterlla medial PT-OP-J Posture/Palpation/Skin Start: 11/22/23 11:17 Freq: Status: Active Protocol: Document 11/22/23 11:18 NM (Rec: 11/22/23 12:06 NM [id number]) Posture Evaluation Position Standing T-Spine Posture Flexible Scoliosis on (R), Increased Kyphosis Thorax Posture (R) Prominent L-Spine Posture Increased Lordosis,Fixed Scoliosis on (L) Shoulder Posture (L) Elevated Pelvis Posture Anteriorly Tilted,(R) Iliac Crest Superior Weight Distribution Balanced Knee Posture (L) Genu Valgus,(R) Genu Valgus Patellar Posture (L) Superior,(R) Superior,(L) Laterally Tilted Ankle/Foot Posture (L) Pronated,(R) Pronated Comments Posture Comments rib hump Palpation Assessment Location lumbar spine Palpation Details Increased paraspinals tightness Mild tenderness along PSIS/SIJ L knee Palpation Details No tenderness to palpation PT-OP-K Range of Motion Start: 11/22/23 11:17 Freq: Status: Active Protocol: Document 11/22/23 11:18 NM (Rec: 11/22/23 12:06 NM [id number]) Lumbar Spine Range of Motion Lumbar Spine Active Percentage Flexion 100 Extension 100 Lateral Flexion Left 75 Lateral Flexion Right 100 Knee Goniometric Range of Motion Knee Right Flexion Active (degrees) 135 Hyper-Extension Active 2 Comments HS 170 deg Left Flexion Active (degrees) 130 Hyper-Extension Active 2 Comments HS 158 PT-OP-L Special Tests Start: 11/22/23 11:17 Freq: Status: Active Protocol: Document 11/22/23 11:18 NM (Rec: 11/22/23 12:06 NM [id number]) Special Tests Knee Special Tests Tammie's Test Test Results + PT-OP-M Strength Start: 11/22/23 11:17 Freq: Status: Active Protocol: Document 01/07/24 13:01 NM (Rec: 01/07/24 13:48 NM [id number]) Hip Strength Hip Manual Muscle Testing Right Flexion (L2) 4+ Good+ Extension (S1) 4+ Good+ Abduction 4 Good Adduction 4+ Good+ External Rotation 4+ Good+ Internal Rotation 4+ Good+ Comments 01/07/24: 4+/5 for all except abduction Left Flexion (L2) 4+ Good+ Extension (S1) 4 Good Abduction 4 Good Adduction 4+ Good+ External Rotation 4+ Good+ Internal Rotation 4+ Good+ Comments 01/07/24: 4+/5 for all except abduction and hip ext Knee Strength Knee Manual Muscle Testing Right Flexion (S2) 4+ Good+ Extension (L3) 4+ Good+ Comments 01/07/24: 4+/5 Left Flexion (S2) 4 Good Extension (L3) 4 Good Comments 01/07/24: 4/5, pain free PT-OP-Q Treatments Start: 11/22/23 11:17 Freq: Status: Active Protocol: Document 01/07/24 13:01 NM (Rec: 01/07/24 13:48 NM [id number]) Therapeutic Exercises Standing Exercises monster walk Standing Exercise Name fwd and retro Side bilateral Resistance level 2 band at thighs Reps/Minutes 2x15 ft ea Comments pain free lateral step up Standing Exercise Name 6 > 8 Side bilateral Resistance AROM Reps/Minutes 10 ea leg at 6, 10 ea leg at 8 Comments no hand support deadlift Standing Exercise Name 1. hip hinge, 2. deadlift with weight Side bilateral Resistance AROM > 3# db ea hand Equipment Used dowel Reps/Minutes 10, 10 w/ 3# weights eccentric step down Standing Exercise Name 6 step Side bilateral Reps/Minutes 2x15 ea Comments improved aligment and level hips; pain free lateral touch down Side bilateral Resistance AROM Equipment Used 6 step, 1 hand support for balance Reps/Minutes 15 ea Therapeutic Activity Therapeutic Activity hip hinge Reps/Minutes 10 minutes Comments 1. with foam roller, 2 min 2. with dowel, 2x10- requires increased time for cues 3. picking up crate, 5 w/o resistance and 2x10 w/ 6# wt w / increased time Tactile, verbal and visual cues to prevent spinal flexion . Improved w/ reps Neuro Re-Education Treatment Balance Activities Narrow MELISSA Surface close SBA Comments 1. tandem stance for time, 20 2. tandem stance for time with prn hand support, 30 ea SLS Surface close SBA Reps/Duration 2x30 ea leg Comments stance for time tandem stepping Surface close SBA Equipment hands hovering Reps/Duration 2x10 ft Comments prn CGA to steady but no LOB. improved following lengthened stance time PT-OP-T Assessment and Plan Start: 11/22/23 11:17 Freq: Status: Active Protocol: Document 01/07/24 13:01 NM (Rec: 01/07/24 13:48 NM [id number]) Physical Therapy Assessment Goals Four Impairment balance Short Term Goal (STG) Pt will be able to maintain tandem stance at least 10 seconds or single leg stance at least 10 seconds without UE assistance in order to demonstrate improved hip/core strength and balance during gait 01/07/24: 20 seconds STG Duration 6 weeks MET Assisted Goal (LTG) Pt will be able to maintain tandem stance at least 30 seconds or single leg stance at least 30 seconds without UE assistance in order to demonstrate improved hip/core strength and balance during gait LTG Duration 12 weeks Three Impairment trunk strength Short Term Goal (STG) Pt will be educated on core bracing, hip hinge, and body mechanics when picking up objects or lifting objects to decrease back pain 01/07/24: educated in previous session on core bracing; performed deadlifts today without resistance and with resistance; requires cueing for form but improved with reps STG Duration 6 weeks MET Assisted Goal (LTG) Pt will improve global trunk strength MMT to >4/5 MMT in order to demonstrate improved ability to brace core during functional ADLs, including lifting objects LTG Duration 12 weeks Two Impairment gait Short Term Goal (STG) Pt will report no increase in baseline pain with daily ambulation on flat surfaces in order to demonstrate improved pain management and hip strength 01/07/24: pt reports no knee pain with ambulation 2-3 mi on flat or hilly surfaces; returned to daily walks at [facility] STG Duration 6 weeks Conventional Underwriter Goal (LTG) Pt will report no pain with ambulation on hills in order to demonstrate improved pain management and hip strength 01/07/24: pt reports no knee pain with ambulation 2-3 mi on flat or hilly surfaces LTG Duration 12 weeks MET One Impairment stairs Short Term Goal (STG) Pt will be able to perform at least 10 step ups on 6 step without increase in baseline pain in order to demonstrate improved BLE strength, pain management, and household mobility 01/07/24: can perform 2x10 step ups x6 step STG Duration 6 weeks MET Conventional Underwriter Goal (LTG) Pt will report no increase in baseline pain with at least 8 stairs with or without rail in order to demonstrate improved BLE strength, pain management , and household mobility LTG Duration 12 weeks Progress Towards Goals Progress Towards Goals Progressing Toward Goals,Goals Met Progress Comments Met ambulation goal Assessment Summary Assessment Pt tolerated session well. Demonstrates improved control with step up, no knee pain or discomfort. Progressed to monster walk with band above thighs. Good backward stepping without any LOB or increased sway. Pt able to perform with squat positioning. Introduced hip hinge to promote improved body mechanics and deadlift for glute strengthening. Requires moderate cueing initially for correct form to limit trunk flexion and to promote more hinge. However, improved with reps and tactile cueing. Pt able to perform with better form using small resistance. Trialed with small crate to simulate lifting laundry basket or [employer] supplies. Continued with balance training. Pt continues to be challenged by narrow MELISSA and single leg stance; close SBA for all static balance with prn hand support for steady. Improved stability compared to previous attempts Physical Therapy Plan Frequency and Duration Frequency of Treatment 1-2x/wk Duration of treatment (weeks) 12 Plan of Care Start Date 11/22/23 Plan of Care End Date 02/15/24 Therapeutic Interventions Therapeutic Interventions Balance Training,Gait Training ,Home Exercise Program,Joint Mobilizations,Manual Therapy, Neuromuscular Re-education, Orthotic/Prosthetic Management ,Patient/Caregiver Education, Self-Care/Home Management,Soft Tissue Mobilization,Taping, Therapeutic Activities, Therapeutic Exercises Modalities Cold Pack/Ice Massage,Electric Stimulation,Hot Packs, Ultrasound Other Therapeutic Interventions No grade IV mobilizations Pelvic realignment Next Visit Focus/Plan Next Note Type Treatment Note Next Visit Plan review hip hinge, single leg press. Balance: unstable surfaces, floor transfers via half kneel, no visual input, pallof w/ overhead, hip 3 way, 6 eccentric step down and 8 step up, Y drill Hip strengthening: HS, glutes, LAQ,, hip 3 way, Balance training: SLS with support and decrease support, stable > unstable surface, narrow MELISSA fall risk, osteoporosis
--- NOTE | 2024-01-14 16:10 | PT.OTN ---
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 PCP said biomechanics are wrong. Gave her exercises: knees over toes knee flex, which led to back pain when walking. She now has back pain. Pt reports that she has been walking less , due to busy. States no symptoms. Wants to be able to walk correctly. Has no symptoms currently. States that she thinks has more discomfort when walking up hill. Restarted walking 3 weeks ago, L knee pain. She has less pain as she walks, after 15 minutes. She reports balance is worse. She has knee pain also when going down stairs. Knee pain started gradually 6 months ago, until a month ago when she contacted doctor; denies MARY. In September, she went to [facility]; bought a knee pad, which made no difference. Currently reports that her back pain has resolved. Was lifting sand bags and deck umbrella. Last time she had back pain was 2 weeks ago; started at end of september. Regarding balance: cataract surgery (near>far) which throws off balance; reports no falls but has to walk on uneven surfaces on ground and many stairs. Lives alone. 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 Patient reports balance is better, and is better at moving more carefully. PT-OP-D Balance Start: 11/22/23 11:17 Freq: Status: Active Protocol: Document 11/22/23 11:18 NM (Rec: 11/22/23 15:49 NM [id number]) Balance Tests mCTSIB mCTSIB Position 1 EO, stable: 30 sec mCTSIB Position 2 EC, stable: 10 sec mCTSIB Position 3 EO, foam: 12 sec mCTSIB Position 4 EC, foam: 5 sec Single Limb Standing Single Limb- Right 8 sec Single Limb- Left 5 sec Tandem Tandem Standing 3 sec but requires help to step PT-OP-E Functional Tests Start: 11/22/23 11:17 Freq: Status: Active Protocol: Document 11/22/23 11:18 NM (Rec: 11/22/23 12:06 NM [id number]) Functional Tests 30 Second Sit to Stand Test Score 15 Dynamic Gait Index (DGI) Score Five Times Sit to Stand Test Score 8 sec PT-OP-F Manual Assessment Start: 11/22/23 11:17 Freq: Status: Active Protocol: Document 11/22/23 11:18 NM (Rec: 11/22/23 12:06 NM [id number]) Manual Assessments Soft Tissue Assessment Soft Tissue Mobility Assessment Increased hamstring length bilaterally, tight L ITB. Trunk shortness and due to scoliosis Joint Mobility Assessment Joint Mobility Assessment No ligamentous instability of L knee. Hypomobile lumbar spine with P-A springing PT-OP-G Mobility & Gait Start: 11/22/23 11:17 Freq: Status: Active Protocol: Document 11/22/23 11:18 NM (Rec: 11/22/23 12:06 NM [id number]) OP Gait Assessment Gait Distance (Feet) 300 Assistive Devices Assistive Device Gait Belt Gait Deviations General Gait Pattern Antalgic,Decreased Stride Length,Decreased Feet Clearance,Flexed Trunk Factors Limiting Gait Function Factors Limiting Gait Function Decreased Activity Tolerance, Pain Comments Gait Comments Demos B foot ER and trunk has tendency to lean L Stair Climbing Evaluation Comments Stair Climbing Comments rail, ER, pain near paterlla medial PT-OP-J Posture/Palpation/Skin Start: 11/22/23 11:17 Freq: Status: Active Protocol: Document 11/22/23 11:18 NM (Rec: 11/22/23 12:06 NM [id number]) Posture Evaluation Position Standing T-Spine Posture Flexible Scoliosis on (R), Increased Kyphosis Thorax Posture (R) Prominent L-Spine Posture Increased Lordosis,Fixed Scoliosis on (L) Shoulder Posture (L) Elevated Pelvis Posture Anteriorly Tilted,(R) Iliac Crest Superior Weight Distribution Balanced Knee Posture (L) Genu Valgus,(R) Genu Valgus Patellar Posture (L) Superior,(R) Superior,(L) Laterally Tilted Ankle/Foot Posture (L) Pronated,(R) Pronated Comments Posture Comments rib hump Palpation Assessment Location lumbar spine Palpation Details Increased paraspinals tightness Mild tenderness along PSIS/SIJ L knee Palpation Details No tenderness to palpation PT-OP-K Range of Motion Start: 11/22/23 11:17 Freq: Status: Active Protocol: Document 11/22/23 11:18 NM (Rec: 11/22/23 12:06 NM [id number]) Lumbar Spine Range of Motion Lumbar Spine Active Percentage Flexion 100 Extension 100 Lateral Flexion Left 75 Lateral Flexion Right 100 Knee Goniometric Range of Motion Knee Right Flexion Active (degrees) 135 Hyper-Extension Active 2 Comments HS 170 deg Left Flexion Active (degrees) 130 Hyper-Extension Active 2 Comments HS 158 PT-OP-L Special Tests Start: 11/22/23 11:17 Freq: Status: Active Protocol: Document 11/22/23 11:18 NM (Rec: 11/22/23 12:06 NM [id number]) Special Tests Knee Special Tests Tammie's Test Test Results + PT-OP-M Strength Start: 11/22/23 11:17 Freq: Status: Active Protocol: Document 01/07/24 13:01 NM (Rec: 01/07/24 13:48 NM [id number]) Hip Strength Hip Manual Muscle Testing Right Flexion (L2) 4+ Good+ Extension (S1) 4+ Good+ Abduction 4 Good Adduction 4+ Good+ External Rotation 4+ Good+ Internal Rotation 4+ Good+ Comments 01/07/24: 4+/5 for all except abduction Left Flexion (L2) 4+ Good+ Extension (S1) 4 Good Abduction 4 Good Adduction 4+ Good+ External Rotation 4+ Good+ Internal Rotation 4+ Good+ Comments 01/07/24: 4+/5 for all except abduction and hip ext Knee Strength Knee Manual Muscle Testing Right Flexion (S2) 4+ Good+ Extension (L3) 4+ Good+ Comments 01/07/24: 4+/5 Left Flexion (S2) 4 Good Extension (L3) 4 Good Comments 01/07/24: 4/5, pain free PT-OP-Q Treatments Start: 11/22/23 11:17 Freq: Status: Active Protocol: Document 01/14/24 13:47 AB (Rec: 01/14/24 16:10 AB [id number]) Gym Equipment Shuttle Balance red Details feet on 4's, stagger, tandem mini squat Comments with head turns and visual scanning. Therapeutic Exercises Sitting Exercises seated hip abduction with band Side bilateral Resistance level 4 blue band Reps/Minutes one minute X 1 Standing Exercises monster walk Standing Exercise Name fwd Side bilateral Resistance level4 band at thighs Reps/Minutes 15 feet left and right Comments no complaints of pain pallof press Standing Exercise Name walkout only Side bilateral Resistance level 4 band Reps/Minutes 2X15 Comments verbal cues for alignment side steps Side bilateral Resistance level 4 band Reps/Minutes 10 feet left and right X 2 Comments reports minimal glute med activation without core bracing sit to stand with band Resistance level 4 blue band Reps/Minutes X15 X 2 Comments second set with 3 lb each UE calf stretch Standing Exercise Name 1. gastroc, 2. soleus Side bilateral Equipment Used MALATHI Reps/Minutes 1x60 ea Neuro Re-Education Treatment Balance Activities Hurdles Details over mat with objects over Reps/Duration 2 mats X 6 Comments CGA SLS Reps/Duration X20 seconds each LE tandem stepping Surface close SBA Reps/Duration 10 feet X 6 PT-OP-T Assessment and Plan Start: 11/22/23 11:17 Freq: Status: Active Protocol: Document 01/14/24 13:47 AB (Rec: 01/14/24 16:10 AB [id number]) Physical Therapy Assessment Goals Four Impairment balance Short Term Goal (STG) Pt will be able to maintain tandem stance at least 10 seconds or single leg stance at least 10 seconds without UE assistance in order to demonstrate improved hip/core strength and balance during gait 01/07/24: 20 seconds STG Duration 6 weeks MET [employer] Furnace [employer]er Goal (LTG) Pt will be able to maintain tandem stance at least 30 seconds or single leg stance at least 30 seconds without UE assistance in order to demonstrate improved hip/core strength and balance during gait LTG Duration 12 weeks Three Impairment trunk strength Short Term Goal (STG) Pt will be educated on core bracing, hip hinge, and body mechanics when picking up objects or lifting objects to decrease back pain 01/07/24: educated in previous session on core bracing; performed deadlifts today without resistance and with resistance; requires cueing for form but improved with reps STG Duration 6 weeks MET Shelter Goal (LTG) Pt will improve global trunk strength MMT to >4/5 MMT in order to demonstrate improved ability to brace core during functional ADLs, including lifting objects LTG Duration 12 weeks Two Impairment gait Short Term Goal (STG) Pt will report no increase in baseline pain with daily ambulation on flat surfaces in order to demonstrate improved pain management and hip strength 01/07/24: pt reports no knee pain with ambulation 2-3 mi on flat or hilly surfaces; returned to daily walks at [facility] STG Duration 6 weeks Shelter Goal (LTG) Pt will report no pain with ambulation on hills in order to demonstrate improved pain management and hip strength 01/07/24: pt reports no knee pain with ambulation 2-3 mi on flat or hilly surfaces LTG Duration 12 weeks MET One Impairment stairs Short Term Goal (STG) Pt will be able to perform at least 10 step ups on 6 step without increase in baseline pain in order to demonstrate improved BLE strength, pain management, and household mobility 01/07/24: can perform 2x10 step ups x6 step STG Duration 6 weeks MET [employer] Furnace [employer]er Goal (LTG) Pt will report no increase in baseline pain with at least 8 stairs with or without rail in order to demonstrate improved BLE strength, pain management , and household mobility LTG Duration 12 weeks Assessment Summary Assessment Greta was able to progress to level 4 band for Paloff press, hip strengthening, glute med activation and sit to stand this session. Patient ed to decrease ex to every other day . Patient agreeable for final visit with PT 01/28/2024 Physical Therapy Plan Next Visit Focus/Plan Next Note Type Discharge Summary Next Visit Plan review hip hinge, single leg press. Balance: unstable surfaces, floor transfers via half kneel, no visual input, pallof w/ overhead, hip 3 way, 6 eccentric step down and 8 step up, Y drill Hip strengthening: HS, glutes, LAQ,, hip 3 way, Balance training: SLS with support and decrease support, stable > unstable surface, narrow MELISSA fall risk, osteoporosis
--- NOTE | 2024-01-21 16:10 | PT-OP ANOTE ---
Patient no showed this session, but per previous conversation with patient this session was to be cancelled and patient was to have one more session with Jeaneth Cruz PT to be discharged on 01/28/2024.
--- NOTE | 2024-01-28 15:40 | PT.OTN ---
Current Diagnoses Dorsalgia, unspecified (01/28/24) Other lack of coordination (01/28/24) Weakness (01/28/24) Physical Therapy Treatment Note PT-OP-A Visit Information Start: 11/22/23 11:17 Freq: Status: Active Protocol: Document 01/28/24 13:02 NM (Rec: 01/28/24 13:48 NM [id number]) Out-Patient Physical Therapy Visit Information Visit Information Visit Type Discharge Summary Visit Start Time 13:03 Visit Stop Time 13:43 Visit Number 8 Evaluation Information Evaluation Date 11/22/23 Precautions Precautions fall risk, osteoporosis PT-OP-B Current Condition Start: 11/22/23 11:17 Freq: Status: Active Protocol: Document 11/22/23 11:18 NM (Rec: 11/22/23 12:06 NM [id number]) Current Condition History of Current Condition Onset Date September 2023 Current Complaints pain, gait, stairs History of Current Condition Pt visited doctor 1 month ago during walking because of annoying pain in L knee. PCP said biomechanics are wrong. Gave her exercises: knees over toes knee flex, which led to back pain when walking. She now has back pain. Pt reports that she has been walking less , due to busy. States no symptoms. Wants to be able to walk correctly. Has no symptoms currently. States that she thinks has more discomfort when walking up hill. Restarted walking 3 weeks ago, L knee pain. She has less pain as she walks, after 15 minutes. She reports balance is worse. She has knee pain also when going down stairs. Knee pain started gradually 6 months ago, until a month ago when she contacted doctor; stefanie HERNANDEZ. In September, she went to [facility]; bought a knee pad, which made no difference. Currently reports that her back pain has resolved. Was lifting sand bags and deck umbrella. Last time she had back pain was 2 weeks ago; started at end of september. Regarding balance: cataract surgery (near>far) which throws off balance; reports no falls but has to walk on uneven surfaces on ground and many stairs. Lives alone. 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 She is back to lifting program, which is going well. No limitations with ambulation . States only limitations with balance, but reports improving. Wants to discharge today PT-OP-D Balance Start: 11/22/23 11:17 Freq: Status: Active Protocol: Document 11/22/23 11:18 NM (Rec: 11/22/23 15:49 NM [id number]) Balance Tests mCTSIB mCTSIB Position 1 EO, stable: 30 sec mCTSIB Position 2 EC, stable: 10 sec mCTSIB Position 3 EO, foam: 12 sec mCTSIB Position 4 EC, foam: 5 sec Single Limb Standing Single Limb- Right 8 sec Single Limb- Left 5 sec Tandem Tandem Standing 3 sec but requires help to step PT-OP-E Functional Tests Start: 11/22/23 11:17 Freq: Status: Active Protocol: Document 11/22/23 11:18 NM (Rec: 11/22/23 12:06 NM [id number]) Functional Tests 30 Second Sit to Stand Test Score 15 Dynamic Gait Index (DGI) Score Five Times Sit to Stand Test Score 8 sec PT-OP-F Manual Assessment Start: 11/22/23 11:17 Freq: Status: Active Protocol: Document 11/22/23 11:18 NM (Rec: 11/22/23 12:06 NM [id number]) Manual Assessments Soft Tissue Assessment Soft Tissue Mobility Assessment Increased hamstring length bilaterally, tight L ITB. Trunk shortness and due to scoliosis Joint Mobility Assessment Joint Mobility Assessment No ligamentous instability of L knee. Hypomobile lumbar spine with P-A springing PT-OP-G Mobility & Gait Start: 11/22/23 11:17 Freq: Status: Active Protocol: Document 11/22/23 11:18 NM (Rec: 11/22/23 12:06 NM [id number]) OP Gait Assessment Gait Distance (Feet) 300 Assistive Devices Assistive Device Gait Belt Gait Deviations General Gait Pattern Antalgic,Decreased Stride Length,Decreased Feet Clearance,Flexed Trunk Factors Limiting Gait Function Factors Limiting Gait Function Decreased Activity Tolerance, Pain Comments Gait Comments Demos B foot ER and trunk has tendency to lean L Stair Climbing Evaluation Comments Stair Climbing Comments rail, ER, pain near paterlla medial PT-OP-J Posture/Palpation/Skin Start: 11/22/23 11:17 Freq: Status: Active Protocol: Document 11/22/23 11:18 NM (Rec: 11/22/23 12:06 NM [id number]) Posture Evaluation Position Standing T-Spine Posture Flexible Scoliosis on (R), Increased Kyphosis Thorax Posture (R) Prominent L-Spine Posture Increased Lordosis,Fixed Scoliosis on (L) Shoulder Posture (L) Elevated Pelvis Posture Anteriorly Tilted,(R) Iliac Crest Superior Weight Distribution Balanced Knee Posture (L) Genu Valgus,(R) Genu Valgus Patellar Posture (L) Superior,(R) Superior,(L) Laterally Tilted Ankle/Foot Posture (L) Pronated,(R) Pronated Comments Posture Comments rib hump Palpation Assessment Location lumbar spine Palpation Details Increased paraspinals tightness Mild tenderness along PSIS/SIJ L knee Palpation Details No tenderness to palpation PT-OP-K Range of Motion Start: 11/22/23 11:17 Freq: Status: Active Protocol: Document 01/28/24 13:02 NM (Rec: 01/28/24 13:48 NM [id number]) Knee Goniometric Range of Motion Knee Right Flexion Active (degrees) 135 Hyper-Extension Active 2 Comments HS 170 deg Left Flexion Active (degrees) 135 Hyper-Extension Active 0 Comments HS 158 PT-OP-L Special Tests Start: 11/22/23 11:17 Freq: Status: Active Protocol: Document 11/22/23 11:18 NM (Rec: 11/22/23 12:06 NM [id number]) Special Tests Knee Special Tests Tammie's Test Test Results + PT-OP-M Strength Start: 11/22/23 11:17 Freq: Status: Active Protocol: Document 01/28/24 13:02 NM (Rec: 01/28/24 13:48 NM [id number]) Trunk Strength Trunk Manual Muscle Testing Flexion 5 Normal Extension 5 Normal Rotation Left 5 Normal Rotation Right 5 Normal Lateral Flexion Left 4 Good Lateral Flexion Right 4 Good Comments pain free 01/28/24: 4/5 for lateral flexion, 5/5 for rotation Hip Strength Hip Manual Muscle Testing Right Flexion (L2) 4+ Good+ Extension (S1) 4+ Good+ Abduction 4 Good Adduction 4+ Good+ External Rotation 4+ Good+ Internal Rotation 4+ Good+ Comments 01/28/24, 01/07/24: 4+/5 for all except abduction Left Flexion (L2) 4+ Good+ Extension (S1) 4+ Good+ Abduction 4+ Good+ Adduction 4+ Good+ External Rotation 4+ Good+ Internal Rotation 4+ Good+ Comments 01/07/24: 4+/5 for all except abduction and hip ext 01/28/24: 4+ for all Knee Strength Knee Manual Muscle Testing Right Flexion (S2) 4+ Good+ Extension (L3) 4+ Good+ Comments 01/07/24: 4+/5 Left Flexion (S2) 4 Good Extension (L3) 4+ Good+ Comments 01/07/24: 4/5, pain free 01/28/24: 4/5 for knee flex only PT-OP-Q Treatments Start: 11/22/23 11:17 Freq: Status: Active Protocol: Document 01/28/24 13:02 NM (Rec: 01/28/24 13:48 NM [id number]) Therapeutic Exercises Supine Exercises SLR Supine Exercise Name 1. neutral, 2. ER (9:00), 3. IR (3:00) Side bilateral Resistance AROM Reps/Minutes 10x3 ea Comments pain free, L more challenging than R Sitting Exercises HSC Side bilateral Resistance level 4 band at ankles Reps/Minutes 3x10 ea w/ 3 hold Comments L more challenging than R Standing Exercises step up Standing Exercise Name 1. stairs, 2. fwd step up w/ hip flexion Side bilateral Reps/Minutes 1. 20 w/o rail support, 2. 15 ea w/ 1 hand support DF mobilization Side bilateral Equipment Used 2nd 6 step Reps/Minutes 2 sets x ea toe Comments pain free; cued to keep heel on step side steps Side bilateral Resistance level 4 band at ankles Reps/Minutes 2x10 ft squat with band Standing Exercise Name buttock tap to chair Side bilateral Reps/Minutes X10 Comments verbal and visual cues, reports no knee pain * Performs in gym class per PT Neuro Re-Education Treatment Balance Activities Narrow MELISSA Details HEP Surface close SBA Comments 1. tandem stance for time w/o UE assist, 20 ea foot 2. tandem stance for time with prn hand support, 2x30 ea foot Educated to try to step without holding on SLS Details HEP Surface close SBA Comments 1. for time: RLE 30 sec, LLE 12 sec 2. 2x30 ea leg, prn hand support for balance tandem stepping Details HEP Surface close SBA Reps/Duration 2x8 ft ea Comments prn hand support PT-OP-T Assessment and Plan Start: 11/22/23 11:17 Freq: Status: Active Protocol: Document 01/28/24 13:02 NM (Rec: 01/28/24 13:48 NM [id number]) Physical Therapy Assessment Goals Four Impairment balance Short Term Goal (STG) Pt will be able to maintain tandem stance at least 10 seconds or single leg stance at least 10 seconds without UE assistance in order to demonstrate improved hip/core strength and balance during gait 01/07/24: 20 seconds STG Duration 6 weeks MET Senior Care Goal (LTG) Pt will be able to maintain tandem stance at least 30 seconds or single leg stance at least 30 seconds without UE assistance in order to demonstrate improved hip/core strength and balance during gait 01/28/24: 30 sec RLE, 12 sec LLE for SLS; tandem stance 20 seconds LTG Duration 12 weeks NOT MET Three Impairment trunk strength Short Term Goal (STG) Pt will be educated on core bracing, hip hinge, and body mechanics when picking up objects or lifting objects to decrease back pain 01/07/24: educated in previous session on core bracing; performed deadlifts today without resistance and with resistance; requires cueing for form but improved with reps STG Duration 6 weeks MET Powder Blender Goal (LTG) Pt will improve global trunk strength MMT to >4/5 MMT in order to demonstrate improved ability to brace core during functional ADLs, including lifting objects 01/28/24: 4/5 lateral flexion, 5/5 for rotation/flex/ext LTG Duration 12 weeks MET Two Impairment gait Short Term Goal (STG) Pt will report no increase in baseline pain with daily ambulation on flat surfaces in order to demonstrate improved pain management and hip strength 01/07/24: pt reports no knee pain with ambulation 2-3 mi on flat or hilly surfaces; returned to daily walks at [facility] STG Duration 6 weeks Senior Care Goal (LTG) Pt will report no pain with ambulation on hills in order to demonstrate improved pain management and hip strength 01/07/24: pt reports no knee pain with ambulation 2-3 mi on flat or hilly surfaces LTG Duration 12 weeks MET One Impairment stairs Short Term Goal (STG) Pt will be able to perform at least 10 step ups on 6 step without increase in baseline pain in order to demonstrate improved BLE strength, pain management, and household mobility 01/07/24: can perform 2x10 step ups x6 step STG Duration 6 weeks MET Powder Blender Goal (LTG) Pt will report no increase in baseline pain with at least 8 stairs with or without rail in order to demonstrate improved BLE strength, pain management , and household mobility 01/28/24: 20 steps without pain or hand use LTG Duration 12 weeks MET Progress Towards Goals Progress Towards Goals Progressing Toward Goals,Goals Met Progress Comments Did not meet balance goal Assessment Summary Assessment Pt tolerated session well. Demonstrates improved BLE strength and stability during exercises. Session emphasis on establishing a maintenance HEP for pt to perform 3x/wk. Pt demonstrates longer stance time in SLS and tandem, but LLE is more limited than RLE. Initiated seated HSC and supine SLR to improve muscle deficits in L hamstrings and hip flexors. Pt able to progress to forward step up without limitations due to knee and no LOB with additional hip flexion once in SLS. Good form and feedback to buttock tap to chair with resistance band, able to progress to level 4 band for both squats and side stepping. Issued maintenance program for 3x/wk. Physical Therapy Plan Frequency and Duration Frequency of Treatment 1-2x/wk Duration of treatment (weeks) 12 Plan of Care Start Date 11/22/23 Plan of Care End Date 02/15/24 Therapeutic Interventions Therapeutic Interventions Balance Training,Gait Training ,Home Exercise Program,Joint Mobilizations,Manual Therapy, Neuromuscular Re-education, Orthotic/Prosthetic Management ,Patient/Caregiver Education, Self-Care/Home Management,Soft Tissue Mobilization,Taping, Therapeutic Activities, Therapeutic Exercises Modalities Cold Pack/Ice Massage,Electric Stimulation,Hot Packs, Ultrasound Other Therapeutic Interventions No grade IV mobilizations Pelvic realignment Discharge Physical Therapy Discharge Reasons Patient Request Discharge Comments All goals met except balance goals Next Visit Focus/Plan Next Visit Plan discharge from PT
== END 2024-02-15 15:09 | disposition home or self-care (01) ==
LOC: PHYS 13:00
PROVIDERS: Family Provider Internal Medicine; PCP Internal Medicine; Referring Provider Internal Medicine; Visit Provider Internal Medicine
DX: M54.9 Dorsalgia, unspecified (principal); R53.1 Weakness; R27.8 Other lack of coordination
CPT/HCPCS: 97110; 97112; 97140; 97161; 97530

== ENCOUNTER → 2024-01-31 14:01 | Outpatient (CLI) | payer MEDICARE, SELFPAY ==
[2023-08-30 15:47] VITALS: BMI 23.9
[2024-01-31 14:22] LABS: Appearance Urine UA CLEAR; Bilirubin Urine UA NEGATIVE (NEGATIVE); Color Urine UA YELLOW; Glucose Urine UA NEGATIVE (Negative); Ketones Urine UA NEGATIVE (NEGATIVE); Leukocyte Esterase Urine UA NEGATIVE (NEGATIVE); Nitrite Urine UA NEGATIVE (Negative); Occult Blood Urine UA NEGATIVE (Negative); Protein Urine UA NEGATIVE (Negative); Specific Gravity Urine UA 1.025 (1.000-1.035); Urobilinogen Urine UA 0.2 E.U./dL (0.2)
[2024-01-31 14:34] LABS: Bacteria Urine None Seen; RBC Urine None Seen (0-5/HPF); Squamous Epithelial Cell Urine 0-1 /HPF (0-5/HPF); Urine Volume 10mL (spun); WBC Urine 0-1/HPF (0-5/HPF)
[2024-01-31 14:35] LABS: Amorphous Sediment Urine 1+; Culture Indicated Urine Cult Not Indicated
== END ==
PROVIDERS: Family Provider Internal Medicine; PCP Internal Medicine; Referring Provider Internal Medicine; Visit Provider Internal Medicine
DX: R32 Unspecified urinary incontinence (principal); Z87.440 Personal history of urinary (tract) infections
CPT/HCPCS: 81001

== ENCOUNTER → 2024-08-19 14:37 | Outpatient (CLI) | payer MEDICARE, SELFPAY ==
[2023-08-30 15:47] VITALS: BMI 23.9
[2024-08-19 16:18] LABS: Hemoglobin A1C% w Est Avg Glu 5.2 % (4.0-6.0)
[2024-08-19 16:48] LABS: TSH w/ Reflex to FT4 2.98 uIU/mL (0.47-4.68)
[2024-08-19 17:06] LABS: Aspartate Aminotransferase 27 IU/L (14-36); BUN Creatinine Ratio 24.7 (6-22); Blood Urea Nitrogen 21 mg/dL (7-17); Calcium 10.1 mg/dL (8.4-10.2); Carbon Dioxide 26 mmol/L (22-32); Chloride 104 mmol/L (98-107); Cholesterol 206 mg/dL (140-199); Estimated Glomerular Filt Rate > 60 mL/min (>60); Glucose 130 mg/dL (80-110); HDL Cholesterol 50 mg/dL (40-60); HEMOLYSIS < 15 (0-50); LDL Cholesterol Calculated 111 mg/dL (<100); Potassium 4.1 mmol/L (3.4-5.1); Sodium 138 mmol/L (137-145); Triglycerides 224 mg/dL (35-150)
== END ==
LOC: LAB 14:38
PROVIDERS: Family Provider Internal Medicine; PCP Internal Medicine; Referring Provider Internal Medicine; Visit Provider Internal Medicine
DX: E11.65 Type 2 diabetes mellitus with hyperglycemia (principal); E78.2 Mixed hyperlipidemia
CPT/HCPCS: 80048; 80061; 83036; 84443; 84450

== ENCOUNTER → 2024-11-21 10:11 | Outpatient (CLI) | payer MEDICARE, SELFPAY ==
[2023-08-30 15:47] VITALS: BMI 23.9
--- NOTE | 2024-11-21 10:20 | DI.MG.S_ITS ---
MM diagnostic mammo BI: 11/21/2024. BI-RADS: 1 CLINICAL: 84-year old female for bilateral diagnostic mammogram. Tyrer-Cuzick lifetime risk of 0.5%. No personal or first-degree family history of breast cancer. The patient reports pain (3 months) in the right breast. PRIOR EXAMS 05/24/2020, 05/29/2018, 05/01/2016, 12/08/2014. MAMMOGRAPHY TECHNIQUE: 2D and 3D (tomosynthesis) digital mammographic views obtained, with additional images as needed for full coverage. Current study was also evaluated with a Computer Aided Detection (CAD) system. DENSITY C. The breasts are heterogeneously dense, which may obscure small masses. MAMMOGRAPHY FINDINGS Right: No mammographic correlate for pain. Patient did not endorse a focal area today. No suspicious mass, asymmetry, microcalcification, or other abnormality seen. Left: No suspicious mass, asymmetry, microcalcification, or other abnormality seen. IMPRESSION: * No evidence of malignancy. RECOMMENDATIONS * Recommend clinical follow up for persistent or worsening symptoms with instructions to return sooner if there is development of any clinically suspicious findings in the interim. Bilateral * Annual screening mammography. OVERALL ASSESSMENT CATEGORY BI-RADS-1: Negative. [employer] recommends annual screening mammography beginning at age 40 for women with average risk of breast cancer. ELECTRONICALLY SIGNED: Roverto Byrd M.D. on 11/21/2024 at 11:05:50 AM PT Interpreting Station ID: [id number]
== END ==
LOC: MAMMO 10:11
PROVIDERS: Family Provider Internal Medicine; PCP Internal Medicine; Referring Provider Internal Medicine; Visit Provider Internal Medicine
DX: N64.4 Mastodynia (principal); R92.333 Mammographic heterogeneous density, bilateral breasts
CPT/HCPCS: 77066; G0279